=== PATIENT | female | born 1955 | race Hispanic/Latino ===

== ENCOUNTER → 2018-04-07 | Outpatient (CLI) | payer OTHER ==
[~2018-04-07] MED LIST: ACAR25TA2 PO; DULO30CA51 PO; FENO160T16 PO; FURO40TA5 PO; GLIM4TAB3 PO; INSU100V3 SQ; LOSA25TA16 PO; METO-408 PO; METO10TA3 PO; MIRT30TA7 PO; NITR0.4T SL; NPH,100V SQ; ONDA4TAB10 PO; PANT40TA25 PO; PRAV80TA21 PO; TOPI50TA24 PO
== END | disposition home or self-care (01) ==
LOC: OIH 08:21
PROVIDERS: ATTEND Internal Medicine Gastroenterology
DX: K59.04 Chronic idiopathic constipation (principal)
CPT/HCPCS: 74018

== ENCOUNTER → 2018-08-18 | Outpatient (CLI) | payer OTHER ==
[~2018-08-18] MED LIST changes: -LOSA25TA16 PO; +LOSA25TA41 PO; +MIRT-73 PO; -MIRT30TA7 PO
== END | disposition home or self-care (01) ==
LOC: RAH 10:40
PROVIDERS: ATTEND Internal Medicine Gastroenterology
DX: K31.89 Other diseases of stomach and duodenum (principal)
CPT/HCPCS: 78264; A9541

== ENCOUNTER → 2020-01-26 | Outpatient (CLI) | payer OTHER ==
[~2020-01-26] MED LIST changes: -DULO30CA51 PO; +DULO30CA52 PO; -GLIM4TAB3 PO; +GLIM4TAB36 PO; -PANT40TA25 PO; +PANT40TA54 PO
== END | disposition home or self-care (01) ==
LOC: SHCH 09:19
PROVIDERS: ATTEND Internal Medicine Cardiovascular Disease
DX: I08.0 Rheumatic disorders of both mitral and aortic valves (principal); R09.89 Other specified symptoms and signs involving the circulatory and respiratory systems; I10 Essential (primary) hypertension
CPT/HCPCS: 93306; 93880

== ENCOUNTER → 2020-09-01 | Outpatient (CLI) | payer OTHER ==
[~2020-09-01] MED LIST changes: +REGADENOSON 0.4 MG/5 ML PF SYG IVP SCH
== END | disposition home or self-care (01) ==
LOC: SHCH 09:28
PROVIDERS: ATTEND Internal Medicine Cardiovascular Disease
DX: R01.1 Cardiac murmur, unspecified (principal); I10 Essential (primary) hypertension; R53.83 Other fatigue; R42 Dizziness and giddiness; F41.9 Anxiety disorder, unspecified; R68.2 Dry mouth, unspecified; R06.02 Shortness of breath
CPT/HCPCS: 78452; 93017; 96374; A9500 ×2

== ENCOUNTER → 2020-10-14 | Outpatient (CLI) | payer OTHER ==
[~2020-10-14] VITALS: Ht 158.8 cm; Wt 123.8 kg
[~2020-10-14] MED LIST changes: +0.9% NACL 500ML IV.SOLN 500 ML IV SCH; +BUSP15TA3 PO; +CLOP75TA32 PO; +NPH,100I SQ; +POTA20TA12 PO; -REGADENOSON 0.4 MG/5 ML PF SYG IVP SCH; +RIVA15TA PO; +TIZA-194 PO
[2020-10-14 09:41] LABS: BASOPHILS % (AUTO) 0.6 % (0.0-5.0); EOSINOPHILS % (AUTO) 4.3 % (0.0-8.0); HEMATOCRIT 39.7 % (36-48); LYMPHOCYTES % (AUTO) 17.1 % (21.0-51.0); MEAN CORPUSCULAR HEMOGLOBIN 28.2 pg (27.0-33.0); MEAN CORPUSCULAR HGB CONC 30.2 g/dL (32.0-36.0); MEAN CORPUSCULAR VOLUME 93.2 fL (79-99); MONOCYTES % (AUTO) 5.2 % (3.0-13.0); NEUTROPHILS % (AUTO) 72.4 % (40.0-77.0); PLATELET COUNT (AUTO) 265 K/uL (130-400); RED BLOOD CELL COUNT(AUTO) 4.26 MIL/uL (4.00-5.50); RED CELL DISTRIBUTION WIDTH 14.8 % (11.0-15.5); WHITE BLOOD COUNT (AUTO) 5.4 K/uL (4.8-10.8)
[2020-10-14 09:48] LABS: CREATININE 1.4 mg/dL (0.5-1.5); POTASSIUM 4.9 mmol/L (3.5-5.1)
[2020-10-14 09:50] LABS: APPEARANCE,URINE Clear (CLEAR); BILIRUBIN,URINE Negative (NEGATIVE); COLOR,URINE Yellow (YELLOW); GLUCOSE, URINE (UA) Negative (NEGATIVE); KETONES,URINE Negative (NEGATIVE); LEUKOCYTE ESTERASE ,URINE Small (NEGATIVE); NITRATE,URINE Negative (NEGATIVE); OCCULT BLOOD,URINE Negative (NEGATIVE); PROTEIN,URINE Negative (NEGATIVE)
[2020-10-14 09:53] LABS: INR 1.28 (0.85-1.15); PROTHROMBIN TIME 13.6 SEC (9.6-11.6)
[2020-10-14 09:54] LABS: PARTIAL THROMBOPLASTIN TIME 33.6 SEC (26.3-35.5)
[2020-10-14 10:14] VITALS: BP 145/66
[2020-10-14 10:16] LABS: BACTERIA,URINE Rare /HPF (None Seen); RBC,URINE 0-1 /HPF (0-1); SQUAMOUS EPITHELIAL CELL,UR Rare /HPF (0-2); WBC,URINE 0-1 /HPF (0-1)
== END | disposition home or self-care (01) ==
LOC: EDSTATUS 08:00 → DAH 10:00
PROVIDERS: ATTEND Internal Medicine Cardiovascular Disease
DX: Z01.810 Encounter for preprocedural cardiovascular examination (principal); I25.10 Atherosclerotic heart disease of native coronary artery without angina pectoris; Z79.01 Long term (current) use of anticoagulants
CPT/HCPCS: 36415; 71045; 80048; 81001; 85025; 85610; 85730; 93005

== ENCOUNTER 2020-10-21 10:26 | Observation (INO) | payer OTHER ==
[2020-10-19 12:50] VITALS: BP 142/79
[~2020-10-21] VITALS: Ht 157.5 cm; Wt 173.1 kg
[~2020-10-21 10:26] MED LIST changes: -0.9% NACL 500ML IV.SOLN 500 ML IV SCH; +0.9%NACL 1000ML 1,000 ML IV SCH; -POTA20TA12 PO
[2020-10-21 10:46] VITALS: BP 138/51
[2020-10-21 11:14] LABS: HEMATOCRIT 37.9 % (36-48); MEAN CORPUSCULAR HEMOGLOBIN 28.6 pg (27.0-33.0); MEAN CORPUSCULAR HGB CONC 30.1 g/dL (32.0-36.0); MEAN CORPUSCULAR VOLUME 95.2 fL (79-99); PLATELET COUNT (AUTO) 264 K/uL (130-400); RED BLOOD CELL COUNT(AUTO) 3.98 MIL/uL (4.00-5.50); RED CELL DISTRIBUTION WIDTH 14.8 % (11.0-15.5); WHITE BLOOD COUNT (AUTO) 6.1 K/uL (4.8-10.8)
[2020-10-21 11:16] LABS: CREATININE 1.4 mg/dL (0.5-1.5); POTASSIUM 4.2 mmol/L (3.5-5.1)
[2020-10-21 11:18] LABS: BASOPHILS % (AUTO) 0.5 % (0.0-5.0); EOSINOPHILS % (AUTO) 3.7 % (0.0-8.0); LYMPHOCYTES % (AUTO) 14.4 % (21.0-51.0); MONOCYTES % (AUTO) 5.9 % (3.0-13.0)
[2020-10-21 11:47] LABS: INR 1.11 (0.85-1.15)
[2020-10-21 11:48] LABS: PARTIAL THROMBOPLASTIN TIME 27.6 SEC (26.3-35.5)
[2020-10-21 14:51] LABS: APPEARANCE,URINE Clear (CLEAR); BILIRUBIN,URINE Negative (NEGATIVE); COLOR,URINE Yellow (YELLOW); GLUCOSE, URINE (UA) Negative (NEGATIVE); KETONES,URINE Negative (NEGATIVE); LEUKOCYTE ESTERASE ,URINE Small (NEGATIVE); NITRATE,URINE Negative (NEGATIVE); OCCULT BLOOD,URINE Negative (NEGATIVE); PROTEIN,URINE Negative (NEGATIVE); UROBILINOGEN,URINE 0.2 mg/dL (0.2-1.0)
[2020-10-21 15:05] LABS: BACTERIA,URINE Rare /HPF (None Seen); RBC,URINE None Seen /HPF (0-1); SQUAMOUS EPITHELIAL CELL,UR 0-2 /HPF (0-2); WBC,URINE 0-1 /HPF (0-1)
[2020-10-21] MEDS ORDERED: LIDOCAINE HCL 400MG/20ML VIAL ONE (16:22)
[2020-10-21] MEDS ORDERED: NITROGLYCERIN 2 MG VIAL IV ONE (16:22)
[2020-10-21] MEDS ORDERED: IOHEXOL-350 50ML VIAL IV ONE (16:22)
[2020-10-21] MEDS ORDERED: SODIUM BICARB 50MEQ 50ML VIAL 50 ML ONE (16:22)
[2020-10-21] MEDS ORDERED: MIDAZOLAM HCL 1 MG/ML 2ML VIAL ONE (16:22)
[2020-10-21] MEDS ORDERED: MEPERIDINE-PF 25 MG/ML SYG ONE (16:22)
[2020-10-21] MEDS ORDERED: IOHEXOL-350 75 ML VIAL IV ONE (16:22)
[2020-10-21] MEDS: 0.9%NACL 10ML VIAL IVP SCH (18:00)
[2020-10-21] MEDS ORDERED: GLUCAGON 1MG KIT 1 MG ML IM PRN ×2 (18:00→18:30)
[2020-10-21] MEDS ORDERED: DEXTROSE 50%-WATER 50 ML DISP.SYRIN IV PRN ×2 (18:00→18:30)
[2020-10-21] MEDS ORDERED: POTASSIUM CHLORIDE 10% ELIXIR 20 MEQ/15 ML UDCUP PO PRN (18:30)
[2020-10-21] MEDS ORDERED: LIDOCAINE HCL-MPF 1% 2ML VIAL IV PRN (18:30)
[2020-10-21] MEDS ORDERED: POTASSIUM CHLORIDE 20MEQ/100ML 100 ML IV PRN (18:30)
[2020-10-21] MEDS ORDERED: KCL 20 MEQ ERTAB PO PRN (18:30)
[2020-10-21 20:00] VITALS: BP 127/45
[2020-10-21] MEDS: BUSPIRONE HCL 5 MG TABLET PO SCH (20:56)
[2020-10-21] MEDS ORDERED: INSULIN HUMULIN R 100 UNIT/ML 3ML SQ SCH (21:00)
[2020-10-21] MEDS: INSULIN HUMULIN R 100 UNIT/ML 3ML SQ SCH (21:00)
[2020-10-21] MEDS ORDERED: ATORVASTATIN 20 MG TABLET PO SCH (21:00)
[2020-10-21] MEDS ORDERED: TIZANIDINE HCL 2 MG TABLET PO SCH (21:00)
[2020-10-21] MEDS ORDERED: NON-FORMULARY MEDICATION 1 EACH (Buspirone HCl 15 MG) PO SCH (21:00)
[2020-10-21] MEDS ORDERED: LOSARTAN 25 MG TABLET PO SCH (21:00)
[2020-10-21] MEDS ORDERED: NON-FORMULARY MEDICATION 1 EACH (Pravastatin Sodium 80 MG) PO SCH (21:00)
[2020-10-21] MEDS ORDERED: INSULIN NPH 100 UNIT/ML 3ML SQ SCH (21:00)
[2020-10-21] MEDS ORDERED: MIRTAZAPINE 15 MG TABLET PO SCH (21:00)
[2020-10-21] MEDS ORDERED: NON-FORMULARY MEDICATION 1 EACH (Mirtazapine 30 MG) PO SCH (21:00)
[2020-10-21] MEDS: METOCLOPRAMIDE 10 MG TABLET PO SCH (21:01)
[2020-10-22] VITALS: BP 121/73
[2020-10-22] MEDS: 0.9%NACL 10ML VIAL IVP SCH ×2 (02:34→10:05)
[2020-10-22 04:00] VITALS: BP 134/57
[2020-10-22 05:32] LABS: HEMATOCRIT 37.1 % (36-48); MEAN CORPUSCULAR HGB CONC 29.6 g/dL (32.0-36.0); MEAN CORPUSCULAR VOLUME 94.4 fL (79-99); PLATELET COUNT (AUTO) 253 K/uL (130-400); RED BLOOD CELL COUNT(AUTO) 3.93 MIL/uL (4.00-5.50); RED CELL DISTRIBUTION WIDTH 14.9 % (11.0-15.5); WHITE BLOOD COUNT (AUTO) 5.9 K/uL (4.8-10.8)
[2020-10-22 05:43] LABS: CREATININE 1.5 mg/dL (0.5-1.5); POTASSIUM 3.6 mmol/L (3.5-5.1)
[2020-10-22] MEDS: INSULIN HUMULIN R 100 UNIT/ML 3ML SQ SCH ×2 (06:36→11:32)
[2020-10-22 08:00] VITALS: BP 128/65
[2020-10-22] MEDS ORDERED: FURO40TA5 PO ×2 (08:17)
[2020-10-22] MEDS ORDERED: POTA20TA12 PO ×2 (08:18)
[2020-10-22] MEDS ORDERED: KCL 20 MEQ ERTAB PO SCH (08:30)
[2020-10-22] MEDS ORDERED: FUROSEMIDE 40MG VIAL IV SCH (08:30)
[2020-10-22] MEDS ORDERED: CLOPIDOGREL 75MG TAB PO SCH (09:00)
[2020-10-22] MEDS ORDERED: NPH HUMAN INSULIN ISOPHANE SQ SCH (09:00)
[2020-10-22] MEDS ORDERED: [UNRECOGNIZED DRUG - OTHER] SQ SCH (09:00)
[2020-10-22] MEDS ORDERED: NON-FORMULARY MEDICATION 1 EACH (Topiramate 50 MG) PO SCH (09:00)
[2020-10-22] MEDS ORDERED: TOPIRAMATE 25 MG TABLET PO SCH (09:00)
[2020-10-22] MEDS ORDERED: PANTOPRAZOLE 40 MG TAB DR PO SCH (09:00)
[2020-10-22] MEDS ORDERED: FUROSEMIDE 40 MG TABLET PO SCH (09:00)
[2020-10-22] MEDS ORDERED: NON-FORMULARY MEDICATION 1 EACH (Fenofibrate 160 MG) PO SCH (09:00)
[2020-10-22] MEDS ORDERED: INSULIN NPH 100 UNIT/ML 3ML SQ SCH (09:00)
[2020-10-22] MEDS ORDERED: NON-FORMULARY MEDICATION 1 EACH (Metoprolol Succinate 25 MG) PO SCH (09:00)
[2020-10-22] MEDS ORDERED: METOPROLOL SUCCINATE 50 MG TAB.SR.24H PO SCH (09:00)
[2020-10-22] MEDS ORDERED: FENOFIBRATE NANOCRYSTALLIZED 145 MG TAB PO SCH (09:00)
[2020-10-22] MEDS: BUSPIRONE HCL 5 MG TABLET PO SCH (10:03)
[2020-10-22] MEDS: METOCLOPRAMIDE 10 MG TABLET PO SCH (10:04)
[2020-10-22 12:00] VITALS: BP 133/65
[2020-10-24] MEDS ORDERED: NITR0.4T SL ×2 (10:18)
== END 2020-10-22 16:40 | disposition home or self-care (01) ==
LOC: DAH 10:26 → 4BH 10:27
PROVIDERS: ADMIT Internal Medicine; ATTEND Internal Medicine
DX: I13.0 Hypertensive heart and chronic kidney disease with heart failure and stage 1 through stage 4 chronic kidney disease, or unspecified chronic kidney disease (principal); E11.22 Type 2 diabetes mellitus with diabetic chronic kidney disease; N18.32 Chronic kidney disease, stage 3b; I50.33 Acute on chronic diastolic (congestive) heart failure; E66.01 Morbid (severe) obesity due to excess calories; K21.9 Gastro-esophageal reflux disease without esophagitis; K58.1 Irritable bowel syndrome with constipation; I25.10 Atherosclerotic heart disease of native coronary artery without angina pectoris; D63.1 Anemia in chronic kidney disease; I48.91 Unspecified atrial fibrillation; H40.9 Unspecified glaucoma; H26.9 Unspecified cataract; G25.81 Restless legs syndrome; I73.9 Peripheral vascular disease, unspecified; G47.33 Obstructive sleep apnea (adult) (pediatric); F32.4 Major depressive disorder, single episode, in partial remission; H40.50X0 Glaucoma secondary to other eye disorders, unspecified eye, stage unspecified; H43.10 Vitreous hemorrhage, unspecified eye; H54.8 Legal blindness, as defined in USA; E11.65 Type 2 diabetes mellitus with hyperglycemia; K31.84 Gastroparesis; D68.59 Other primary thrombophilia; E11.36 Type 2 diabetes mellitus with diabetic cataract; E11.42 Type 2 diabetes mellitus with diabetic polyneuropathy; F32.9 Major depressive disorder, single episode, unspecified; E11.43 Type 2 diabetes mellitus with diabetic autonomic (poly)neuropathy; E11.51 Type 2 diabetes mellitus with diabetic peripheral angiopathy without gangrene; Z79.4 Long term (current) use of insulin; Z79.01 Long term (current) use of anticoagulants; Z95.1 Presence of aortocoronary bypass graft; Z68.44 Body mass index [BMI] 60.0-69.9, adult
CPT/HCPCS: 36415 ×2; 80048 ×2; 81001; 82948 ×4; 85025; 85027; 85610; 85730; 93459; 96372 ×2; 96374; A4215; A4216; A4221; A4222; A4223 ×3; A4606; A4615; A4663; C1760; C1894; G0378 ×23; J1644; J1815 ×3; J1940; J2175; J2250; J3490 ×3; Q9967 ×2; 99156; 99157

== ENCOUNTER 2021-01-16 07:07 | Day surgery (SDC) | payer OTHER ==
[~2021-01-16] VITALS: Ht 157.5 cm; Wt 128.4 kg
[2021-01-16] VITALS (9 sets, daily range): BP systolic 94–142; BP diastolic 39–63
[~2021-01-16 07:07] MED LIST changes: -0.9%NACL 1000ML 1,000 ML IV SCH; -ACAR25TA2 PO; -DULO30CA52 PO; -GLIM4TAB36 PO; -NPH,100V SQ; -ONDA4TAB10 PO; +POTA-192 PO
[2021-01-16] MEDS ORDERED: 0.9%NACL 1000ML 1,000 ML IV ONE (07:19)
[2021-01-16] MEDS ORDERED: PROPOFOL 10 MG/ML 20ML VIAL IV ONE (09:18)
[2021-04-21] MEDS ORDERED: [UNRECOGNIZED DRUG - OTHER] (12:17)
== END 2021-01-16 10:00 | disposition home or self-care (01) ==
LOC: DAH 07:07 → ENDO 07:07
PROVIDERS: ATTEND Surgery
DX: K21.9 Gastro-esophageal reflux disease without esophagitis (principal); Z20.822 Contact with and (suspected) exposure to COVID-19; K29.50 Unspecified chronic gastritis without bleeding; K31.7 Polyp of stomach and duodenum; I10 Essential (primary) hypertension; I25.10 Atherosclerotic heart disease of native coronary artery without angina pectoris; E66.01 Morbid (severe) obesity due to excess calories; G47.30 Sleep apnea, unspecified; E11.9 Type 2 diabetes mellitus without complications; F41.9 Anxiety disorder, unspecified; Z82.49 Family history of ischemic heart disease and other diseases of the circulatory system; Z83.3 Family history of diabetes mellitus; Z68.42 Body mass index [BMI] 45.0-49.9, adult; Z98.890 Other specified postprocedural states; Z98.84 Bariatric surgery status
CPT/HCPCS: 43239; 71045; 82948; 87635; 88305; 88342; 93005; A4215 ×2; A4221; A4222; A4223; A4606; A4620; A4657; A4663; C9803; J2704; J7030

== ENCOUNTER → 2021-01-20 | Outpatient (CLI) | payer OTHER ==
[~2021-01-20] MED LIST changes: -POTA-192 PO; +POTA20TA12 PO
== END | disposition home or self-care (01) ==
LOC: DTH 12:54
PROVIDERS: ATTEND Surgery
DX: E66.01 Morbid (severe) obesity due to excess calories (principal); G47.33 Obstructive sleep apnea (adult) (pediatric); I10 Essential (primary) hypertension; E11.9 Type 2 diabetes mellitus without complications; M19.91 Primary osteoarthritis, unspecified site; E78.00 Pure hypercholesterolemia, unspecified; K21.9 Gastro-esophageal reflux disease without esophagitis
CPT/HCPCS: 97803

== ENCOUNTER 2021-04-20 09:00 | Inpatient (IN) | payer OTHER ==
[2021-04-18 09:14] LABS: BASOPHILS % (AUTO) 0.6 % (0.0-5.0); EOSINOPHILS % (AUTO) 2.8 % (0.0-8.0); HEMATOCRIT 38.8 % (36-48); LYMPHOCYTES % (AUTO) 14.5 % (21.0-51.0); MEAN CORPUSCULAR HEMOGLOBIN 28.2 pg (27.0-33.0); MEAN CORPUSCULAR HGB CONC 30.9 g/dL (32.0-36.0); MEAN CORPUSCULAR VOLUME 91.3 fL (79-99); MONOCYTES % (AUTO) 5.8 % (3.0-13.0); NEUTROPHILS % (AUTO) 75.9 % (40.0-77.0); PLATELET COUNT (AUTO) 306 K/uL (130-400); RED BLOOD CELL COUNT(AUTO) 4.25 MIL/uL (4.00-5.50); RED CELL DISTRIBUTION WIDTH 13.8 % (11.0-15.5); WHITE BLOOD COUNT (AUTO) 7.1 K/uL (4.8-10.8)
[2021-04-18 09:25] LABS: CREATININE 1.7 mg/dL (0.5-1.5)
[2021-04-18 09:38] LABS: INR 1.27 (0.85-1.15); PROTHROMBIN TIME 13.5 SEC (9.6-11.6)
[~2021-04-20] VITALS: Ht 157.5 cm; Wt 115.8 kg
[~2021-04-20 09:00] MED LIST changes: -FENO160T16 PO; -FURO40TA5 PO; -NITR0.4T SL; -PANT40TA54 PO; -POTA20TA12 PO; -RIVA15TA PO
[2021-04-21 08:57] VITALS: BP 150/64
[2021-04-21] MEDS: CLINDAMYCIN IVPB 900MG/50ML 50 ML IV SCH (11:00)
[2021-04-21] MEDS ORDERED: POTA-79 PO (12:17)
[2021-04-21] MEDS ORDERED: MAGNESIUM CITRATE PO (12:17)
[2021-04-21] MEDS ORDERED: BISA-72 PO (12:17)
[2021-04-21] MEDS ORDERED: FURO40TA5 PO (12:17)
[2021-04-21] MEDS ORDERED: FENO50CA4 PO (12:17)
[2021-04-21] MEDS ORDERED: MULT-1367 PO (12:17)
[2021-04-21] MEDS ORDERED: SPIR25TA6 PO (12:17)
[2021-04-21] MEDS ORDERED: DABI150C PO (12:17)
[2021-04-21] MEDS ORDERED: DULO60CA64 PO (12:17)
[2021-04-23] MEDS: CLINDAMYCIN IVPB 900MG/50ML 50 ML IV SCH (11:00)
[2021-04-24] VITALS (25 sets, daily range): BP systolic 96–158; BP diastolic 44–76
[2021-04-24] MEDS ORDERED: BUPIVACAINE/PF 0.5% 30ML VIAL ONE (07:04)
[2021-04-24] MEDS ORDERED: SCOPOLAMINE HYDROBROMIDE 1 EACH ADH..PATCH TD ONE (07:51)
[2021-04-24] MEDS ORDERED: DEXMEDETOMIDINE HCL 200 MCG/2 ML VIAL IV ONE (07:54)
[2021-04-24] MEDS ORDERED: KETAMINE 50MG/ML SYRINGE 50 MG/ML DISP.SYRIN IV ONE (07:55)
[2021-04-24] MEDS ORDERED: PROPOFOL 10 MG/ML 20ML VIAL IV ONE (08:25)
[2021-04-24] MEDS ORDERED: MIDAZOLAM HCL 1 MG/ML 2ML VIAL ONE (08:25)
[2021-04-24] MEDS ORDERED: EPHEDRINE SULFATE 50 MG/ML AMPULE ONE (08:25)
[2021-04-24] MEDS ORDERED: ROCURONIUM BROMIDE 10MG/1ML 5ML VL ONE (08:26)
[2021-04-24] MEDS ORDERED: ONDANSETRON 4MG INJ ONE ×2 (08:28→10:08)
[2021-04-24] MEDS: CLINDAMYCIN IVPB 900MG/50ML 50 ML IV SCH (09:00)
[2021-04-24 09:22] LABS: INR 1.24 (0.85-1.15); PROTHROMBIN TIME 13.3 SEC (9.6-11.6)
[2021-04-24 09:23] LABS: PARTIAL THROMBOPLASTIN TIME 42.2 SEC (26.3-35.5)
[2021-04-24] MEDS ORDERED: PHENYLEPHRINE HCL 10 MG/ML 1ML VIAL IV ONE (09:49)
[2021-04-24 09:58] LABS: ABG BASE EXCESS -1.4 mmol/L (-2.0-3.0); ABG HCO3 23.9 mmol/L (21.0-28.0); ABG OXYGEN SATURATION 98.2 % (95.0-99.0); ABG PCO2 42 mmHg (32-45)
[2021-04-24] MEDS ORDERED: NITROGLYCERIN 1GM OINT 1 INCH/1GM TD ONE (10:09)
[2021-04-24] MEDS: 0.9%NACL 1000ML 1,000 ML IV SCH ×2 (10:10→11:46)
[2021-04-24] MEDS ORDERED: FENTANYL CITRATE PF 50 MCG/1 ML 2ML VIAL ONE (11:07)
[2021-04-24] MEDS ORDERED: SUGAMMADEX SODIUM 200 MG/2 ML VIAL IV ONE (11:10)
[2021-04-24] MEDS: ENOXAPARIN SODIUM 30 MG/0.3 ML SQ SCH ×2 (11:26→21:56)
[2021-04-24] MEDS ORDERED: ONDANSETRON 4MG INJ IVP PRN (11:30)
[2021-04-24] MEDS ORDERED: INSULIN HUMULIN R 100 UNIT/ML 3ML SQ SCH (11:30)
[2021-04-24] MEDS ORDERED: CLINDAMYCIN IVPB 600MG/50ML 50 ML IV SCH (11:30)
[2021-04-24] MEDS ORDERED: LACTATED RINGERS 1000ML 1,000 ML IV SCH (11:30)
[2021-04-24] MEDS ORDERED: DEXTROSE 50%-WATER 50 ML DISP.SYRIN IV PRN (16:30)
[2021-04-24] MEDS ORDERED: GLUCAGON 1MG KIT 1 MG ML IM PRN (16:30)
[2021-04-24] MEDS: CLINDAMYCIN IVPB 600MG/50ML 50 ML IV SCH (18:00)
[2021-04-24] MEDS: INSULIN HUMULIN R 100 UNIT/ML 3ML SQ SCH ×2 (18:04→22:06)
[2021-04-24] MEDS ORDERED: MORPHINE 4 MG SYG ONE (18:50)
[2021-04-24] MEDS: MORPHINE 5 MG/ML VIAL (5MG OR GREATER DOSE) IVP PRN (18:53)
[2021-04-24] MEDS ORDERED: LOSARTAN 25 MG TABLET PO SCH (21:00)
[2021-04-24] MEDS: FUROSEMIDE 40 MG TABLET PO SCH (21:54)
[2021-04-24] MEDS: FAMOTIDINE 20MG VIAL IV SCH (21:54)
[2021-04-25] MEDS: CLINDAMYCIN IVPB 600MG/50ML 50 ML IV SCH (01:50)
[2021-04-25 04:38] VITALS: BP 131/59
[2021-04-25 05:52] LABS: BASOPHILS % (AUTO) 0.1 % (0.0-5.0); HEMATOCRIT 28.4 % (36-48); LYMPHOCYTES % (AUTO) 4.7 % (21.0-51.0); MEAN CORPUSCULAR HEMOGLOBIN 28.2 pg (27.0-33.0); MEAN CORPUSCULAR HGB CONC 30.3 g/dL (32.0-36.0); MEAN CORPUSCULAR VOLUME 93.1 fL (79-99); NEUTROPHILS % (AUTO) 86.6 % (40.0-77.0); PLATELET COUNT (AUTO) 262 K/uL (130-400); RED BLOOD CELL COUNT(AUTO) 3.05 MIL/uL (4.00-5.50); WHITE BLOOD COUNT (AUTO) 8.3 K/uL (4.8-10.8)
[2021-04-25 06:09] LABS: ALBUMIN 3.3 g/dL (3.5-5.0); BILIRUBIN,TOTAL 0.9 mg/dL (0.2-1.0); MAGNESIUM 2.8 mg/dL (1.80-2.40); POTASSIUM 4.4 mmol/L (3.5-5.1); TOTAL PROTEIN, SERUM 6.7 g/dL (6.0-8.3)
[2021-04-25] MEDS: INSULIN HUMULIN R 100 UNIT/ML 3ML SQ SCH ×4 (06:44→21:42)
[2021-04-25 07:51] VITALS: BP 152/67
[2021-04-25] MEDS: FAMOTIDINE 20MG VIAL IV SCH ×2 (08:44→21:33)
[2021-04-25] MEDS: FUROSEMIDE 40 MG TABLET PO SCH ×2 (08:45→21:34)
[2021-04-25] MEDS: ENOXAPARIN SODIUM 30 MG/0.3 ML SQ SCH ×2 (08:46→21:36)
[2021-04-25] MEDS: SPIRONOLACTONE 25 MG TAB PO SCH (08:46)
[2021-04-25] MEDS: LOSARTAN 25 MG TABLET PO SCH ×2 (08:46→21:33)
[2021-04-25] MEDS: METOPROLOL SUCCINATE 50 MG TAB.SR.24H PO SCH (08:46)
[2021-04-25] MEDS: THIAMINE HCL 100 MG/ML 2ML VIAL IVP SCH (08:46)
[2021-04-25] MEDS: 0.9%NACL 1000ML 1,000 ML IV SCH (11:04)
[2021-04-25 11:10] VITALS: BP 123/54
[2021-04-25 15:57] VITALS: BP 134/57
[2021-04-25] MEDS: MORPHINE 5 MG/ML VIAL (5MG OR GREATER DOSE) IVP PRN (16:55)
[2021-04-25 20:33] VITALS: BP 121/47
[2021-04-25 23:22] VITALS: BP 118/50
[2021-04-26] MEDS: 0.9%NACL 1000ML 1,000 ML IV SCH (00:16)
[2021-04-26 04:57] LABS: BASOPHILS % (AUTO) 0.2 % (0.0-5.0); EOSINOPHILS % (AUTO) 0.8 % (0.0-8.0); HEMATOCRIT 24.8 % (36-48); MEAN CORPUSCULAR HEMOGLOBIN 28.2 pg (27.0-33.0); MEAN CORPUSCULAR HGB CONC 29.8 g/dL (32.0-36.0); MEAN CORPUSCULAR VOLUME 94.7 fL (79-99); MONOCYTES % (AUTO) 6.1 % (3.0-13.0); NEUTROPHILS % (AUTO) 85.3 % (40.0-77.0); PLATELET COUNT (AUTO) 218 K/uL (130-400); RED BLOOD CELL COUNT(AUTO) 2.62 MIL/uL (4.00-5.50); RED CELL DISTRIBUTION WIDTH 14.3 % (11.0-15.5)
[2021-04-26 05:00] VITALS: BP 120/54
[2021-04-26 05:24] LABS: BILIRUBIN,TOTAL 0.6 mg/dL (0.2-1.0); CREATININE 2.1 mg/dL (0.5-1.5); POTASSIUM 4.5 mmol/L (3.5-5.1); TOTAL PROTEIN, SERUM 6.5 g/dL (6.0-8.3)
[2021-04-26] MEDS: INSULIN HUMULIN R 100 UNIT/ML 3ML SQ SCH ×4 (06:19→21:11)
[2021-04-26 07:41] VITALS: BP 122/60
[2021-04-26] MEDS: THIAMINE HCL 100 MG/ML 2ML VIAL IVP SCH (09:55)
[2021-04-26] MEDS: FUROSEMIDE 40 MG TABLET PO SCH ×2 (09:55→21:02)
[2021-04-26] MEDS: METOPROLOL SUCCINATE 50 MG TAB.SR.24H PO SCH (09:55)
[2021-04-26] MEDS: LOSARTAN 25 MG TABLET PO SCH ×2 (09:55→21:02)
[2021-04-26] MEDS: FAMOTIDINE 20MG VIAL IV SCH ×2 (09:55→21:02)
[2021-04-26] MEDS: SPIRONOLACTONE 25 MG TAB PO SCH (09:56)
[2021-04-26] MEDS: ENOXAPARIN SODIUM 30 MG/0.3 ML SQ SCH ×2 (09:56→21:03)
[2021-04-26] MEDS: INSULIN GLARGINE 100 UNITS/ML 10 ML VIAL SQ SCH (09:57)
[2021-04-26 11:08] VITALS: BP 143/65
[2021-04-26 16:17] VITALS: BP 136/66
[2021-04-26 20:00] VITALS: BP 141/61
[2021-04-27] VITALS: BP 130/55
[2021-04-27] MEDS: 0.9%NACL 1000ML 1,000 ML IV SCH (02:04)
[2021-04-27 04:00] VITALS: BP 154/60
[2021-04-27 05:46] LABS: BASOPHILS % (AUTO) 0.4 % (0.0-5.0); EOSINOPHILS % (AUTO) 1.3 % (0.0-8.0); HEMATOCRIT 25.9 % (36-48); LYMPHOCYTES % (AUTO) 9.7 % (21.0-51.0); MEAN CORPUSCULAR HEMOGLOBIN 28.9 pg (27.0-33.0); MEAN CORPUSCULAR HGB CONC 30.1 g/dL (32.0-36.0); MEAN CORPUSCULAR VOLUME 95.9 fL (79-99); MONOCYTES % (AUTO) 5.9 % (3.0-13.0); NEUTROPHILS % (AUTO) 82.2 % (40.0-77.0); PLATELET COUNT (AUTO) 242 K/uL (130-400); RED CELL DISTRIBUTION WIDTH 14.2 % (11.0-15.5); WHITE BLOOD COUNT (AUTO) 8.4 K/uL (4.8-10.8)
[2021-04-27 06:06] LABS: BILIRUBIN,TOTAL 0.6 mg/dL (0.2-1.0); CREATININE 1.5 mg/dL (0.5-1.5); POTASSIUM 4.5 mmol/L (3.5-5.1); TOTAL PROTEIN, SERUM 6.8 g/dL (6.0-8.3)
[2021-04-27] MEDS: INSULIN HUMULIN R 100 UNIT/ML 3ML SQ SCH ×2 (06:20→12:38)
[2021-04-27 08:05] VITALS: BP 176/84
[2021-04-27] MEDS: THIAMINE HCL 100 MG/ML 2ML VIAL IVP SCH (08:33)
[2021-04-27] MEDS: FAMOTIDINE 20MG VIAL IV SCH (08:34)
[2021-04-27] MEDS: FUROSEMIDE 40 MG TABLET PO SCH (08:40)
[2021-04-27] MEDS: LOSARTAN 25 MG TABLET PO SCH (08:40)
[2021-04-27] MEDS: SPIRONOLACTONE 25 MG TAB PO SCH (08:40)
[2021-04-27] MEDS: ENOXAPARIN SODIUM 30 MG/0.3 ML SQ SCH (08:41)
[2021-04-27] MEDS: METOPROLOL SUCCINATE 50 MG TAB.SR.24H PO SCH (08:41)
[2021-04-27] MEDS: INSULIN GLARGINE 100 UNITS/ML 10 ML VIAL SQ SCH (08:48)
[2021-04-27 11:22] VITALS: BP 152/73
== END 2021-04-27 16:49 | disposition home or self-care (01) | DRG 621 ==
LOC: DAHIP 04-24 07:00 → EDSTATUS 04-24 09:00 → 3AH 04-24 12:50
PROVIDERS: ADMIT Surgery; ATTEND Surgery
PROC: 0D164ZA Bypass Stomach to Jejunum, Percutaneous Endoscopic Approach (ICD-10-PCS; principal; 2021-04-24 08:35)
PROC: 5A09357 Assistance with Respiratory Ventilation, Less than 24 Consecutive Hours, Continuous Positive Airway Pressure (ICD-10-PCS; 2021-04-24 08:35)
DX: E66.01 Morbid (severe) obesity due to excess calories (principal); K21.9 Gastro-esophageal reflux disease without esophagitis; I48.0 Paroxysmal atrial fibrillation; E78.5 Hyperlipidemia, unspecified; E11.319 Type 2 diabetes mellitus with unspecified diabetic retinopathy without macular edema; G47.33 Obstructive sleep apnea (adult) (pediatric); Z20.822 Contact with and (suspected) exposure to COVID-19; F32.A Depression, unspecified; I25.10 Atherosclerotic heart disease of native coronary artery without angina pectoris; H54.8 Legal blindness, as defined in USA; N18.9 Chronic kidney disease, unspecified; E11.22 Type 2 diabetes mellitus with diabetic chronic kidney disease; I13.10 Hypertensive heart and chronic kidney disease without heart failure, with stage 1 through stage 4 chronic kidney disease, or unspecified chronic kidney disease; Z68.42 Body mass index [BMI] 45.0-49.9, adult; Z88.0 Allergy status to penicillin; Z88.8 Allergy status to other drugs, medicaments and biological substances; Z95.1 Presence of aortocoronary bypass graft; Z95.5 Presence of coronary angioplasty implant and graft; Z79.02 Long term (current) use of antithrombotics/antiplatelets; Z79.01 Long term (current) use of anticoagulants; Z79.899 Other long term (current) drug therapy; Z83.3 Family history of diabetes mellitus; Z82.49 Family history of ischemic heart disease and other diseases of the circulatory system
CPT/HCPCS: 36415; 43235; 71045; 80048; 80053; 82435; 82803; 82947; 82948; 83605; 83735; 84100; 84132; 84295; 85018; 85025; 85610; 85730; 86850; 86900; 86901; 87635; 93005; 94660; 97039; G0378; J1650; J1815; J2250; J2270; J2370; J2405; J2704; J3010; J3411; J3490; J7030; J7120

== ENCOUNTER → 2021-10-04 | Outpatient (CLI) | payer OTHER ==
[~2021-10-04] MED LIST changes: +BISA-72 PO; +DABI150C PO; +DULO60CA64 PO; +FENO50CA4 PO; +FURO40TA5 PO; +MAGNESIUM CITRATE PO; +MULT-1367 PO; +POTA-79 PO; +SPIR25TA6 PO
== END | disposition home or self-care (01) ==
LOC: SHCH 13:18
PROVIDERS: ATTEND Internal Medicine Cardiovascular Disease
DX: I08.0 Rheumatic disorders of both mitral and aortic valves (principal); I48.0 Paroxysmal atrial fibrillation; I11.9 Hypertensive heart disease without heart failure; I25.10 Atherosclerotic heart disease of native coronary artery without angina pectoris; I65.23 Occlusion and stenosis of bilateral carotid arteries; E11.9 Type 2 diabetes mellitus without complications; E78.5 Hyperlipidemia, unspecified; Z95.5 Presence of coronary angioplasty implant and graft; Z95.1 Presence of aortocoronary bypass graft
CPT/HCPCS: 93306; 93880

== ENCOUNTER → 2021-10-18 | Outpatient (CLI) | payer OTHER | END | disposition home or self-care (01) | LOC: RAH 13:48 | PROVIDERS: ATTEND Internal Medicine | DX: S09.90XA Unspecified injury of head, initial encounter (principal); R41.82 Altered mental status, unspecified; X58.XXXA Exposure to other specified factors, initial encounter; Y93.89 Activity, other specified; Y92.89 Other specified places as the place of occurrence of the external cause; Y99.8 Other external cause status | CPT/HCPCS: 70450 ==

== ENCOUNTER → 2022-01-08 | Outpatient (CLI) | payer OTHER | END | disposition home or self-care (01) | LOC: RAH 09:22 | PROVIDERS: ATTEND Internal Medicine | DX: S09.90XA Unspecified injury of head, initial encounter (principal); W19.XXXA Unspecified fall, initial encounter; Y93.89 Activity, other specified; Y92.89 Other specified places as the place of occurrence of the external cause; Y99.8 Other external cause status | CPT/HCPCS: 70250 ==

== ENCOUNTER → 2022-07-02 | Outpatient (CLI) | payer OTHER ==
[~2022-07-02] MED LIST changes: +TOPI-255 PO; -TOPI50TA24 PO
== END | disposition home or self-care (01) ==
LOC: RAH 13:55
PROVIDERS: ATTEND Internal Medicine
DX: R22.1 Localized swelling, mass and lump, neck (principal)
CPT/HCPCS: 76536

== ENCOUNTER → 2023-06-26 | Outpatient (CLI) | payer OTHER ==
[~2023-06-26] MED LIST changes: +ARIP2TAB20 PO; -BISA-72 PO; -CLOP75TA32 PO; +CYAN10007 IJ; -DABI150C PO; -DULO60CA64 PO; +ESCI-8 PO; -FENO50CA4 PO; +FERR-72 PO; -FURO40TA5 PO; +GABA-529 PO; -INSU100V3 SQ; -LOSA25TA41 PO; -MAGNESIUM CITRATE PO; -METO-408 PO; -METO10TA3 PO; -MIRT-73 PO; +MIRT45TA83 PO; -MULT-1367 PO; +NITR0.4T50 SL; -NPH,100I SQ; +PANT40TA55 PO; -POTA-79 PO; -PRAV80TA21 PO; +PRAV80TA43 PO; +SCOP1PAT11 TD; -SPIR25TA6 PO; -TIZA-194 PO; -TOPI-255 PO
== END | disposition home or self-care (01) ==
LOC: RAH 13:39
PROVIDERS: ATTEND Nurse Practitioner
DX: H90.8 Mixed conductive and sensorineural hearing loss, unspecified (principal)
CPT/HCPCS: 70480

== ENCOUNTER → 2023-07-18 | Outpatient (CLI) | payer OTHER ==
[~2023-07-18] MED LIST changes: +PRAV80TA21 PO; -PRAV80TA43 PO
== END | disposition home or self-care (01) ==
LOC: RAH 10:06
PROVIDERS: ATTEND Orthopaedic Surgery
DX: H93.A2 Pulsatile tinnitus, left ear (principal); H81.4 Vertigo of central origin
CPT/HCPCS: 70544; 70547

== ENCOUNTER → 2023-07-26 | Outpatient (CLI) | payer OTHER | END | disposition home or self-care (01) | LOC: RAH 14:32 | PROVIDERS: ATTEND Orthopaedic Surgery | DX: G31.9 Degenerative disease of nervous system, unspecified (principal); H81.4 Vertigo of central origin; G93.89 Other specified disorders of brain | CPT/HCPCS: 70551 ==

== ENCOUNTER → 2024-03-26 | Outpatient (CLI) | payer OTHER ==
[~2024-03-26] MED LIST changes: -ARIP2TAB20 PO; +ARIP2TAB66 PO
[2024-03-26] MEDS: REGADENOSON 0.4 MG/5 ML PF SYG IVP ONE (11:37)
== END | disposition home or self-care (01) ==
LOC: SHCH 09:15
PROVIDERS: ATTEND Internal Medicine Cardiovascular Disease
DX: I48.0 Paroxysmal atrial fibrillation (principal); I10 Essential (primary) hypertension
CPT/HCPCS: 78452; 93017; J2785; A9500 ×2

== ENCOUNTER → 2024-04-23 | Outpatient (CLI) | payer OTHER ==
--- NOTE | 2024-04-29 06:40 | HMCSR ---
APPROVED REPORT EXAM: Two-dimensional and M-mode echocardiogram with Doppler and color Doppler. INDICATION Atrial Fibrillation Hypertension 2D Dimensions RVDd4.5 cmLVEF(%)67.2 (>50%)LVED Vol(simp.)120.0 mL IVSd0.9 (0.7-1.1cm)FS(%)37 %LVES Vol(simp.)44.0 mL LVDd4.9 (3.8-5.6cm)Ao Root(2D)2.9 (2.0-3.7cm)LVEF(%, simp.)64 % PWd1.0 (0.7-1.1cm)LVOT diam2.0 (1.8-2.4cm)LA ESV INDEX (BP)46.02 mL/m2 LVDs3.1 (2.5-4.0cm)IVC diam1.6 cm Aortic Valve AoV Vmax2.4 m/Yaquelin Peak GR22.3 mmHgLVOT Vmax0.9 m/s AoV VTI0.6 mAo Mean GR10.9 mmHgLVOT VTI0.25 m APRIL (VMAX)1.3 cm2Al P1/2T660 msAVA (VTI) 1.3 cm2 Mitral Valve MV E Hunf705.2 cm/sDECEL Qciq553 msMV Peak GR13 mmHg MV A Vmax63.1 cm/sP 1/2 T56 msMV Mean GR3 mmHg E/A ratio2.6MVA (PHT)3.9 cm2MVA (VTI)1.4 cm2 MR Max PG115 mmHg TDI E/E' Qweezx76.0E/E' Xxpbdgl41.8 Pulmonary Valve PV Vmax1.2 m/sPV VTI0.35 mPV Mean GR4 mmHg PV Peak GR5.5 mmHgPI End Amy. Tariq 1.3 cm/s Tricuspid Valve TR Vmax3.5 m/sRAP (EST) 3 flJzGCEX57.5 mmHg TR Peak GR48.5 mmHg Left Ventricle Left ventricular cavity size is normal. There is normal LV segmental wall motion. There is normal lef t ventricular wall thickness. LVEF is 60%. No left ventricle thrombus noted on this study. Grade 3 di astolic dysfunction. Right Ventricle The right ventricle is moderately dilated. Right ventricular systolic function is mildly to moderatel y reduced. Atria The left atrium is severely dilated. The right atrium is moderately dilated. Aortic Valve Aortic valve is trileaflet, with a calcified left coronary leaflet that exhibits decreased excursion. Mild aortic regurgitation. Mild to moderate aortic stenosis with a calculated aortic valve area is 1 .3 cm2 with maximum pressure gradient of 22.3 mmHg and mean pressure gradient of 10.9 mmHg. Mitral Valve Mitral valve leaflets are mildly calcified. Severe posterior mitral annular calcification. Mitral reg urgitation is mild. Mild to moderate calcific, non-rheumatic miotral stenosis with a calculated bessy l valve area is 1.4 cm2 with maximum pressure gradient of 13.2 mmHg and mean pressure gradient of 3 m mHg. Tricuspid Valve The tricuspid valve leaflets appear normal. There is moderate tricuspid regurgitation. Right ventricu lar systolic pressure is estimated at 50-60 mmHg. Pulmonic Valve The pulmonic valve leaflets are thin and pliable; valve motion is normal. There is trace to mild valv ular regurgitation. Great Vessels The aortic root is normal in size. The IVC is normal in size and collapses >50% with inspiration. Pericardium No pericardial effusion. Conclusion Left ventricular cavity size is normal. LVEF is 60%. Grade 3 diastolic dysfunction. The right ventricle is moderately dilated. Right ventricular systolic function is mildly to moderately reduced. The left atrium is severely dilated. The right atrium is moderately dilated. Aortic valve is trileaflet, with a calcified left coronary leaflet that exhibits decreased excursion. Mild aortic regurgitation. Mild to moderate aortic stenosis with a calculated aortic valve area is 1.3 cm2 with maximum pressure gradient of 22.3 mmHg and mean pressure gradient of 10.9 mmHg. Mitral valve leaflets are mildly calcified. Severe posterior mitral annular calcification. Mitral regurgitation is mild. Mild to moderate calcific, non-rheumatic miotral stenosis with a calculated mitral valve area is 1.4 cm2 with maximum pressure gradient of 13.2 mmHg and mean pressure gradient of 3 mmHg. There is moderate tricuspid regurgitation. Right ventricular systolic pressure is estimated at 50-60 mmHg. There is trace to mild valvular regurgitation. The aortic root is normal in size. The IVC is normal in size and collapses >50% with inspiration. No pericardial effusion.
== END | disposition home or self-care (01) ==
LOC: SHCH 14:18
PROVIDERS: ATTEND Internal Medicine Cardiovascular Disease
DX: I08.8 Other rheumatic multiple valve diseases (principal); I48.0 Paroxysmal atrial fibrillation; I11.9 Hypertensive heart disease without heart failure; I48.91 Unspecified atrial fibrillation
CPT/HCPCS: 93306

== ENCOUNTER 2024-07-23 06:40 | Day surgery (SDC) | payer OTHER ==
[2024-07-21 08:58] VITALS: BP 154/67; PULSE 53; RESP 14; TEMP 98.2
[2024-07-21 09:02] LABS: BASOPHILS # (AUTO) 0.03 K/uL (0.00-0.20); BASOPHILS % (AUTO) 0.9 % (0.0-5.0); EOSINOPHILS # (AUTO) 0.11 K/uL (0.00-0.70); EOSINOPHILS % (AUTO) 3.3 % (0.0-8.0); HEMATOCRIT 32.1 % (36-48); IMMATURE GRANULOCYTE ABSOLUTE 0.01 K/uL (0-1); LYMPHOCYTES # (AUTO) 0.9 K/uL (1.0-4.8); LYMPHOCYTES % (AUTO) 25.8 % (21.0-51.0); MEAN CORPUSCULAR HEMOGLOBIN 30.1 pg (27.0-33.0); MEAN CORPUSCULAR HGB CONC 31.8 g/dL (32.0-36.0); MEAN CORPUSCULAR VOLUME 94.7 fL (79-99); MONOCYTES # (AUTO) 0.3 K/uL (0.1-1.0); MONOCYTES % (AUTO) 7.7 % (3.0-13.0); NEUTROPHILS # (AUTO) 2.1 K/uL (1.8-7.7); PLATELET COUNT (AUTO) 157 K/uL (130-400); RED BLOOD CELL COUNT(AUTO) 3.39 MIL/uL (4.00-5.50); RED CELL DISTRIBUTION WIDTH 14.9 % (11.0-15.5); WHITE BLOOD COUNT (AUTO) 3.4 K/uL (4.8-10.8)
[2024-07-21 09:07] LABS: APPEARANCE,URINE CLOUDY (CLEAR); BILIRUBIN,URINE NEGATIVE (NEGATIVE); COLOR,URINE YELLOW (YELLOW); GLUCOSE, URINE (UA) NEGATIVE (NEGATIVE); KETONES,URINE 5 mg/dL (NEGATIVE); LEUKOCYTE ESTERASE ,URINE 25 Leu/uL (NEGATIVE); NITRATE,URINE NEGATIVE (NEGATIVE); OCCULT BLOOD,URINE NEGATIVE (NEGATIVE); PH,URINE 5.5 (5.0-8.0); PROTEIN,URINE 100 mg/dL (NEGATIVE); UROBILINOGEN,URINE 3 mg/dL (0.2-1.0)
[2024-07-21 09:08] LABS: CREATININE 0.9 mg/dL (0.5-1.0); POTASSIUM 4.6 mmol/L (3.5-5.1)
[2024-07-21 09:08] LABS: ADD UA MICROSCOPIC YES
[2024-07-21 09:11] LABS: INR 1.03 (0.85-1.15); PROTHROMBIN TIME 10.9 SEC (9.6-11.6)
[2024-07-21 09:12] LABS: PARTIAL THROMBOPLASTIN TIME 31.5 SEC (26.3-35.5)
[2024-07-21 09:16] LABS: MUCUS,URINE RARE LPF (None Seen); SQUAMOUS EPITHELIAL CELL,UR MOD /HPF (0-2)
[2024-07-21 09:25] LABS: B-TYPE NATRIURETIC PEPTIDE 348 pg/mL (0-100)
--- NOTE | 2024-07-21 09:32 | EKG ---
[facility] Test Date: 2024-07-21 Test Time: 08:45:36 Pat Name: PROMISE AUSTIN Department[facility] Room: Gender: F Asp [employer] C Developer: [id number] : 1955 Requested By: Dar GAONA Order Number: [id number] Reading MD: Zuhair Lockhart Measurements Intervals [place] Rate: 54 P: -15 MS: 193 QRS: 39 QRSD: 108 T: 25 QT: 453 QTc: 430 Interpretive Statements Sinus rhythm Inferior infarct, old Anterior infarct, old Compared to ECG 06/05/2024 15:23:46 Sinus bradycardia no longer present T-wave abnormality no longer present Possible ischemia no longer present Myocardial infarct finding still present Electronically Signed On 07-21-2024 11:20:49 CDT by Zuhair Lockhart Please click the below link to view image of tracing.
--- NOTE | 2024-07-21 09:46 | HMCIMG ---
PORTABLE CHEST RADIOGRAPH INDICATION: PRE OP COMPARISON: 02/14/2024 FINDINGS: Median sternotomy wires are in appropriate alignment. Heart size is normal. Mild calcific plaque is present along the aortic arch zapata. The pulmonary vascularity and dhaval appear normal. No abnormal pulmonary parenchymal opacity or consolidation identified. No significant pleural effusion noted. No pneumothorax detected. IMPRESSION: No radiographic evidence for any acute cardiopulmonary process.
--- NOTE | 2024-07-21 11:09 | NUR ---
NOTIFIED HARJIT HERNANDEZ NP INFORMED PT DID NOT START XARELTO WHEN ORDERED DUE TO PROBLEMS WITH PHARMACY. OK TO PROCEED AND PT WILL BE GIVEN INSTRUCTIONS WHEN TO TAKE POST PROCEDURE.
[~2024-07-23] VITALS: Ht 161.3 cm; Wt 65.2 kg
[2024-07-23] VITALS (13 sets, daily range): BP systolic 102–198; BP diastolic 40–75; PULSE 48–62; RESP 11–20; TEMP 97.3–208.2
[~2024-07-23 06:40] MED LIST changes: +AMLO-257 PO; -ARIP2TAB66 PO; -CYAN10007 IJ; -FERR-72 PO; +HYDR25 PO; -NITR0.4T50 SL; -PANT40TA55 PO; +RIVA20TA PO; -SCOP1PAT11 TD
[2024-07-23] MEDS ORDERED: LIDOCAINE HCL 400MG/20ML VIAL ONE (08:40)
[2024-07-23] MEDS ORDERED: IOHEXOL 350 MG/ML 100ML INFUS..BTL IV ONE (08:40)
[2024-07-23] MEDS ORDERED: HEParin-NS 1,000 UNIT/500 ML 1,000 ML IV ONE (08:40)
[2024-07-23] MEDS ORDERED: SODIUM BICARB 50MEQ 50ML VIAL 50 ML ONE (08:40)
[2024-07-23] MEDS ORDERED: HEParin 10,000 UNIT/10ML (1,000 UNIT/ML) VIAL ONE (08:40)
[2024-07-23] MEDS ORDERED: NITROGLYCERIN 50MG VIAL ONE (09:17)
[2024-07-23] MEDS ORDERED: MIDAZOLAM HCL 1 MG/ML 2ML VIAL ONE ×2 (09:20→09:27)
[2024-07-23] MEDS ORDERED: FENTanyl CITRate PF 50 MCG/1 ML 2ML VIAL ONE (09:20)
[2024-07-23] MEDS ORDERED: ATROPINE 1MG SYG IVP ONE ×2 (09:28→09:35)
[2024-07-23] MEDS ORDERED: hydrALAZine 20MG/ML VIAL ONE (09:52)
[2024-07-23] MEDS ORDERED: 0.9%NACL 1000ML 1,000 ML IV SCH (10:00)
[2024-07-23] MEDS ORDERED: DEXTROSE 50%-WATER 50 ML DISP.SYRIN IV PRN (10:00)
[2024-07-23] MEDS ORDERED: INSULIN humuLIN R 100 UNIT/ML 3ML SQ SCH (11:30)
--- NOTE | 2024-07-23 11:50 | PR ---
PROCEDURES: * Left heart catheterization. * Selective diagnostic right and left coronary arteriogram. * Multiple vein graft angiogram. * Right radial artery bypass graft angiogram. * LI angiogram. * Conscious sedation for 60 minutes. * Selective right and left renal artery angiogram. INDICATIONS: * Severe coronary artery disease. * Status post remote coronary artery bypass graft surgery. * Status post remote stent placement in the right radial artery bypass graft to the PLVB. * Recurrent angina. * Abnormal Cardiolite. * Resistant multidrug hypertension. COMPLICATIONS: None. TOTAL CONTRAST: Total count is approximately 80 mL. APPROACH: Right common femoral artery approach utilizing ultrasound guidance for access. DESCRIPTION OF PROCEDURE: The patient was taken to the cardiac catheterization lab after the appropriate operative consents were signed. She was prepped and draped in the usual fashion. After conscious sedation was administered, the right femoral artery region was infiltrated with 2% Xylocaine without epinephrine. Ultrasound guidance was utilized and the right common femoral artery was accessed utilizing a micropuncture needle. Wire was advanced and exchanged for a 0.035 wire and a 6-Slovak sheath was advanced in a retrograde fashion by a modified Seldinger technique. An FL4 catheter was advanced over an indwelling wire and selected to be engaged in the ostium of the left main. Imaging was obtained identifying critical stenosis of the left main at 99%. The left main bifurcated in the LAD and circumflex. Circumflex coronary artery was 100% occluded in its proximal portion. The distal circumflex and marginal branches were not visualized by [place] injection. The LAD had critical disease throughout its ostial to proximal segment involving the takeoff of the diagonal. This was rated at 99-100% with minimal antegrade flow. The [place] distal LAD was not visualized adequately by [place] injections. The catheter was withdrawn and an FR4 6-Slovak catheter was advanced and placed in the left ventricular cavity. Left ventricular end-diastolic pressure measurement was obtained. The patient had moderate aortic stenosis by echocardiography; however, pullback revealed less than 10 mm gradient across the aortic valve. The catheter was then engaged in the ostium of the right coronary artery, which was imaged in multiplane. This was 100% occluded in its proximal portion and had ____ collaterals to the distal portion with severe diffuse disease. The PLVB was 100% occluded. The PDA had minimal flow. The catheter was then withdrawn and engaged in the radial artery bypass graft, which was utilized as a free vessel supplying the posterior left ventricular branch. This vessel was patent and had adequate flow to the PLVB branch. There was a stent in the proximal portion of that radial artery that was widely patent. This was deployed in 04/2016. The catheter was then engaged in the sequential saphenous vein graft to diagonal and LAD. This was viewed in multiplane identifying patent graft and patent distal vessels after the anastomosis with good flow. The catheter was then engaged in the left internal mammary artery. This was imaged in multiplane supplying only a branch with adequate flow. Given the patient's significant hypertension despite multiple medications, I elected to image the renal arteries. The catheter was withdrawn, selected and engaged in the right renal and left renal arteries, which were imaged. The right renal artery had tandem 40% stenotic lesions with brisk flow to the renal tissue. The left had a 40% calcified stenotic tubular lesion; however, adequate flow was identified. At this point, the procedure was completed, Perclose was utilized with good hemostasis. The patient tolerated the procedure well and left the cardiac catheterization lab in stable condition. FINAL IMPRESSION: * Severe [place] 3-vessel coronary artery disease. * Patent 4 grafts, LI to the OM, sequential saphenous vein graft to the diagonal and LAD, radial artery bypass graft to the PLVB. * Patent stent in the proximal radial artery bypass graft to the PLVB, which was deployed in 04/2016. * Mild aortic stenosis with less than 10 mm gradient across the valve. * Preserved LV systolic function with noninvasive studies. 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 PLAN: Continue medical management. TID: [id number] RECEIPT: [id number]
== END 2024-07-23 16:24 ==
LOC: DAH 06:40
PROVIDERS: ATTEND Internal Medicine Cardiovascular Disease
DX: R94.39 Abnormal result of other cardiovascular function study (principal); I50.32 Chronic diastolic (congestive) heart failure; I25.118 Atherosclerotic heart disease of native coronary artery with other forms of angina pectoris; I12.9 Hypertensive chronic kidney disease with stage 1 through stage 4 chronic kidney disease, or unspecified chronic kidney disease; E11.22 Type 2 diabetes mellitus with diabetic chronic kidney disease; D63.1 Anemia in chronic kidney disease; N18.2 Chronic kidney disease, stage 2 (mild); I48.91 Unspecified atrial fibrillation; I70.1 Atherosclerosis of renal artery; I25.2 Old myocardial infarction; E78.5 Hyperlipidemia, unspecified; G47.33 Obstructive sleep apnea (adult) (pediatric); Z99.89 Dependence on other enabling machines and devices; Z95.1 Presence of aortocoronary bypass graft; E66.9 Obesity, unspecified; Z88.0 Allergy status to penicillin; Z88.6 Allergy status to analgesic agent; Z79.01 Long term (current) use of anticoagulants; Z79.899 Other long term (current) drug therapy
CPT/HCPCS: 80048; 83880; 85025; 85610; 85730; 81001; 36415; 71045; 93005; 93459; 36252; 82948; C1894 ×2; C1760; J3010; J3490 ×3; J0360; J0461; J2250 ×2; J1644; Q9967; A4215; A4335; A4222; A4221; A4663; A4216; A4606; Q9965; A4520; A4223 ×3; A4554; 99156; 99157

== ENCOUNTER 2024-08-09 00:29 | Inpatient (IN) | payer OTHER ==
[~2024-08-09] VITALS: Ht 177.8 cm; Wt 78.2 kg
--- NOTE | 2024-08-09 01:22 | ERN ---
General Chief Complaint: Abdominal Pain Stated Complaint: EPIGASTRIC, RUQ ABD PAIN, N/V Time Seen by MD: 00:40 Source: patient History of Present Illness Initial Comments Patient is a 68-year-old female who was in the process of getting evaluated for a cholecystectomy when she started experiencing severe midepigastric pain nausea and vomiting 8 hours ago. She states that this is the pain that she gets when her gallbladder is inflamed. No fevers or chills no difficulty urinating or having bowel movements. The patient is in so much pain and so twitchy that every place I examine her abdomen causes her to spasm and flex her stomach muscles. Allergies: Coded Allergies: Captopril (Unverified Allergy, ANAPHYLAXIS, 03/07/12) Penicillin V (Unverified Allergy, SWELLING, 03/07/12) tramadol (Unverified Adverse Reaction, Severe, VIOLENT HALLUCINATIONS, 03/07/12) Home Meds Active Scripts Mirtazapine (Mirtazapine) 45 Mg Tablet, 45 MG PO HS, #90 TAB Prov:CHI ALFONSO MD 04/09/23 Gabapentin (Gabapentin) 100 Mg Capsule, 100 MG PO HS, #90 CAP Prov:CHI ALFONSO MD 04/09/23 Buspirone HCl (Buspirone HCl) 15 Mg Tablet, 15 MG PO BID for 90 Days, #180 TAB Prov:CHI ALFONSO MD 04/09/23 Reported Medications Escitalopram Oxalate (Escitalopram Oxalate) 10 Mg Tablet, 10 MG PO AM, TAB 07/21/24 Hydralazine HCl (Apresoline) 25 Mg Tab, 1 TAB PO BID 06/05/24 Rivaroxaban (Xarelto) 20 Mg Tablet, 1 TAB PO DAILY 06/05/24 Amlodipine Besylate (Amlodipine Besylate) 5 Mg Tablet, 1 TAB PO HS 06/05/24 Pravastatin Sodium (Pravastatin Sodium) 80 Mg Tablet, 80 MG PO NOON, TAB 05/04/16 Past Medical History Past Medical History: Anxiety, Depression, Diabetes-Type II, High Cholesterol, Heart Disease, Hypertension Medical History Other: BLIND, VERTIGO Past Surgical History: Hysterectomy, CABG, Bariatric Surgery Social History Social History: Negative, Lives with family Constitutional: (-) chills, (-) diaphoresis, (-) fever, (-) malaise, (-) weakness, (-) other documentation EENTM: (-) eye pain, (-) blurred vision, (-) tearing, (-) double vision, (-) ear pain, (-) ear discharge, (-) nose pain, (-) nose congestion, (-) throat pain, (-) Throat swelling, (-) mouth pain, (-) tooth pain, (-) mouth swelling, (-) other documentation Respiratory: (-) cough, (-) orthopnea, (-) short of breath, (-) stridor, (-) wheezing, (-) other documentation Cardiovascular: (-) chest pain, (-) edema, (-) palpitations, (-) syncope, (-) dyspnea on exertion, (-) other documentation Gastrointestinal/Abdominal: (+) nausea, (+) vomiting, (+) abdominal pain Musculoskeletal: (-) Neck pain, (-) back pain, (-) Flank Pain, (-) joint pain, (-) joint swelling, (-) muscle pain, (-) muscle stiffness, (-) gout, (-) other documentation Skin: (-) laceration, (-) contusion, (-) abrasion, (-) abscess, (-) rash, (-) change in color, (-) change in hair, (-) change in nails, (-) diaphoresis, (-) dryness, (-) other documentation Neuro: (-) altered mental status, (-) headache, (-) syncope, (-) paralysis, (-) numbness, (-) seizure, (-) pre-existing deficit, (-) tremors, (-) weakness, (-) dizziness, (-) slurred speech, (-) vertigo, (-) other documentation Psych: (-) depression, (-) suicidal ideation, (-) anxiety, (-) emotional problems, (-) auditory hallucinations, (-) visual hallucinations Physical Exam General Appearance: (+) moderate distress Orientation: (+) alert, (+) oriented x 3 Head/Face Trauma: No Eye: bilateral eye normal inspection, bilateral eye PERRL, bilateral eye EOMI Ear, Nose, Throat: (+) hearing grossly normal, (+) normal ENT inspection, (+) moist mucous membraine Neck: (+) normal inspection, (+) supple, (+) full range of motion, (+) no JVD Respiratory: (+) chest non-tender, (+) lungs clear, (+) well ventilated Heart: (+) regular, (+) no gallop Vascular: (+) no edema, (+) normal peripheral pulse Gastrointestinal: (+) soft, (+) bowel sound present, (+) tender, (+) riggins's sign Results Laboratory and Microbiology Lab and Micro Result Laboratory Tests Test 08/09/24 01:23 08/09/24 02:02 White Blood Count 6.8 K/uL (4.8-10.8) Red Blood Count 3.96 MIL/uL (4.00-5.50) L Hemoglobin 11.8 g/dL (12.0-16.0) L Hematocrit 35.4 % (36-48) L Mean Corpuscular Volume 89.4 fL (79-99) Mean Corpuscular Hemoglobin 29.8 pg (27.0-33.0) Mean Corpuscular Hemoglobin Concent 33.3 g/dL (32.0-36.0) Red Cell Distribution Width 15.0 % (11.0-15.5) Platelet Count 164 K/uL (130-400) Mean Platelet Volume 13.3 fL (7.5-10.5) H Immature Granulocyte % (Auto) 0.3 % (0-1) Neutrophils (%) (Auto) 90.8 % (40.0-77.0) H Lymphocytes (%) (Auto) 6.2 % (21.0-51.0) L Monocytes (%) (Auto) 2.3 % (3.0-13.0) L Eosinophils (%) (Auto) 0.1 % (0.0-8.0) Basophils (%) (Auto) 0.3 % (0.0-5.0) Neutrophils # (Auto) 6.2 K/uL (1.8-7.7) Lymphocytes # (Auto) 0.4 K/uL (1.0-4.8) L Monocytes # (Auto) 0.2 K/uL (0.1-1.0) Eosinophils # (Auto) 0.01 K/uL (0.00-0.70) Basophils # (Auto) 0.02 K/uL (0.00-0.20) Absolute Immature Granulocyte (auto 0.02 K/uL (0-1) Nucleated Red Blood Cells 0.0 % (0.0-0.19) White Cell Morphology Comment See comments Sodium Level 139 mmol/L (136-145) Potassium Level 3.9 mmol/L (3.5-5.1) Chloride Level 103 mmol/L (101-111) Carbon Dioxide Level 28 mmol/L (21-32) Blood Urea Nitrogen 24 mg/dL (7-18) H Creatinine 0.9 mg/dL (0.5-1.0) Glomerular Filtration Rate Calc 71 mL/min (>90) Random Glucose 258 mg/dL (70-105) H Total Calcium 9.6 mg/dL (8.5-10.1) Total Bilirubin 0.5 mg/dL (0.2-1.0) Direct Bilirubin 0.2 mg/dL (0.0-0.3) Aspartate Amino Transf (AST/SGOT) 71 U/L (10-37) H Alanine Aminotransferase (ALT/SGPT) 62 U/L (12-78) Alkaline Phosphatase 127 U/L (50-136) Total Protein 8.1 g/dL (6.0-8.3) Albumin 4.1 g/dL (3.5-5.0) Lipase 37 U/L (16-77) Urine Color COLORLESS (YELLOW) Urine Appearance CLEAR (CLEAR) Urine pH 6.0 (5.0-8.0) Urine Specific Emerson 1.010 (1.001-1.031) Urine Protein 100 mg/dL (NEGATIVE) H Urine Glucose (UA) 500 mg/dL (NEGATIVE) H Urine Ketones 5 mg/dL (NEGATIVE) H Urine Occult Blood SMALL (NEGATIVE) H Urine Nitrate NEGATIVE (NEGATIVE) Urine Bilirubin NEGATIVE mg/dL (NEGATIVE) Urine Urobilinogen 0.2 mg/dL (0.2-1.0) Urine Leukocyte Esterase NEGATIVE Glory/uL Urine RBC 6-10 /HPF (0-1) H Urine WBC 0-1 /HPF (0-1) Urine Squamous Epithelial Cells RARE /HPF (0-2) Urine Bacteria None /HPF (None Seen) Urine Hyaline Casts 2-5 /LPF (0-1 /LPF) H Labs Reviewed?: Yes EKG/XRAY/US/CT/MRI Ultrasound Comment [facility] [address] [place] [address] IMAGING REPORT Signed PATIENT: PROMISE AUSTIN MR#: [id number] : 1955 SEX: F AGE: 68 LOCATION: [facility] ORDER 7 STATUS: REG ER REPORT#: [id number] SERVICE 6 REASON: biliary colic ORDERING PHYSICIAN: JERSON HARRIS MD PROCEDURE: [id number] - US ABDOMINAL RUQ\LTD US ABDOMINAL RUQ\E\LTD HISTORY: Biliary colic COMPARISON: None TECHNIQUE: Right upper quadrant abdominal ultrasound study was performed. FINDINGS: Liver measures 14 cm. Pancreas is not well seen due to overlying bowel gas. Trace pericholecystic fluid is seen. Sludge and shadowing gallstones are seen in the gallbladder. Common duct measures 9 mm. Gallbladder wall is borderline in size measuring 3 mm. Right kidney measures 11 x 6 x 4 cm. No hydronephrosis is seen of the right kidney. IMPRESSION: 1. Sludge material gallstones in the gallbladder. No common duct is dilated measuring 9 mm. Tiny pericholecystic fluid is. 2. No hydronephrosis is seen. DICTATED BY: CAROLYN ROSENBERG MD DATE: 08/09/24800 ELECTRONICALLY SIGNED BY: CAROLYN ROSENBERG MD DATE: 08/09/24806 [facility] Patient in obvious abdominal pain and extremely agitated. I will treat her with Zofran Dilaudid Flexeril. I will get a complete metabolic panel and a CBC and a UA. I expect patient may need to be admitted for biliary colic. MDM: DIFFERENTIAL DIAGNOSIS: CHOLECYSTITIS, RIGHT UPPER QUADRANT PAIN, RATIONALE: TESTS CONSIDERED AND ORDERED SECONDARY TO SHARED DECISION MAKING INCLUDE: LABS, ECG AND RADIOLOGY PREVIOUS OUTSIDE RECORDS REVIEWED: OLD ER VISITS. RISK OF COMPLICATION AND/OR MORBIDITY OR MORTALITY OF PATIENT MANAGEMENT: NONE MEDICATIONS-PER MEDICATION RECONCILIATION NEED FOR HOSPITALIZATION: PATIENT DOES MEET CRITERIA FOR HOSPITALIZATION. NEED FOR EMERGENCY MAJOR/MINOR SURGERY: NO THERE ARE NO SOCIAL CONCERNS WITH THIS PATIENT. PRESCRIPTION DRUG MANAGEMENT PRESCRIPTIONS WILL INCLUDE SYMPTOMATIC CARE PATIENT'S PRIOR EXTERNAL MEDICAL RECORDS FROM OTHER ER VISITS WERE REVIEWED BY ME INDICATED. PRIOR TESTING AND RESULTS FROM PREVIOUS VISITS WERE REVIEWED. PRIOR TESTS WERE TAKEN INTO ACCOUNT WITH MEDICAL DECISION MAKING AND RESOURCE UTILIZATION, INDEPENDENT HISTORIAN/HISTORIANS WERE USED TO OBTAIN COMPLETE MEDICAL HISTORY. I INDEPENDENTLY INTERPRETED THE TEST THAT WERE PERFORMED, RESULTS WERE REVIEWED BY ME AND CONSIDERED FINDINGS ON RADIOLOGY IF ORDERED. MEDICAL MANAGEMENT AND EXAMINATION INTERPRETATION DISCUSSIONS WERE HAD BY ME WITH OTHER QUALIFIED HEALTHCARE PROFESSIONALS INDICATED FOR THE PATIENT'S CARE. REPORT GIVEN TO DR. POE PT'S SURGEON ,PATIENT WILL BE ADMITTED UNDER THE CARE OF [facility] ED Course Orders Procedure Category Date Status Time Vital Signs Per CPOE 08/09/24 Transmitted Routine 00:57 Saline Lock Iv CPOE 08/09/24 Transmitted 00:57 Cbc With Differential LAB 08/09/24 Complete 00:57 Lipase LAB 08/09/24 Complete 00:57 Urinalysis Profile LAB 08/09/24 Complete 00:57 Basic Metabolic Panel LAB 08/09/24 Complete 00:57 Lactated Ringers PHA 08/09/24 In Process 1000ml (Lactated 01:30 Cyclobenzaprine Hcl PHA 08/09/24 Complete (Cyclobenzaprine Hcl 01:30 Hydromorphone 2mg PHA 08/09/24 Complete Vial (Dilaudid 2mg Inj 02:00 Ondansetron 4mg Inj PHA 08/09/24 Complete (Zofran 4mg Inj) 02:00 Hepatic Function Panel LAB 08/09/24 Complete 00:57 Us Abdominal Ruq\Ltd US 08/09/24 Resulted 02:37 Insulin Regular, PHA 08/09/24 Complete Human 3ml (Humulin R 03:00 Hydromorphone 1 Mg PHA 08/09/24 Complete Inj (Dilaudid 1mg Inj 06:00 Drug Screen Urine LAB 08/09/24 Logged 07:41 General Surgery CONPHYSVC 08/09/24 Transmitted Consult 07:49 Current Medications Medications (Trade) Dose Ordered Sig/Stephen Route PRN Reason Start Time Stop Time Status Last Admin Dose Admin Cyclobenzaprine HCl (Cyclobenzaprine HCl) 10 mg ONCE ONCE PO 08/09/24 01:30 08/09/24 01:31 DC 08/09/24 02:22 Hydromorphone HCl (DiLAUDid 1MG INJ) 1 mg ONCE ONCE IVP 08/09/24 06:00 08/09/24 06:01 DC 08/09/24 05:43 Hydromorphone HCl (DiLAUDid 2MG INJ) 2 mg ONCE ONCE IVP 08/09/24 02:00 08/09/24 02:01 DC 08/09/24 01:47 Insulin Human Regular (humuLIN R 100 UNIT/ML 3ML) 15 unit ONCE ONCE SQ 08/09/24 03:00 08/09/24 03:01 DC 08/09/24 03:05 Lactated Ringer's (Lactated Ringers 1000ml) 1,000 ml ONCE IV 08/09/24 01:30 09/08/24 01:29 08/09/24 01:47 Ondansetron HCl (zoFRAN 4MG INJ) 4 mg ONCE ONCE IVP 08/09/24 02:00 08/09/24 02:01 DC 08/09/24 01:47 Vital Signs Date Time Temp Pulse Resp B/P (MAP) Pulse Ox O2 Delivery O2 Flow Rate FiO2 08/09/24 07:30 98.1 67 15 147/53 99 Room Air* 0 08/09/24 06:48 73 18 154/64 100 Room Air* 0 08/09/24 05:43 75 18 180/59 95 Room Air* 0 08/09/24 04:34 70 16 167/67 100 Room Air* 0 08/09/24 03:40 67 18 170/61 100 Room Air* 0 08/09/24 02:57 61 18 170/61 100 Room Air* 0 08/09/24 02:22 63 18 165/57 100 Room Air* 0 08/09/24 02:03 69 18 200/79 98 Room Air* 0 08/09/24 00:31 98.1 68 17 206/70 99 Room Air 0 DX & DISP Disposition: Inpatient Decision to Admit Time: 08:28 Departure Impression: Primary Impression: Cholecystitis Condition: Stable Referrals: JIMENA BEARD MD (PCP) JERSON HARRIS MD August 09, 2024 01:22 AMERICA RO MD August 09, 2024 07:55
[2024-08-09] MEDS: LACTATED RINGERS 1000ML IV SCH (01:47)
[2024-08-09] MEDS: ondanSETRON 4MG INJ IVP ONE (01:47)
[2024-08-09] MEDS: hydroMORPHone 2 MG VIAL (2MG/ML) IVP ONE (01:47)
[2024-08-09 01:51] LABS: BASOPHILS # (AUTO) 0.02 K/uL (0.00-0.20); BASOPHILS % (AUTO) 0.3 % (0.0-5.0); EOSINOPHILS # (AUTO) 0.01 K/uL (0.00-0.70); EOSINOPHILS % (AUTO) 0.1 % (0.0-8.0); HEMATOCRIT 35.4 % (36-48); IMMATURE GRANULOCYTE ABSOLUTE 0.02 K/uL (0-1); LYMPHOCYTES # (AUTO) 0.4 K/uL (1.0-4.8); LYMPHOCYTES % (AUTO) 6.2 % (21.0-51.0); MEAN CORPUSCULAR HEMOGLOBIN 29.8 pg (27.0-33.0); MEAN CORPUSCULAR HGB CONC 33.3 g/dL (32.0-36.0); MEAN CORPUSCULAR VOLUME 89.4 fL (79-99); MONOCYTES # (AUTO) 0.2 K/uL (0.1-1.0); MONOCYTES % (AUTO) 2.3 % (3.0-13.0); NEUTROPHILS # (AUTO) 6.2 K/uL (1.8-7.7); NEUTROPHILS % (AUTO) 90.8 % (40.0-77.0); PLATELET COUNT (AUTO) 164 K/uL (130-400); RED BLOOD CELL COUNT(AUTO) 3.96 MIL/uL (4.00-5.50); WHITE BLOOD COUNT (AUTO) 6.8 K/uL (4.8-10.8)
[2024-08-09 02:01] LABS: CREATININE 0.9 mg/dL (0.5-1.0); POTASSIUM 3.9 mmol/L (3.5-5.1)
[2024-08-09 02:05] LABS: ALBUMIN 4.1 g/dL (3.5-5.0); BILIRUBIN,DIRECT 0.2 mg/dL (0.0-0.3); BILIRUBIN,TOTAL 0.5 mg/dL (0.2-1.0); TOTAL PROTEIN, SERUM 8.1 g/dL (6.0-8.3)
[2024-08-09 02:10] LABS: APPEARANCE,URINE CLEAR (CLEAR); BILIRUBIN,URINE NEGATIVE (NEGATIVE); COLOR,URINE COLORLESS (YELLOW); GLUCOSE, URINE (UA) 500 mg/dL (NEGATIVE); KETONES,URINE 5 mg/dL (NEGATIVE); LEUKOCYTE ESTERASE ,URINE NEGATIVE Leu/uL (NEGATIVE); NITRATE,URINE NEGATIVE (NEGATIVE); OCCULT BLOOD,URINE SMALL (NEGATIVE); PROTEIN,URINE 100 mg/dL (NEGATIVE); UROBILINOGEN,URINE 0.2 mg/dL (0.2-1.0)
[2024-08-09 02:11] LABS: ADD UA MICROSCOPIC YES
[2024-08-09 02:12] LABS: SQUAMOUS EPITHELIAL CELL,UR RARE /HPF (0-2); WBC,URINE 0-1 /HPF (0-1)
[2024-08-09] MEDS: CYCLOBENZAPRINE HCL 10 MG TABLET PO ONE (02:22)
[2024-08-09] MEDS: INSULIN humuLIN R 100 UNIT/ML 3ML SQ ONE (03:05)
[2024-08-09] MEDS: hydroMORPHone 1 MG INJ IVP ONE (05:43)
--- NOTE | 2024-08-09 08:07 | HMCIMG ---
US ABDOMINAL RUQ\E\LTD HISTORY: Biliary colic COMPARISON: None TECHNIQUE: Right upper quadrant abdominal ultrasound study was performed. FINDINGS: Liver measures 14 cm. Pancreas is not well seen due to overlying bowel gas. Trace pericholecystic fluid is seen. Sludge and shadowing gallstones are seen in the gallbladder. Common duct measures 9 mm. Gallbladder wall is borderline in size measuring 3 mm. Right kidney measures 11 x 6 x 4 cm. No hydronephrosis is seen of the right kidney. IMPRESSION: 1. Sludge material gallstones in the gallbladder. No common duct is dilated measuring 9 mm. Tiny pericholecystic fluid is. 2. No hydronephrosis is seen.
--- NOTE | 2024-08-09 09:57 | HP ---
[facility] HISTORY & PHYSICAL Date Patient Seen: August 09, 2024 Time of Visit: 09:54 Supervising Physician: Dr. Palencia Primary Care Physician: Dr. Ryley Worley Outpatient Specialists: [ ] Inpatient Consults: [ ] PROBLEM LIST: Hypertensive emergency POA. Acute cholecystitis with presence of sludge material and tiny pericholecystic fluid POA. CAD with remote CABG Hyperlipidemia. Hypertension. Anxiety. Depression. Legally blind. HPI: This is a 68-year-old female with a history of HTN, HDL, anxiety, depression, legally blind and vertigo. She also has a history of gallbladder disease and was being worked up in the outpatient setting undergo cholecystectomy at a later date by Dr. Villagran. Unfortunately, the patient began experiencing severe mid epigastric pain with associated nausea and vomiting approximately 8 hours prior to her admission reason why she decided to come into the emergency department for further evaluation and management of her condition. Upon initial workup in the emergency department, initial vital signs did not show any febrile events. Blood pressure reading was significantly elevated on entry 206/70 and is on room air. Laboratory data showed no significant changes of concern. Urinalysis was not concerning for urinary tract infection. Imaging showed a abdominal ultrasound that was significant for sled material in the gallbladder, common duct measuring 9 mm and tiny pericholecystic fluid. There was no hydronephrosis seen. The patient was medicated overnight receiving Dilaudid for a total of 3 mg and was now very obtunded during my visit and minimally interactive. Per the staff nurse, no acute events since admission. The general surgeon was contacted by the ER physician. No other complaint. PAST MEDICAL HX: see above PAST SURGICAL HX: noncontributory SOCIAL HISTORY: No tobacco, ETOH, or illicit drug use Coded Allergies: Captopril (Unverified Allergy, ANAPHYLAXIS, 03/07/12) Penicillin V (Unverified Allergy, SWELLING, 03/07/12) tramadol (Unverified Adverse Reaction, Severe, VIOLENT HALLUCINATIONS, 03/07/12) REVIEW OF SYSTEMS: 12 point ROS reviewed with patient. Pertinent positives mentioned above. Otherwise negative. PHYSICAL EXAM: GENERAL: Alert, weak, awake oriented x 3 HEENT: EOMI, Sclera non icteric, moist mucosa NECK: Supple, no JVD, trachea midline LUNGS: Clear breath sounds bilaterally. No wheezes HEART: Regular rate and rhythm. Normal S1 and S2, without murmurs ABD: Abdomen soft, RUQ tender. Bowel sounds present EXT: No clubbing cyanosis or edema NEURO: Alert and oriented to person, follows commands Vital Signs (last 8hr) Date Time Temp Pulse Resp B/P (MAP) Pulse Ox O2 Delivery O2 Flow Rate FiO2 08/09/24 07:30 98.1 67 15 147/53 99 Room Air* 0 08/09/24 06:48 73 18 154/64 100 Room Air* 0 08/09/24 05:43 75 18 180/59 95 Room Air* 0 08/09/24 04:34 70 16 167/67 100 Room Air* 0 08/09/24 03:40 67 18 170/61 100 Room Air* 0 08/09/24 02:57 61 18 170/61 100 Room Air* 0 08/09/24 02:22 63 18 165/57 100 Room Air* 0 08/09/24 02:03 69 18 200/79 98 Room Air* 0 21 LABS: Hematology Labs: Test 08/09/24 01:23 Range/Units White Blood Count 6.8 4.8-10.8 K/uL Red Blood Count 3.96 L 4.00-5.50 MIL/uL Hemoglobin 11.8 L 12.0-16.0 g/dL Hematocrit 35.4 L 36-48 % Mean Corpuscular Volume 89.4 79-99 fL Mean Corpuscular Hemoglobin 29.8 27.0-33.0 pg Mean Corpuscular Hemoglobin Concent 33.3 32.0-36.0 g/dL Red Cell Distribution Width 15.0 11.0-15.5 % Platelet Count 164 130-400 K/uL Mean Platelet Volume 13.3 H 7.5-10.5 fL Immature Granulocyte % (Auto) 0.3 0-1 % Neutrophils (%) (Auto) 90.8 H 40.0-77.0 % Lymphocytes (%) (Auto) 6.2 L 21.0-51.0 % Monocytes (%) (Auto) 2.3 L 3.0-13.0 % Eosinophils (%) (Auto) 0.1 0.0-8.0 % Basophils (%) (Auto) 0.3 0.0-5.0 % Neutrophils # (Auto) 6.2 1.8-7.7 K/uL Lymphocytes # (Auto) 0.4 L 1.0-4.8 K/uL Monocytes # (Auto) 0.2 0.1-1.0 K/uL Eosinophils # (Auto) 0.01 0.00-0.70 K/uL Basophils # (Auto) 0.02 0.00-0.20 K/uL Absolute Immature Granulocyte (auto 0.02 0-1 K/uL Nucleated Red Blood Cells 0.0 0.0-0.19 % White Cell Morphology Comment See comments Chemistry Labs: Test 08/09/24 01:23 Range/Units Sodium Level 139 136-145 mmol/L Potassium Level 3.9 3.5-5.1 mmol/L Chloride Level 103 101-111 mmol/L Carbon Dioxide Level 28 21-32 mmol/L Blood Urea Nitrogen 24 H 7-18 mg/dL Creatinine 0.9 0.5-1.0 mg/dL Glomerular Filtration Rate Calc 71 >90 mL/min Random Glucose 258 H 70-105 mg/dL Total Calcium 9.6 8.5-10.1 mg/dL Total Bilirubin 0.5 0.2-1.0 mg/dL Direct Bilirubin 0.2 0.0-0.3 mg/dL Aspartate Amino Transf (AST/SGOT) 71 H 10-37 U/L Alanine Aminotransferase (ALT/SGPT) 62 12-78 U/L Alkaline Phosphatase 127 50-136 U/L Total Protein 8.1 6.0-8.3 g/dL Albumin 4.1 3.5-5.0 g/dL Lipase 37 16-77 U/L DIAGNOSTICS / RADIOLOGY RESULTS: [ ] PLAN The patient was admitted to Med/surg unit. General surgery has been consulted. The patient will remain NPO in the meantime. I am going to review and reconcile medication list once this becomes available and the patient is able to tolerate oral feedings. Going to put the patient on IV NS at 100 cc/hour. We will manage her pain with morphine. We will continue provide general supportive care, GI and DVT prophylaxis. Further orders per attending MD and hospital course. NEURO: Minimize central acting medications as possible. Maintain fall precautions, adequate lighting during the day PULMONARY: Supplemental 02 as needed. Maintain aspiration precautions at all times CARDIOVASCULAR: Follow hemodynamics. Vital signs per facility protocol GI & NUTRITION: Continue with nutritional support. Continue stool softeners and laxatives as needed. KIDNEYS & ELECTROLYTES: Strict monitoring of intake, output and overall fluid balance. Avoid nephrotoxic medications to the extent possible. Medications to be dosed according to renal function. Monitor electrolytes and replace as needed ENDOCRINE: Maintain blood glucose between 100-180 at all times. Hypoglycemia protocol in place INFECTIOUS DISEASE: Trend temperature, WBC and procalcitonin level Follow cultures, deescalate antibiotics as soon as possible. Panculture if new onset fever ONCOLOGY/HEMATOLOGY/COAGULATION: Monitor for s/s of bleeding Monitor hemoglobin, coagulation studies as needed SKIN: Pressure ulcer prevention per facility protocol Specialty mattress ORTHO/REHAB: Continue PT/OT Prophylaxis: Continue GI and DVT prophylaxis Code Status: Full Resuscitation Disposition: Med/Surg Other: Total patient care time exceeds 35 minutes excluding all procedures. BIMAL ARTHUR NP August 09, 2024 09:57
[2024-08-09] MEDS ORDERED: hydrALAZine 20MG/ML VIAL IV PRN (10:00)
[2024-08-09] MEDS ORDERED: acetaMINOPHEN 650 MG SUPPOSITORY RC PRN (10:00)
[2024-08-09] MEDS ORDERED: GLUCAGON 1MG KIT 1 MG ML IM PRN (10:00)
[2024-08-09] MEDS: DEXTROSE 50%-WATER 50 ML DISP.SYRIN IV PRN (10:09)
--- NOTE | 2024-08-09 10:16 | NUR ---
PT WAS FOUND VERY SLEEPY.SHE RESPONDED TO QUESTIONS SLOWLY AND OBEYED COMMANDS. BG CHECK 24. D50 ADMINISTERED,PT IS MORE RESPONSIVE NOW.
--- NOTE | 2024-08-09 10:38 | NUR ---
REPEAT BG 118
[2024-08-09 11:06] LABS: AMPHET/METH SCREEN,URINE NEGATIVE (NEGATIVE); BARBITURATE SCREEN, URINE NEGATIVE (NEGATIVE); BENZODIAZEPINES SCREEN,URINE NEGATIVE (NEGATIVE); CANNABINOID SCREEN,URINE NEGATIVE (NEGATIVE); COCAINE SCREEN,URINE NEGATIVE (NEGATIVE); OPIATE SCREEN,URINE NEGATIVE (NEGATIVE); PHENCYCLIDINE SCREEN,URINE NEGATIVE (NEGATIVE)
[2024-08-09] MEDS: INSULIN humuLIN R 100 UNIT/ML 3ML SQ SCH (11:30)
[2024-08-09] MEDS: cefTRIAXone 1G VIAL IVP SCH (12:05)
[2024-08-09] MEDS: 0.9%NACL 1000ML 1,000 ML IV SCH (12:05)
--- NOTE | 2024-08-09 12:51 | NUR ---
REPORT GIVEN TO [facility]
[2024-08-09] MEDS: hydroMORPHone 1 MG INJ IVP PRN (12:57)
[2024-08-09 13:44] VITALS: O2SAT 100
--- NOTE | 2024-08-09 13:44 | NUR ---
PATIENT IS BLIND. BOTH EYES ARE OPAQUE. Addendum: 08/09/24 at 1823 by SOFIA PRUETT RN RN Amended: Links added.
--- NOTE | 2024-08-09 13:45 | NUR ---
PT TRANSPORTED TO [facility]
[2024-08-09 14:00] VITALS: BP 165/67; PULSE 74; RESP 18; TEMP 97.6
[2024-08-09] MEDS: ondanSETRON 4MG INJ IVP PRN (14:46)
[2024-08-09] MEDS: morPHINE 2 MG SYG IVP PRN (14:46)
[2024-08-09 16:18] VITALS: BP 163/63; PULSE 68
[2024-08-09] MEDS: DEXTROSE 5 % AND 0.9 % NACL 1,000 ML IV SCH (16:48)
--- NOTE | 2024-08-09 18:04 | NUR ---
BLIND PATIENT IS BLIND BILATERALLY. PATIENT WAS ASKED IF ANY ADDITIONAL RESOURCES WERE REQUIRED DUE TO HER LIMITATIONS TO WHICH THE PATIENT DECLINED ANY NEED. PATIENTS WAS PRESENT AT TIME OF ASSESSMENT AND EDUCATION.
[2024-08-09 19:00] VITALS: BP 151/65; PULSE 73; RESP 20; TEMP 98.7
--- NOTE | 2024-08-09 19:36 | NUR ---
MEDICATIONS INFORMED PATIENTS TO BRING IN HOME MEDS TO BE RECONCILED. AND PT AWARE. STATED TO BRING MEDS IN 08/10/24.
[2024-08-09 20:00] VITALS: O2SAT 92
[2024-08-10] VITALS (8 sets, daily range): BP systolic 107–156; BP diastolic 40–69; PULSE 72–91; RESP 17–20; TEMP 97.6–99.3; O2SAT 90
[2024-08-10 04:26] LABS: BASOPHILS # (AUTO) 0.01 K/uL (0.00-0.20); BASOPHILS % (AUTO) 0.1 % (0.0-5.0); HEMATOCRIT 34.3 % (36-48); IMMATURE GRANULOCYTE ABSOLUTE 0.28 K/uL (0-1); LYMPHOCYTES # (AUTO) 0.4 K/uL (1.0-4.8); LYMPHOCYTES % (AUTO) 2.9 % (21.0-51.0); MEAN CORPUSCULAR HEMOGLOBIN 29.5 pg (27.0-33.0); MEAN CORPUSCULAR HGB CONC 30.9 g/dL (32.0-36.0); MEAN CORPUSCULAR VOLUME 95.5 fL (79-99); MONOCYTES # (AUTO) 0.9 K/uL (0.1-1.0); MONOCYTES % (AUTO) 6.5 % (3.0-13.0); NEUTROPHILS # (AUTO) 12.3 K/uL (1.8-7.7); NEUTROPHILS % (AUTO) 88.5 % (40.0-77.0); PLATELET COUNT (AUTO) 138 K/uL (130-400); RED BLOOD CELL COUNT(AUTO) 3.59 MIL/uL (4.00-5.50); RED CELL DISTRIBUTION WIDTH 15.4 % (11.0-15.5); WHITE BLOOD COUNT (AUTO) 13.9 K/uL (4.8-10.8)
[2024-08-10 04:57] LABS: CREATININE 0.9 mg/dL (0.5-1.0); MAGNESIUM 1.6 mg/dL (1.80-2.40); POTASSIUM 3.8 mmol/L (3.5-5.1)
[2024-08-10] MEDS: MAGNESIUM 2GM PREMIX 50ML 50 ML IV PRN (09:20)
--- NOTE | 2024-08-10 10:19 | PN ---
[facility] PROGRESS NOTE Date Patient Seen: August 10, 2024 Time of Visit: 10:19 Supervising Physician: [Dr. Palencia] Primary Care Physician: Dr. Ryley Worley Outpatient Specialists: [ ] Inpatient Consults: [ ] PROBLEM LIST: Hypertensive emergency POA, resolved Acute cholecystitis,POA. CAD with remote CABG Hyperlipidemia. Hypertension. Anxiety. Depression. Legally blind. INTERVAL HISTORY: [Patient was evaluated at bedside. She complains of moderate abdominal pain is currently on adequate analgesic medication. WBCs double overnight despite IV antibiotics. Will adjust to Levaquin and Flagyl. Her blood pressure and much improved from admission. Surgery is mellitus with the patient and she is pending laparoscopic cholecystectomy tomorrow. Currently NPO per general surgery recommendation.] REVIEW OF SYSTEMS: 12 point ROS reviewed with patient. Pertinent positives mentioned above. Otherwise negative. PHYSICAL EXAM: GENERAL: Alert, weak, awake oriented x 3 HEENT: EOMI, Sclera non icteric, moist mucosa NECK: Supple, no JVD, trachea midline LUNGS: Clear breath sounds bilaterally. No wheezes HEART: Regular rate and rhythm. Normal S1 and S2, without murmurs ABD: Abdomen soft, RUQ tender. Bowel sounds present EXT: No clubbing cyanosis or edema NEURO: Alert and oriented to person, follows commands Vital Signs (last 8hr) Date Time Temp Pulse Resp B/P (MAP) Pulse Ox O2 Delivery O2 Flow Rate FiO2 08/10/24 08:35 90 Room Air* 0 21 08/10/24 07:58 99.0 83 17 138/57 90 Room Air 08/10/24 04:00 99.3 78 20 151/69 93 Room Air LABS: Hematology Labs: Test 08/10/24 03:40 08/09/24 01:23 Range/Units White Blood Count 13.9 H 4.8-10.8 K/uL Red Blood Count 3.59 L 4.00-5.50 MIL/uL Hemoglobin 10.6 L 12.0-16.0 g/dL Hematocrit 34.3 L 36-48 % Mean Corpuscular Volume 95.5 79-99 fL Mean Corpuscular Hemoglobin 29.5 27.0-33.0 pg Mean Corpuscular Hemoglobin Concent 30.9 L 32.0-36.0 g/dL Red Cell Distribution Width 15.4 11.0-15.5 % Platelet Count 138 130-400 K/uL Mean Platelet Volume 13.3 H 7.5-10.5 fL Immature Granulocyte % (Auto) 2.0 H 0-1 % Neutrophils (%) (Auto) 88.5 H 40.0-77.0 % Lymphocytes (%) (Auto) 2.9 L 21.0-51.0 % Monocytes (%) (Auto) 6.5 3.0-13.0 % Eosinophils (%) (Auto) 0.0 0.0-8.0 % Basophils (%) (Auto) 0.1 0.0-5.0 % Neutrophils # (Auto) 12.3 H 1.8-7.7 K/uL Lymphocytes # (Auto) 0.4 L 1.0-4.8 K/uL Monocytes # (Auto) 0.9 0.1-1.0 K/uL Eosinophils # (Auto) 0.00 0.00-0.70 K/uL Basophils # (Auto) 0.01 0.00-0.20 K/uL Absolute Immature Granulocyte (auto 0.28 0-1 K/uL Nucleated Red Blood Cells 0.0 0.0-0.19 % Red Blood Cell Morphology See comments White Cell Morphology Comment See comments Chemistry Labs: Test 08/10/24 05:56 08/10/24 03:40 08/09/24 01:23 Range/Units Whole Blood Glucose 155 H 70-110 MG/DL Sodium Level 141 136-145 mmol/L Potassium Level 3.8 3.5-5.1 mmol/L Chloride Level 106 101-111 mmol/L Carbon Dioxide Level 29 21-32 mmol/L Blood Urea Nitrogen 19 H 7-18 mg/dL Creatinine 0.9 0.5-1.0 mg/dL Glomerular Filtration Rate Calc 71 >90 mL/min Random Glucose 170 H 70-105 mg/dL Total Calcium 8.6 8.5-10.1 mg/dL Magnesium Level 1.60 L 1.80-2.40 mg/dL Total Bilirubin 0.5 0.2-1.0 mg/dL Direct Bilirubin 0.2 0.0-0.3 mg/dL Aspartate Amino Transf (AST/SGOT) 71 H 10-37 U/L Alanine Aminotransferase (ALT/SGPT) 62 12-78 U/L Alkaline Phosphatase 127 50-136 U/L Total Protein 8.1 6.0-8.3 g/dL Albumin 4.1 3.5-5.0 g/dL Lipase 37 16-77 U/L DIAGNOSTICS / RADIOLOGY RESULTS: [ ] PLAN Continue IV antibiotics Continue IV fluids NPO per General surgery Pending laparoscopic cholecystectomy Present management per hospital course Disposition TBD NEURO: Minimize central acting medications as possible. Maintain fall precautions, adequate lighting during the day PULMONARY: Supplemental 02 as needed. Maintain aspiration precautions at all times CARDIOVASCULAR: Follow hemodynamics. Vital signs per facility protocol GI & NUTRITION: Continue with nutritional support. Continue stool softeners and laxatives as needed. KIDNEYS & ELECTROLYTES: Strict monitoring of intake, output and overall fluid balance. Avoid nephrotoxic medications to the extent possible. Medications to be dosed according to renal function. Monitor electrolytes and replace as needed ENDOCRINE: Maintain blood glucose between 100-180 at all times. Hypoglycemia protocol in place INFECTIOUS DISEASE: Trend temperature, WBC and procalcitonin level Follow cultures, deescalate antibiotics as soon as possible. Panculture if new onset fever ONCOLOGY/HEMATOLOGY/COAGULATION: Monitor for s/s of bleeding Monitor hemoglobin, coagulation studies as needed SKIN: Pressure ulcer prevention per facility protocol Specialty mattress ORTHO/REHAB: Continue PT/OT Prophylaxis: Continue GI and DVT prophylaxis Code Status: Full Resuscitation Disposition: Med/Surg Other: Total patient care time exceeds 35 minutes excluding all procedures. JOSÉ MIGUEL HENRY August 10, 2024 10:19
--- NOTE | 2024-08-10 10:38 | CONS ---
GENERAL SURGERY CONSULTATION NOTE Date/Time Patient Seen: [August 10, 2024 ] Requesting Physician: [ [facility] service] Reason for Consultation: [ Cholecystitis] History of Present Illness: [ Patient had seen me for the problems that she has been having with a gallstones. Patient was actually scheduled for a laparoscopic cholecystectomy unfortunately over the last 24-48 hours patient has started developing some abdominal pain. Pain got worse. Pain was localized in right upper quadrant. Associated with the pain with some nausea. Patient denies any emesis. Patient denies any melena, hematochezia, hematuria. Associated with the pain was also some subjective fevers. Patient came in the emergency room and an ultrasound was done. I personally reviewed the ultrasound. Patient appears to have a distended gallbladder with gallstones and some pericholecystic fluid. Patient was given some IV antibiotics and admitted to the hospital for me to evaluate for possible cholecystectomy during this hospitalization.] Past Medical History: [ HTN, HDL, anxiety, depression, legally blind and vertigo. ] Past Surgical History: [ Coronary artery bypass graft] Family History: [Noncontributory ] Social History: [ Patient denies any illicit drug use] Habits: [Never] smoker. [Denies] alcohol consumption. [Denies] illicit drug use Current Medications Medications (Trade) Dose Ordered Sig/Stephen Route Start Time Stop Time Status Last Admin Dose Admin Ceftriaxone Sodium (ROCEphine 1G INJ) 1 gm Q24H IVP 08/09/24 10:00 08/10/24 10:18 DC 08/10/24 08:57 1 GM Dextrose/Sodium Chloride 1,000 ml @ 100 mls/hr Q10H IV 08/09/24 16:30 09/08/24 16:29 08/10/24 02:35 100 MLS/HR Insulin Human Regular (humuLIN R 100 UNIT/ML 3ML) INSULIN SLIDING SCAL... ACHS SQ 08/09/24 11:30 09/08/24 11:29 Lactated Ringer's (Lactated Ringers 1000ml) 1,000 ml ONCE IV 08/09/24 01:30 09/08/24 01:29 08/09/24 01:47 1,000 ML Levofloxacin/ Dextrose (LEvaquIN 750 MG/ D5W 150 ML) 750 mg Q24H IV 08/10/24 10:30 08/20/24 10:29 UNV Metronidazole/ Sodium Chloride (flaGYL) 500 mg Q8H IV 08/10/24 10:30 08/20/24 10:29 Sodium Chloride 1,000 ml @ 100 mls/hr Q10H IV 08/09/24 10:00 08/09/24 16:24 DC 08/09/24 12:05 100 MLS/HR Review of Systems: Fourteen point review of systems negative except what is mentioned in history of present illness Physical Examination: PHYSICAL EXAM EYES: Patient is blind HENT: Oral nasal mucosa pink and moist NECK: Supple, . LUNGS: Unlabored CARDIOVASCULAR: Regular rate and rhythm ABDOMEN: Tender to palpation right upper quadrant. Positive Bhagat's sign. CENTRAL NERVOUS SYSTEM: Awake, alert, oriented x3 SKIN: No rashes, no swelling. LYMPHATICS: No peripheral lymphadenopathy MUSCULOSKELETAL: Motor and sensory function grossly intact EXTREMITIES: No cyanosis or clubbing Vital Signs (last 8hr) Date Time Temp Pulse Resp B/P (MAP) Pulse Ox O2 Delivery O2 Flow Rate FiO2 08/10/24 08:35 90 Room Air* 0 21 08/10/24 07:58 99.0 83 17 138/57 90 Room Air 08/10/24 04:00 99.3 78 20 151/69 93 Room Air Laboratory: [ ] Hematology Labs: Test 08/10/24 03:40 08/09/24 01:23 Range/Units White Blood Count 13.9 H 4.8-10.8 K/uL Red Blood Count 3.59 L 4.00-5.50 MIL/uL Hemoglobin 10.6 L 12.0-16.0 g/dL Hematocrit 34.3 L 36-48 % Mean Corpuscular Volume 95.5 79-99 fL Mean Corpuscular Hemoglobin 29.5 27.0-33.0 pg Mean Corpuscular Hemoglobin Concent 30.9 L 32.0-36.0 g/dL Red Cell Distribution Width 15.4 11.0-15.5 % Platelet Count 138 130-400 K/uL Mean Platelet Volume 13.3 H 7.5-10.5 fL Immature Granulocyte % (Auto) 2.0 H 0-1 % Neutrophils (%) (Auto) 88.5 H 40.0-77.0 % Lymphocytes (%) (Auto) 2.9 L 21.0-51.0 % Monocytes (%) (Auto) 6.5 3.0-13.0 % Eosinophils (%) (Auto) 0.0 0.0-8.0 % Basophils (%) (Auto) 0.1 0.0-5.0 % Neutrophils # (Auto) 12.3 H 1.8-7.7 K/uL Lymphocytes # (Auto) 0.4 L 1.0-4.8 K/uL Monocytes # (Auto) 0.9 0.1-1.0 K/uL Eosinophils # (Auto) 0.00 0.00-0.70 K/uL Basophils # (Auto) 0.01 0.00-0.20 K/uL Absolute Immature Granulocyte (auto 0.28 0-1 K/uL Nucleated Red Blood Cells 0.0 0.0-0.19 % Red Blood Cell Morphology See comments White Cell Morphology Comment See comments Chemistry Labs: Test 08/10/24 05:56 08/10/24 03:40 08/09/24 01:23 Range/Units Whole Blood Glucose 155 H 70-110 MG/DL Sodium Level 141 136-145 mmol/L Potassium Level 3.8 3.5-5.1 mmol/L Chloride Level 106 101-111 mmol/L Carbon Dioxide Level 29 21-32 mmol/L Blood Urea Nitrogen 19 H 7-18 mg/dL Creatinine 0.9 0.5-1.0 mg/dL Glomerular Filtration Rate Calc 71 >90 mL/min Random Glucose 170 H 70-105 mg/dL Total Calcium 8.6 8.5-10.1 mg/dL Magnesium Level 1.60 L 1.80-2.40 mg/dL Total Bilirubin 0.5 0.2-1.0 mg/dL Direct Bilirubin 0.2 0.0-0.3 mg/dL Aspartate Amino Transf (AST/SGOT) 71 H 10-37 U/L Alanine Aminotransferase (ALT/SGPT) 62 12-78 U/L Alkaline Phosphatase 127 50-136 U/L Total Protein 8.1 6.0-8.3 g/dL Albumin 4.1 3.5-5.0 g/dL Lipase 37 16-77 U/L Diagnostics / Radiology: [Copy/Paste Echos/Imaging Report here] Assessment: [Cholecystitis ] Plan: [Plan laparoscopic cholecystectomy with intraoperative cholangiogram. Risks associated with the procedure not limited to infection, bleeding, injury to surrounding structures has been explained to patient and and they indicate they understand and would like to proceed. ] JOVON BERGER MD August 10, 2024 10:38
[2024-08-10] MEDS: levoFLOXacin 750 MG/D5W 150ML BAG IV SCH (11:43)
[2024-08-10] MEDS: metRONIDazole 500MG/100ML BAG IV SCH (11:43)
--- NOTE | 2024-08-10 16:49 | NUR ---
Discharge Planning: Pt. states she lives with her spouse Richard Hardy. Contact number is . PCP is Dr. Ryley Worley, and preferred pharmacy is [facility]. Pt. states she is independent with all ADL's. No home health, provider services, or DME. Pt. states she sometimes ambulates with a cane for stability. DCP is for home. No d/c needs at present time. Addendum: 08/10/24 at 1655 by RAHEEM SANTA RN CM Amended: Links added.
[2024-08-10] MEDS ORDERED: AMOX1TAB15 PO (19:42)
[2024-08-10] MEDS ORDERED: PRAV40TA3 PO (19:44)
[2024-08-10] MEDS ORDERED: ESCI20TA38 PO (19:44)
[2024-08-10] MEDS ORDERED: HYDR25TA67 PO (19:46)
[2024-08-10] MEDS ORDERED: RIVA20TA PO (19:46)
[2024-08-10] MEDS ORDERED: MIRT45TA79 PO (19:46)
[2024-08-10] MEDS ORDERED: BUSP15 PO (19:47)
[2024-08-10] MEDS ORDERED: AMLO-257 PO (19:48)
[2024-08-10] MEDS ORDERED: GABA-529 PO (19:48)
[2024-08-10] MEDS: PoTASSium chloRIDE 20MEQ/100ML 100 ML IV PRN (20:45)
[2024-08-11] VITALS (24 sets, daily range): BP systolic 119–153; BP diastolic 43–89; PULSE 63–74; RESP 15–20; TEMP 97.9–99.5; O2SAT 96
[2024-08-11 05:23] LABS: BASOPHILS # (AUTO) 0.02 K/uL (0.00-0.20); BASOPHILS % (AUTO) 0.2 % (0.0-5.0); EOSINOPHILS # (AUTO) 0.01 K/uL (0.00-0.70); EOSINOPHILS % (AUTO) 0.1 % (0.0-8.0); HEMATOCRIT 28.5 % (36-48); LYMPHOCYTES # (AUTO) 0.4 K/uL (1.0-4.8); LYMPHOCYTES % (AUTO) 4.1 % (21.0-51.0); MEAN CORPUSCULAR HEMOGLOBIN 29.8 pg (27.0-33.0); MEAN CORPUSCULAR HGB CONC 30.9 g/dL (32.0-36.0); MEAN CORPUSCULAR VOLUME 96.6 fL (79-99); MONOCYTES # (AUTO) 0.7 K/uL (0.1-1.0); MONOCYTES % (AUTO) 6.3 % (3.0-13.0); NEUTROPHILS # (AUTO) 9.2 K/uL (1.8-7.7); NEUTROPHILS % (AUTO) 87.4 % (40.0-77.0); PLATELET COUNT (AUTO) 110 K/uL (130-400); RED BLOOD CELL COUNT(AUTO) 2.95 MIL/uL (4.00-5.50); RED CELL DISTRIBUTION WIDTH 15.5 % (11.0-15.5); WHITE BLOOD COUNT (AUTO) 10.5 K/uL (4.8-10.8)
[2024-08-11 05:48] LABS: CREATININE 1.3 mg/dL (0.5-1.0); POTASSIUM 4.5 mmol/L (3.5-5.1)
--- NOTE | 2024-08-11 09:37 | PN ---
[facility] PROGRESS NOTE Date Patient Seen: August 11, 2024 Time of Visit: 10:37 Supervising Physician: [Dr. Palencia] Primary Care Physician: Dr. Ryley Worley Outpatient Specialists: [ ] Inpatient Consults: [ ] PROBLEM LIST: Hypertensive emergency POA, resolved Acute cholecystitis POA. CAD with remote CABG Hyperlipidemia. Hypertension. Anxiety. Depression. Legally blind. INTERVAL HISTORY: [Patient is evaluated at bedside. She continues with moderate abdominal pain, has been NPO pending laparoscopic cholecystectomy. It is Scheduled for today in the afternoon, we will follow General surgery recommendations postop. She has mild GENNA per today's labs, will DC IVF.] REVIEW OF SYSTEMS: 12 point ROS reviewed with patient. Pertinent positives mentioned above. Otherwise negative. PHYSICAL EXAM: GENERAL: Alert, weak, awake oriented x 3 HEENT: EOMI, Sclera non icteric, moist mucosa NECK: Supple, no JVD, trachea midline LUNGS: Clear breath sounds bilaterally. No wheezes HEART: Regular rate and rhythm. Normal S1 and S2, without murmurs ABD: Abdomen soft, RUQ tender. Bowel sounds present EXT: No clubbing cyanosis or edema NEURO: Alert and oriented to person, follows commands Vital Signs (last 8hr) Date Time Temp Pulse Resp B/P (MAP) Pulse Ox O2 Delivery O2 Flow Rate FiO2 08/11/24 08:05 99.5 74 17 120/55 99 Room Air 08/11/24 07:27 96 Room Air* 0 N/A Nasal Cannula* 08/11/24 03:25 97.9 72 18 119/45 96 Nasal Cannula 2.0 LABS: Hematology Labs: Test 08/11/24 04:15 08/10/24 03:40 Range/Units White Blood Count 10.5 4.8-10.8 K/uL Red Blood Count 2.95 L 4.00-5.50 MIL/uL Hemoglobin 8.8 L 12.0-16.0 g/dL Hematocrit 28.5 L 36-48 % Mean Corpuscular Volume 96.6 79-99 fL Mean Corpuscular Hemoglobin 29.8 27.0-33.0 pg Mean Corpuscular Hemoglobin Concent 30.9 L 32.0-36.0 g/dL Red Cell Distribution Width 15.5 11.0-15.5 % Platelet Count 110 L 130-400 K/uL Mean Platelet Volume 12.9 H 7.5-10.5 fL Immature Granulocyte % (Auto) 1.9 H 0-1 % Neutrophils (%) (Auto) 87.4 H 40.0-77.0 % Lymphocytes (%) (Auto) 4.1 L 21.0-51.0 % Monocytes (%) (Auto) 6.3 3.0-13.0 % Eosinophils (%) (Auto) 0.1 0.0-8.0 % Basophils (%) (Auto) 0.2 0.0-5.0 % Neutrophils # (Auto) 9.2 H 1.8-7.7 K/uL Lymphocytes # (Auto) 0.4 L 1.0-4.8 K/uL Monocytes # (Auto) 0.7 0.1-1.0 K/uL Eosinophils # (Auto) 0.01 0.00-0.70 K/uL Basophils # (Auto) 0.02 0.00-0.20 K/uL Absolute Immature Granulocyte (auto 0.20 0-1 K/uL Nucleated Red Blood Cells 0.0 0.0-0.19 % Red Blood Cell Morphology See comments Chemistry Labs: Test 08/11/24 05:05 08/11/24 04:15 08/10/24 03:40 Range/Units Whole Blood Glucose 173 H 70-110 MG/DL Sodium Level 140 136-145 mmol/L Potassium Level 4.5 3.5-5.1 mmol/L Chloride Level 107 101-111 mmol/L Carbon Dioxide Level 27 21-32 mmol/L Blood Urea Nitrogen 29 H 7-18 mg/dL Creatinine 1.3 H 0.5-1.0 mg/dL Glomerular Filtration Rate Calc 45 >90 mL/min Random Glucose 155 H 70-105 mg/dL Total Calcium 8.0 L 8.5-10.1 mg/dL Magnesium Level 1.60 L 1.80-2.40 mg/dL DIAGNOSTICS / RADIOLOGY RESULTS: [ ] PLAN Discontinue IV fluids Continue IV antibiotics NPO pending laparoscopic cholecystectomy Follow postop recommendation Disposition TBD NEURO: Minimize central acting medications as possible. Maintain fall precautions, adequate lighting during the day PULMONARY: Supplemental 02 as needed. Maintain aspiration precautions at all times CARDIOVASCULAR: Follow hemodynamics. Vital signs per facility protocol GI & NUTRITION: Continue with nutritional support. Continue stool softeners and laxatives as needed. KIDNEYS & ELECTROLYTES: Strict monitoring of intake, output and overall fluid balance. Avoid nephrotoxic medications to the extent possible. Medications to be dosed according to renal function. Monitor electrolytes and replace as needed ENDOCRINE: Maintain blood glucose between 100-180 at all times. Hypoglycemia protocol in place INFECTIOUS DISEASE: Trend temperature, WBC and procalcitonin level Follow cultures, deescalate antibiotics as soon as possible. Panculture if new onset fever ONCOLOGY/HEMATOLOGY/COAGULATION: Monitor for s/s of bleeding Monitor hemoglobin, coagulation studies as needed SKIN: Pressure ulcer prevention per facility protocol Specialty mattress ORTHO/REHAB: Continue PT/OT Prophylaxis: Continue GI and DVT prophylaxis Code Status: Full Resuscitation Disposition: Med/Surg Other: Total patient care time exceeds 35 minutes excluding all procedures. JOSÉ MIGUEL HENRY August 11, 2024 09:37
--- NOTE | 2024-08-11 15:46 | NUR ---
TAKEN OFF UNIT TO THE OR
[2024-08-11] MEDS ORDERED: IOHEXOL-350 50ML VIAL IV ONE (16:20)
[2024-08-11] MEDS ORDERED: LIDOCAINE PF 100MG/5ML (2%) SYRINGE 5ML ONE (16:23)
[2024-08-11] MEDS ORDERED: rocuRONium bROMide 10MG/1ML 5ML VL ONE (16:24)
[2024-08-11] MEDS ORDERED: SUCCINYLCHOLINE CHLORIDE 20 MG/ML 10 ML VIAL ONE (16:24)
[2024-08-11] MEDS ORDERED: MIDAZOLAM HCL 1 MG/ML 2ML VIAL ONE (16:24)
[2024-08-11] MEDS ORDERED: proPOFol 10 MG/ML 20ML VIAL IV ONE (16:24)
[2024-08-11] MEDS ORDERED: FENTanyl CITRate PF 50 MCG/1 ML 2ML VIAL ONE (16:27)
[2024-08-11] MEDS: CLINDAMYCIN IVPB 600MG/50ML 50 ML IV ONE (16:36)
[2024-08-11] MEDS: IOHEXOL-350 50ML VIAL IV ONE (17:17)
[2024-08-11] MEDS ORDERED: GLUCAGON 1MG KIT 1 MG ML ONE (17:20)
--- NOTE | 2024-08-11 17:58 | OP ---
Operative Note: DATE OF PROCEDURE: 08/11/24 SURGEON: JOVON BERGER MD SCREENING SPECIALIST: [Bibi Mendiola CFA] ANESTHESIA: [General endotracheal anesthesia] ANESTHESIOLOGIST/SENIOR SYSTEM OPERATOR: [[facility] anesthesia team] PREOPERATIVE DIAGNOSIS: [Cholecystitis] POSTOPERATIVE DIAGNOSIS: [Cholecystitis with choledocholithiasis] SYNOPSIS: [Cholecystitis with choledocholithiasis Laparoscopic cholecystectomy with intraoperative cholangiogram #1 critical view obtained, #2 intraoperative cholangiogram with good flow of contrast from cystic duct into common bile duct, right and left hepatic duct, choledocholithiasis at the ampulla of Vater noted All sponges and instruments were accounted for at the end the case Patient tolerated the procedure well, there no complications] PROCEDURE: [Laparoscopic cholecystectomy with intraoperative cholangiogram] ESTIMATED BLOOD LOSS: [Less than 10 cc] INDICATIONS: [Cholecystitis] DESCRIPTION OF PROCEDURE: [On day of surgery patient was brought to the operating room. Positioned in the supine position. Preoperative antibiotics were given. Bilateral SCDs were placed. The patient was intubated. Patient then was prepped and draped in the usual fashion. Then a skin incision was made in the right upper quadrant. 5 mm trochars inserted under direct vision. Abdomen was insufflated to 15 mmHg. No injury to omentum or bowel is noted. A 5 mm port was placed in the umbilicus. A 12 mm port was placed in the subxiphoid position. A 5 mm port was placed in the right lateral abdomen. The gallbladder was grasped, elevated, the cystic duct and cystic artery was sequentially dissected. Critical view was obtained. An intraoperative cholangiogram was conducted by placing a clip at the distal end of the cystic duct. Ductotomy was made. A cholangiocatheter was introduced. Good flow of contrast from the cystic duct into common bile duct, right and left hepatic duct, choledocholithiasis at the ampulla of Vater was noted. The decision to do a postoperative ERCP was made. The Cholangiocath was removed. The cystic duct was sequentially clipped and transected. The cystic artery was then sequentially clipped and transected. The gallbladder then was dissected off the gallbladder fossa and removed an Endo Catch bag. Abdomen was irrigated. Appropriate hemostasis was noted. Then all insufflation gas was removed. Ports were removed. Local anesthetic was instilled into the incisions, and the incisions were closed with a subcuticular fashion. All sponges and instruments were accounted for at the end of the case. Patient tolerated the procedure well, there were no complications.] JOVON BERGER MD August 11, 2024 17:58
[2024-08-11] MEDS ORDERED: GLYCOPYRROLATE 0.2 MG/ML 5 ML VIAL ONE (18:03)
[2024-08-11] MEDS ORDERED: NEOSTIGMINE METHYLSULFATE 1MG/ML IV ONE (18:03)
[2024-08-11] MEDS: ondanSETRON 4MG INJ ONE (19:10)
--- NOTE | 2024-08-11 19:20 | NUR ---
RETURNED TO UNIT AT THIS TIME PT ON 2L, AAOX4, LYING COMFORTABLY IN BED. REPORTS NO NAUSEA OR PAIN. X4 INCISIONS ON ABDOMEN. NEW ORDERS REVIEWED AND ENTERED.
[2024-08-11] MEDS: morPHINE 2 MG SYG IVP PRN (20:13)
[2024-08-12] VITALS (12 sets, daily range): BP systolic 92–140; BP diastolic 45–76; PULSE 69–118; RESP 17–28; TEMP 97.1–98.9; O2SAT 96
[2024-08-12 05:12] LABS: BASOPHILS # (AUTO) 0.02 K/uL (0.00-0.20); BASOPHILS % (AUTO) 0.2 % (0.0-5.0); HEMATOCRIT 31.9 % (36-48); IMMATURE GRANULOCYTE ABSOLUTE 0.02 K/uL (0-1); LYMPHOCYTES # (AUTO) 0.4 K/uL (1.0-4.8); LYMPHOCYTES % (AUTO) 4.6 % (21.0-51.0); MEAN CORPUSCULAR HEMOGLOBIN 30.2 pg (27.0-33.0); MEAN CORPUSCULAR HGB CONC 31.7 g/dL (32.0-36.0); MEAN CORPUSCULAR VOLUME 95.5 fL (79-99); MONOCYTES # (AUTO) 0.5 K/uL (0.1-1.0); MONOCYTES % (AUTO) 5.6 % (3.0-13.0); NEUTROPHILS # (AUTO) 7.2 K/uL (1.8-7.7); NEUTROPHILS % (AUTO) 89.4 % (40.0-77.0); PLATELET COUNT (AUTO) 165 K/uL (130-400); RED BLOOD CELL COUNT(AUTO) 3.34 MIL/uL (4.00-5.50); RED CELL DISTRIBUTION WIDTH 15.5 % (11.0-15.5); WHITE BLOOD COUNT (AUTO) 8.1 K/uL (4.8-10.8)
[2024-08-12 06:22] LABS: CREATININE 1.2 mg/dL (0.5-1.0); POTASSIUM 4.5 mmol/L (3.5-5.1)
--- NOTE | 2024-08-12 07:14 | NUR ---
ATTEMPTED TO CALL FOR ERCP CONSENT AT THIS TIME NO ANSWER. WILL NOTIFY DAYSHIFT
--- NOTE | 2024-08-12 09:30 | CONS ---
GASTROINTESTINAL CONSULTATION REFERRING PHYSICIAN: Jose Lockhart MD REASON FOR CONSULTATION: Right upper quadrant abdominal pain, nausea, elevated liver chemistries and abnormal abdominal imaging with intraoperative cholangiogram showing choledocholithiasis/biliary obstruction and ultrasound of the abdomen showing dilated CBD. HISTORY OF PRESENT ILLNESS: The patient is a 68-year-old female with history of CAD, HTN, DM who is legally blind secondary to diabetic retinopathy who was admitted with right upper quadrant abdominal pain, nausea and who also has elevated liver chemistries and abnormal abdominal imaging with ultrasound showing dilated CBD and gallstones and intraoperative angiogram showing choledocholithiasis for which GI evaluation and management are sought. According to the patient, she has been having right upper quadrant sharp abdominal pain over the last 2 weeks. The pain episode lasts about 4 hours and the pain has radiated to the right lower quadrant and across to left upper quadrant also. The pain has been unchanged with p.o. food intake and bowel movements. The patient has experienced some episodes of nausea but denies any vomiting, fever, chills, constipation, diarrhea or hematochezia, but admits to melena 1 week ago. The patient denies any abdominal trauma or NSAID use, but admits to anticoagulant therapy, last used 1 week ago. The patient has no family history of gallbladder disease, liver disease, colon cancer, stomach cancer or IBD. ALLERGIES: CAPTOPRIL, TRAMADOL, PENICILLIN. SOCIAL HISTORY: The patient denies alcohol use, tobacco use, illicit drug use. FAMILY HISTORY: Significant for diabetes mellitus, hypertension, coronary artery disease, myocardial infarction, possible cerebrovascular accident, but no colon cancer, stomach cancer, gallbladder, pancreatic or liver disease. REVIEW OF SYSTEMS: CONSTITUTIONAL: The patient reports she is legally blind. Her abdominal pain and nausea have improved since hospitalization. She has had no fever or chills. OPHTHALMOLOGY: She is legally blind. She denies periorbital swelling, redness or drainage. DERMATOLOGY: Denies any rash, bruises, excessive dry skin. ENT: No ear pain, tinnitus, hearing loss, nasal congestion, rhinorrhea, sore throat, or voice changes. RESPIRATORY: Denies wheezes, rhinorrhea, epistaxis, chest congestion. No cough. CARDIOVASCULAR: No chest pain, palpitations, leg swelling. GENITOURINARY: No dysuria, hematuria, urgency, or frequency. GASTROINTESTINAL: She has been having right upper quadrant abdominal pain and nausea. This has improved since hospitalization. She had melena 1 week ago, but denies any hematochezia. She has had no diarrhea or constipation. MUSCULOSKELETAL: No joint pain, joint swelling or backache. NEUROLOGY: She is legally blind from diabetic retinopathy. She denies any tingling or numbness. PSYCHIATRY: History of depression and anxiety as per medical records. HEMATOLOGY/LYMPHATICS: The patient reports melena 1 week ago but no hematochezia. ENDOCRINOLOGY: She has a history of diabetes mellitus, hyperlipidemia, but no documented thyroid disease. PHYSICAL EXAMINATION: GENERAL: The patient is a 68-year-old female with high body mass index, seen resting in bed in no acute respiratory distress. VITAL SIGNS: Blood pressure 134/62, heart rate 71, respirations 20, temperature 98.1 degrees Fahrenheit. SKIN: Warm and dry. No active dermatosis. HEENT: The patient's head was normocephalic, atraumatic. Pupils reactive. Sclerae nonicteric. Oral mucosa was moist. No obvious lesion. No blood noted. Nasal mucosa showed no epistaxis, septal deviation or perforation. NECK: No mass or jugular venous distention. No lymphadenopathy or thyromegaly. LUNGS: Clear to auscultation bilaterally. HEART: S1, S2. No obvious murmurs, rubs, gallops auscultated. ABDOMEN: Mildly protuberant, soft with active bowel sounds. No hepatomegaly or masses. Tenderness noted in the epigastrium, right upper abdominal quadrant, at umbilicus, site of laparoscopic examination. EXTREMITIES: No cyanosis, clubbing or edema. RECTAL: Deferred. LABORATORY DATA: WBC 10.5, hemoglobin 8.8, hematocrit 28.5, MCV 96.6, platelet count of 110. Serum chemistry revealed sodium of 139, potassium 3.9 one day ago, chloride of 103, CO2 of 28, BUN of 24, creatinine 0.9, GFR 71, random glucose 258, calcium 9.6. Total bilirubin of 0.5, direct 0.2, AST 71, ALT 62, alkaline phosphatase 127, total protein 8.1, albumin 4.1, lipase of 37. DIAGNOSTIC DATA: Ultrasound of the abdomen done on 08/09/2024 showed sludge material gallstones in the gallbladder. Common bile duct is dilated measuring 9 mm. Tiny pericholecystic fluid is seen. No hydronephrosis noted. Intraoperative cholangiogram revealed choledocholithiasis. IMPRESSION: * Right upper quadrant abdominal pain with nausea, elevated liver chemistries and abnormal abdominal imaging with intraoperative cholangiogram showing choledocholithiasis. This is consistent with findings of dilated CBD on ultrasound, which is likely from the choledocholithiasis. The patient is at risk for ascending cholangitis. * Obesity. * Coronary artery disease. * Hypertension. * Diabetes mellitus. * Anemia, possible from PUD with the patient reporting GI bleed, recent melena, peptic ulcer, upper GI angiodysplastic lesion or Dieulafoy's lesion of concern. Right colon AVM, colon ulcers, colon CA cannot be excluded too. PLAN: * Recommend ERCP for further evaluation and management. * The patient will benefit from EGD also. * She may need a colonoscopy if EGD unrevealing. * Continue to monitor CBC, transfuse PRBC as needed to hemoglobin of 7. * Follow up with a.m. labs including CMP and CBC. Dr. Palencia and Dr. Villagran, thank you for allowing me to participate in the care of this patient. TID: [id number] RECEIPT: [id number] cc: Jose Lockhart MD(User)
[2024-08-12] MEDS ORDERED: LIDOCAINE PF 100MG/5ML (2%) SYRINGE 5ML ONE (09:39)
[2024-08-12] MEDS ORDERED: GLYCOPYRROLATE 0.2 MG/ML 5 ML VIAL ONE (09:39)
[2024-08-12] MEDS ORDERED: dexaMETHasone SOD PHOSPHATE 10MG/ML 1ML VIAL ONE (09:39)
[2024-08-12] MEDS ORDERED: ondanSETRON 4MG INJ ONE (09:39)
[2024-08-12] MEDS ORDERED: rocuRONium bROMide 10MG/1ML 5ML VL ONE (09:40)
[2024-08-12] MEDS ORDERED: FENTanyl CITRate PF 50 MCG/1 ML 2ML VIAL ONE (09:40)
[2024-08-12] MEDS ORDERED: NEOSTIGMINE METHYLSULFATE 1MG/ML IV ONE (09:40)
[2024-08-12] MEDS ORDERED: SUCCINYLCHOLINE CHLORIDE 20 MG/ML 10 ML VIAL ONE (09:40)
[2024-08-12] MEDS ORDERED: proPOFol 10 MG/ML 20ML VIAL IV ONE (09:40)
[2024-08-12] MEDS ORDERED: MIDAZOLAM HCL 1 MG/ML 2ML VIAL ONE (09:41)
[2024-08-12] MEDS ORDERED: IOHEXOL-350 50ML VIAL IV ONE (11:14)
[2024-08-12] MEDS: levoFLOXacin 750 MG/D5W 150ML BAG IV SCH (14:13)
--- NOTE | 2024-08-12 16:02 | EKG ---
[facility] Test Date: 2024-08-12 Test Time: 14:58:54 Pat Name: PROMISE AUSTIN Department: [facility] Room: 222 Gender: F Risk Control Director: [id number] : 1955 Requested By: JOSÉ MIGUEL HENRY Order Number: [id number] Reading MD: Paul Wiley Measurements Intervals [place] Rate: 115 P: 0 UT: 0 QRS: 44 QRSD: 100 T: -32 QT: 316 QTc: 437 Interpretive Statements Atrial fibrillation with rapid ventricular response Septal infarct , age undetermined Inferior infarct , age undetermined Compared to ECG 07/21/2024 08:45:36 Sinus rhythm no longer present Myocardial infarct finding still present Electronically Signed On 08-12-2024 21:37:04 CDT by Paul Wiley Please click the below link to view image of tracing.
[2024-08-12] MEDS: metoPROLOL tartRATE 1 MG/ML 5ML VIAL IV ONE ×2 (17:44→19:00)
[2024-08-12] MEDS: CEFTRIAXONE 2GM VIAL IVPB SCH (18:20)
--- NOTE | 2024-08-12 19:06 | PN ---
[facility] PROGRESS NOTE Date Patient Seen: August 12, 2024 Time of Visit: 19:01 Supervising Physician: [Dr. Hoover] Primary Care Physician: Dr. Ryley Worley Outpatient Specialists: [ ] Inpatient Consults: [ ] PROBLEM LIST: New onset Atrial fibrillation Hypertensive emergency POA, resolved Acute cholecystitis POA. CAD with remote CABG Hyperlipidemia. Hypertension. Anxiety. Depression. Legally blind. INTERVAL HISTORY: [Patient is evaluated at bedside. She continues with moderate abdominal pain, has been NPO pending laparoscopic cholecystectomy. It is Scheduled for today in the afternoon, we will follow General surgery recommendations postop. She has mild GENNA per today's labs, will DC IVF.] 08/12 patient is evaluated at bedside. She was scheduled for ERCP today, however once in the operating room she was found to be in atrial fibrillation with RVR which was apparently new in onset. Review of her home medications show that she was taking Xarelto 20 mg daily, however did not know the indication. She stated had never known about AFib and therefore is thought to be in new in onset. She is not on any antiarrhythmics at home. She has a history of CAD followed by a [facility] heart clinic. ERCP was postpone pending cardiac evaluation. REVIEW OF SYSTEMS: 12 point ROS reviewed with patient. Pertinent positives mentioned above. Otherwise negative. PHYSICAL EXAM: GENERAL: Alert, weak, awake oriented x 3 HEENT: EOMI, Sclera non icteric, moist mucosa NECK: Supple, no JVD, trachea midline LUNGS: Clear breath sounds bilaterally. No wheezes HEART: Regular rate and rhythm. Normal S1 and S2, without murmurs ABD: Abdomen soft, RUQ tender. Bowel sounds present EXT: No clubbing cyanosis or edema NEURO: Alert and oriented to person, follows commands Vital Signs (last 8hr) Date Time Temp Pulse Resp B/P (MAP) Pulse Ox O2 Delivery O2 Flow Rate FiO2 08/12/24 17:44 116 123/62 08/12/24 15:32 106 18 102/58 94 Room Air 08/12/24 11:20 99.0 85 17 116/62 94 Room Air LABS: Hematology Labs: Test 08/12/24 04:10 Range/Units White Blood Count 8.1 4.8-10.8 K/uL Red Blood Count 3.34 L 4.00-5.50 MIL/uL Hemoglobin 10.1 L 12.0-16.0 g/dL Hematocrit 31.9 L 36-48 % Mean Corpuscular Volume 95.5 79-99 fL Mean Corpuscular Hemoglobin 30.2 27.0-33.0 pg Mean Corpuscular Hemoglobin Concent 31.7 L 32.0-36.0 g/dL Red Cell Distribution Width 15.5 11.0-15.5 % Platelet Count 165 # 130-400 K/uL Mean Platelet Volume 13.4 H 7.5-10.5 fL Immature Granulocyte % (Auto) 0.2 0-1 % Neutrophils (%) (Auto) 89.4 H 40.0-77.0 % Lymphocytes (%) (Auto) 4.6 L 21.0-51.0 % Monocytes (%) (Auto) 5.6 3.0-13.0 % Eosinophils (%) (Auto) 0.0 0.0-8.0 % Basophils (%) (Auto) 0.2 0.0-5.0 % Neutrophils # (Auto) 7.2 1.8-7.7 K/uL Lymphocytes # (Auto) 0.4 L 1.0-4.8 K/uL Monocytes # (Auto) 0.5 0.1-1.0 K/uL Eosinophils # (Auto) 0.00 0.00-0.70 K/uL Basophils # (Auto) 0.02 0.00-0.20 K/uL Absolute Immature Granulocyte (auto 0.02 0-1 K/uL Nucleated Red Blood Cells 0.0 0.0-0.19 % Chemistry Labs: Test 08/12/24 17:24 08/12/24 16:11 08/12/24 04:10 Range/Units Troponin I High Sensitivity 309 *H 4-50 ng/L Whole Blood Glucose 159 H 70-110 MG/DL Sodium Level 141 136-145 mmol/L Potassium Level 4.5 3.5-5.1 mmol/L Chloride Level 109 101-111 mmol/L Carbon Dioxide Level 23 21-32 mmol/L Blood Urea Nitrogen 30 H 7-18 mg/dL Creatinine 1.2 H 0.5-1.0 mg/dL Glomerular Filtration Rate Calc 50 >90 mL/min Random Glucose 100 70-105 mg/dL Total Calcium 8.3 L 8.5-10.1 mg/dL DIAGNOSTICS / RADIOLOGY RESULTS: [ ] PLAN Discontinue Levofloxacin Start Rocephin, continue Flagyl Lopressor 5 mg IV x1 dose, repeat in 5-15 minutes for a total of three doses as needed for AFib with heart rate sustained above 120 Stat EKG Consult cardiology for evaluation and clearance for surgery Initiate clear liquid diet pending cardiac workup Disposition TBD NEURO: Minimize central acting medications as possible. Maintain fall precautions, adequate lighting during the day PULMONARY: Supplemental 02 as needed. Maintain aspiration precautions at all times CARDIOVASCULAR: Follow hemodynamics. Vital signs per facility protocol GI & NUTRITION: Continue with nutritional support. Continue stool softeners and laxatives as needed. KIDNEYS & ELECTROLYTES: Strict monitoring of intake, output and overall fluid balance. Avoid nephrotoxic medications to the extent possible. Medications to be dosed according to renal function. Monitor electrolytes and replace as needed ENDOCRINE: Maintain blood glucose between 100-180 at all times. Hypoglycemia protocol in place INFECTIOUS DISEASE: Trend temperature, WBC and procalcitonin level Follow cultures, deescalate antibiotics as soon as possible. Panculture if new onset fever ONCOLOGY/HEMATOLOGY/COAGULATION: Monitor for s/s of bleeding Monitor hemoglobin, coagulation studies as needed SKIN: Pressure ulcer prevention per facility protocol Specialty mattress ORTHO/REHAB: Continue PT/OT Prophylaxis: Continue GI and DVT prophylaxis Code Status: Full Resuscitation Disposition: Med/Surg Other: Total patient care time exceeds 52 minutes excluding all procedures. JOSÉ MIGUEL HENRY August 12, 2024 19:06
[2024-08-12] MEDS ORDERED: AMIOdarone 900MG VIAL 360 MG in DEXTROSE 5%-WATER 200 ML IV SCH ×2 (20:00→20:30)
[2024-08-12] MEDS ORDERED: AMIOdarone 150MG VIAL 150 MG in DEXTROSE 5%-WATER 100 ML IV SCH ×2 (20:00→20:30)
--- NOTE | 2024-08-12 20:07 | CONS ---
[facility] CONSULTATION REPORT Date Patient Seen: August 12, 2024 Time of Visit: 19:48 Requesting Physician: Dr. Villagran Reason for Consultation: Paroxysmal atrial fibrillation with rapid ventricular response History of Present Illness: This 68-year-old [place] female, patient of Dr. Nataliia Gaona, has a history of essential hypertension, type 2 diabetes mellitus, stage II chronic renal insufficiency, paroxysmal atrial fibrillation on chronic Xarelto anticoagulation, mild mitral stenosis and trivial aortic stenosis by 2D echo 04/23/2024, pulmonary hypertension, blindness, obesity status post remote gastric bypass, and coronary artery disease status post remote coronary artery bypass grafting x4 vessels 11/10/2009 with sequential saphenous vein graft to the diagonal-2 and LAD, curtis graft to the OM1, and radial graft to the PDA who is status post recent follow-up cardiac catheterization 07/23/2024 demonstrating 4/4 grafts patent, minimal aortic stenosis, and an ejection fraction of 60% by a recent 2D echocardiogram 04/23/2024. She was admitted for cholecystectomy which she underwent laparoscopically 08/11/2024. This morning she was noted to be in atrial fibrillation with rapid ventricular response and Cardiology was consulted. The patient does not sense her palpitations and feels comfortable currently. She was not on any beta-mulu medications presumably due to underlying mild sinus bradycardia which has been documented in our office notes. Past Medical History: As outlined above and is summarized below Past Surgical History: Prior remote coronary artery bypass grafting x4 vessels 11/10/2009 Hysterectomy and unilateral oophorectomy Prior biopsy of a lymph node? Family History: Noncontributory Social History: Noncontributory Habits: Never smoker. Denies alcohol consumption. Denies illicit drug use Home Meds: Xarelto 20 mg p.o. daily Trazodone 50 mg q.h.s. p.r.n. Amlodipine5 mg p.o. daily Gabapentin 100 mg q.h.s. [id number] mg p.o. t.i.d. Citalopram 10 mg p.o. daily [id number] mg p.o. daily Umhdhsdtf19 mg p.o. b.i.d. Pravastatin 80 mg p.o. daily Ferrous [id number] mg3 times a week Review of Systems: CONST: No fever, fatigue, or weight changes. EYES: No recent vision problems. ENT: No congestion, ear pain, or sore throat. C/V: No chest pain, palpitations, or edema. RESP: No cough, congestion, wheezing or shortness of breath. GI: No abdominal pain, nausea, vomiting, constipation, or diarrhea. : No incontinence or dysuria. SKIN: No rash. NEURO: No headache, focal numbness or weakness, dizziness, or seizures. PSYCH: No depression or anxiety. HEME: No abnormal bruising or bleeding. LYMPH: No swollen glands. Physical Examination: GENERAL: No acute distress. HEAD: Normal with no signs of head trauma. EYES: PERRLA, EOMI, conjunctiva and sclera normal. ENT: Hearing grossly intact, normal oropharynx. NECK: Supple without JVD. There is no tenderness, lymphadenopathy, or masses. No thyromegaly. Normal carotid upstrokes without bruits. LUNGS: Clear breath sounds bilaterally. No wheezes, or rhonchi. HEART: Irregularly irregular rhythm with mild tachycardia. Normal S1 and S2 without murmurs, gallop or rub. VASC: Peripheral pulses +2 bilaterally. ABD: Bowel sounds normal. Laparoscopic cholecystectomy wounds appear without significant bleeding or hematoma. Abdomen soft, nontender, no masses, no organomegaly. No audible bruits. : Not examined LYMPH: No lymphadenopathy noted. EXT: No clubbing, cyanosis or edema. SKIN: No rashes or lesions noted. NEURO: Awake, alert, and oriented x3. No focal sensory or strength deficits noted. Vital Signs (last 8hr) Date Time Temp Pulse Resp B/P (MAP) Pulse Ox O2 Delivery O2 Flow Rate FiO2 08/12/24 17:44 116 123/62 08/12/24 15:32 106 18 102/58 94 Room Air Laboratory: Hematology Labs: Test 08/12/24 04:10 Range/Units White Blood Count 8.1 4.8-10.8 K/uL Red Blood Count 3.34 L 4.00-5.50 MIL/uL Hemoglobin 10.1 L 12.0-16.0 g/dL Hematocrit 31.9 L 36-48 % Mean Corpuscular Volume 95.5 79-99 fL Mean Corpuscular Hemoglobin 30.2 27.0-33.0 pg Mean Corpuscular Hemoglobin Concent 31.7 L 32.0-36.0 g/dL Red Cell Distribution Width 15.5 11.0-15.5 % Platelet Count 165 # 130-400 K/uL Mean Platelet Volume 13.4 H 7.5-10.5 fL Immature Granulocyte % (Auto) 0.2 0-1 % Neutrophils (%) (Auto) 89.4 H 40.0-77.0 % Lymphocytes (%) (Auto) 4.6 L 21.0-51.0 % Monocytes (%) (Auto) 5.6 3.0-13.0 % Eosinophils (%) (Auto) 0.0 0.0-8.0 % Basophils (%) (Auto) 0.2 0.0-5.0 % Neutrophils # (Auto) 7.2 1.8-7.7 K/uL Lymphocytes # (Auto) 0.4 L 1.0-4.8 K/uL Monocytes # (Auto) 0.5 0.1-1.0 K/uL Eosinophils # (Auto) 0.00 0.00-0.70 K/uL Basophils # (Auto) 0.02 0.00-0.20 K/uL Absolute Immature Granulocyte (auto 0.02 0-1 K/uL Nucleated Red Blood Cells 0.0 0.0-0.19 % Chemistry Labs: Test 08/12/24 19:38 08/12/24 17:24 08/12/24 04:10 Range/Units Whole Blood Glucose 141 H 70-110 MG/DL Troponin I High Sensitivity 309 *H 4-50 ng/L Sodium Level 141 136-145 mmol/L Potassium Level 4.5 3.5-5.1 mmol/L Chloride Level 109 101-111 mmol/L Carbon Dioxide Level 23 21-32 mmol/L Blood Urea Nitrogen 30 H 7-18 mg/dL Creatinine 1.2 H 0.5-1.0 mg/dL Glomerular Filtration Rate Calc 50 >90 mL/min Random Glucose 100 70-105 mg/dL Total Calcium 8.3 L 8.5-10.1 mg/dL Diagnostics / Radiology: 2D echocardiogram 04/23/2024: Conclusion Left ventricular cavity size is normal. LVEF is 60%. Grade 3 diastolic dysfunction. The right ventricle is moderately dilated. Right ventricular systolic function is mildly to moderately reduced. The left atrium is severely dilated. The right atrium is moderately dilated. Aortic valve is trileaflet, with a calcified left coronary leaflet that exhibits decreased excursion. Mild aortic regurgitation. Mild to moderate aortic stenosis with a calculated aortic valve area is 1.3 cm2 with maximum pressure gradient of 22.3 mmHg and mean pressure gradient of 10.9 mmHg. Mitral valve leaflets are mildly calcified. Severe posterior mitral annular calcification. Mitral regurgitation is mild. Mild to moderate calcific, non-rheumatic mitral stenosis with a calculated mitral valve area is 1.4 cm2 with maximum pressure gradient of 13.2 mmHg and mean pressure gradient of 3 mmHg. There is moderate tricuspid regurgitation. Right ventricular systolic pressure is estimated at 50-60 mmHg. There is trace to mild valvular regurgitation. The aortic root is normal in size. The IVC is normal in size and collapses >50% with inspiration. No pericardial effusion. DICTATED BY: Dar GAONA II, MD Impression and Plan: Paroxysmal atrial fibrillation, with rapid ventricular response in the 120-130 beat per minute range intermittently postoperative day one status post laparoscopic cholecystectomy: Resting sinus bradycardia on no beta-mulu medication consistent with mild tachycardia bradycardia syndrome: -attempt chemical cardioversion with amiodarone bolus plus infusion overnight -low-dose metoprolol tartrate 12.5 Q 8 hours and reduce if bradycardia ensues -resume Xarelto following planned ERCP with sphincterotomy and stent planned for tomorrow 08/13/2024 Preoperative cardiovascular risk assessment: -the patient underwent cardiac catheterization 07/23/2024 demonstrating patent grafts and she has normal LV systolic function with LVEF of 60% by 2D echo 04/23/2024, in his cleared with low cardiac risk both for her laparoscopic cholecystectomy and for planned ERCP 08/13/2024 -proceed with planned ERCP, sphincterotomy, and stent insertion when rate is controlled, likely tomorrow a.m. 08/13/2024 Long-term Xarelto anticoagulation: -resume Xarelto when cleared by surgery and Dr. Gideon Brady from the gastroenterology service Mild mitral stenosis and trivial aortic stenosis by 2D echo 04/23/2024: Stage III diastolic dysfunction by 2D echo 04/23/2024: Moderate pulmonary hypertension with RV systolic pressure of 50-60 millimeter of mercury by 2D echo 04/23/2024: -SBE prophylaxis prior to any dirty procedures CAD s/p CABG x4 vessels 11/10/2009 with sequential saphenous vein graft to the diagonal-2 and LAD, curtis graft to the OM1, and radial graft to the PDA who is status post recent follow-up cardiac catheterization 07/23/2024 demonstrating 4/4 grafts patent, and minimal aortic stenosis: -cardiac status is stable Comorbidities: Essential hypertension Type 2 diabetes mellitus Stage II chronic renal insufficiency Blindness Obesity status post remote gastric bypass WES GARDNER MD August 12, 2024 20:07
--- NOTE | 2024-08-12 20:40 | NUR ---
Patient transferred from room 332. Patient alert to name. patient is legally blind. Oriented patient to new room, call light within reach. Patient alert to name and place. Forgetful as to where she is at and why, and drowsy but easily aroused. As per satellite project site monitor, patient a-fib 100-110. Orders entered by Santiago Wiley to start amio drip at this time. 20g IV to RFA leaking. 2 new 20 g PIVs inserted. See assessment.
[2024-08-12] MEDS: GABApentin 100 MG CAPSULE PO SCH (21:00)
[2024-08-12] MEDS ORDERED: ENOXAPARIN SODIUM 60 MG/0.6 ML SQ ONE (21:00)
[2024-08-12] MEDS ORDERED: hydrALAZine 25MG TABLET PO SCH (21:00)
[2024-08-12] MEDS: metoPROLOL tartRATE 25 MG TAB PO SCH (22:20)
[2024-08-12] MEDS: busPIRone HCL 5 MG TABLET PO SCH (22:20)
[2024-08-13] VITALS (9 sets, daily range): BP systolic 123–160; BP diastolic 60–77; PULSE 57–85; RESP 18–20; TEMP 97.3–98.6; O2SAT 96
--- NOTE | 2024-08-13 00:23 | NUR ---
As per java tech, patient converted to Sinus Chandrakant 57.
[2024-08-13] MEDS: AMIOdarone 900MG VIAL 540 MG in DEXTROSE 5%-WATER 300 ML IV SCH (03:55)
[2024-08-13] MEDS: INDOMETHACIN 100 MG SUPP.RECT RC ONE (07:00)
--- NOTE | 2024-08-13 08:50 | EKG ---
[facility] Test Date: 2024-08-13 Test Time: 06:40:01 Pat Name: PROMISE AUSTIN Department: [facility] Room: 222 1 Gender: F Ems Coordinator: [id number] : 1955 Requested By: WES GARDNER Order Number: [id number] Reading MD: Romario Ariza Measurements Intervals [place] Rate: 57 P: -49 [place]: 187 QRS: 51 QRSD: 98 T: -20 QT: 457 QTc: 444 Interpretive Statements Sinus or ectopic atrial rhythm Inferior infarct, age indeterminate Compared to ECG 08/12/2024 14:58:54 Ectopic atrial rhythm now present Atrial fibrillation no longer present Myocardial infarct finding still present Electronically Signed On 08-15-2024 12:28:49 CDT by Romario Ariza Please click the below link to view image of tracing.
[2024-08-13] MEDS ORDERED: amLODIPine 5 MG TAB PO SCH (09:00)
--- NOTE | 2024-08-13 09:56 | PN ---
[facility] PROGRESS NOTE Date Patient Seen: August 13, 2024 Time of Visit: 10:46 Supervising Physician: [Dr. Jordan] Primary Care Physician: Dr. Ryley Worley Outpatient Specialists: [ ] Inpatient Consults: [ ] PROBLEM LIST: New onset Atrial fibrillation Hypertensive emergency POA, resolved Acute cholecystitis POA. s/p lap puja 08/11 CAD with remote CABG Hyperlipidemia. Hypertension. Anxiety. Depression. Legally blind. INTERVAL HISTORY: [Patient is evaluated at bedside. She continues with moderate abdominal pain, has been NPO pending laparoscopic cholecystectomy. It is Scheduled for today in the afternoon, we will follow General surgery recommendations postop. She has mild GENNA per today's labs, will DC IVF.] 08/12 patient is evaluated at bedside. She was scheduled for ERCP today, however once in the operating room she was found to be in atrial fibrillation with RVR which was apparently new in onset. Review of her home medications show that she was taking Xarelto 20 mg daily, however did not know the indication. She stated had never known about AFib and therefore is thought to be in new in onset. She is not on any antiarrhythmics at home. She has a history of CAD followed by a [facility] heart clinic. ERCP was postponed pending cardiac evaluation. 08/13 Patient was evaluated at bedside. She was initiated on amiodarone bolus and infusion overnight as well as maintenance metoprolol with resolution of AFib. Continues on amiodarone drip at low dose. Patient continues in sinus Bradycardia with heart rate in the high 50s. She is pending ERCP once cleared by Cardiology. REVIEW OF SYSTEMS: 12 point ROS reviewed with patient. Pertinent positives mentioned above. Otherwise negative. PHYSICAL EXAM: GENERAL: Alert, weak, awake oriented x 3 HEENT: EOMI, Sclera non icteric, moist mucosa NECK: Supple, no JVD, trachea midline LUNGS: Clear breath sounds bilaterally. No wheezes HEART: Regular rate and rhythm. Normal S1 and S2, without murmurs ABD: Abdomen soft, RUQ tender. Bowel sounds present EXT: No clubbing cyanosis or edema NEURO: Alert and oriented to person, follows commands Vital Signs (last 8hr) Date Time Temp Pulse Resp B/P (MAP) Pulse Ox O2 Delivery O2 Flow Rate FiO2 08/13/24 08:00 98.4 57 20 134/67 96 Room Air 08/13/24 07:00 96 Room Air* 0 21 08/13/24 03:20 98.2 59 18 150/77 93 Room Air LABS: Hematology Labs: Test 08/12/24 04:10 Range/Units White Blood Count 8.1 4.8-10.8 K/uL Red Blood Count 3.34 L 4.00-5.50 MIL/uL Hemoglobin 10.1 L 12.0-16.0 g/dL Hematocrit 31.9 L 36-48 % Mean Corpuscular Volume 95.5 79-99 fL Mean Corpuscular Hemoglobin 30.2 27.0-33.0 pg Mean Corpuscular Hemoglobin Concent 31.7 L 32.0-36.0 g/dL Red Cell Distribution Width 15.5 11.0-15.5 % Platelet Count 165 # 130-400 K/uL Mean Platelet Volume 13.4 H 7.5-10.5 fL Immature Granulocyte % (Auto) 0.2 0-1 % Neutrophils (%) (Auto) 89.4 H 40.0-77.0 % Lymphocytes (%) (Auto) 4.6 L 21.0-51.0 % Monocytes (%) (Auto) 5.6 3.0-13.0 % Eosinophils (%) (Auto) 0.0 0.0-8.0 % Basophils (%) (Auto) 0.2 0.0-5.0 % Neutrophils # (Auto) 7.2 1.8-7.7 K/uL Lymphocytes # (Auto) 0.4 L 1.0-4.8 K/uL Monocytes # (Auto) 0.5 0.1-1.0 K/uL Eosinophils # (Auto) 0.00 0.00-0.70 K/uL Basophils # (Auto) 0.02 0.00-0.20 K/uL Absolute Immature Granulocyte (auto 0.02 0-1 K/uL Nucleated Red Blood Cells 0.0 0.0-0.19 % Chemistry Labs: Test 08/12/24 19:58 08/12/24 19:38 08/12/24 04:10 Range/Units Troponin I High Sensitivity 334 *H 4-50 ng/L Whole Blood Glucose 141 H 70-110 MG/DL Sodium Level 141 136-145 mmol/L Potassium Level 4.5 3.5-5.1 mmol/L Chloride Level 109 101-111 mmol/L Carbon Dioxide Level 23 21-32 mmol/L Blood Urea Nitrogen 30 H 7-18 mg/dL Creatinine 1.2 H 0.5-1.0 mg/dL Glomerular Filtration Rate Calc 50 >90 mL/min Random Glucose 100 70-105 mg/dL Total Calcium 8.3 L 8.5-10.1 mg/dL DIAGNOSTICS / RADIOLOGY RESULTS: [ ] PLAN Continue Rocephin, continue Flagyl Continue amiodarone infusion, transition to oral amiodarone per cardio guidance Pending cardiology clearance for surgery Pending ERCP once cleared Disposition TBD NEURO: Minimize central acting medications as possible. Maintain fall precautions, adequate lighting during the day PULMONARY: Supplemental 02 as needed. Maintain aspiration precautions at all times CARDIOVASCULAR: Follow hemodynamics. Vital signs per facility protocol GI & NUTRITION: Continue with nutritional support. Continue stool softeners and laxatives as needed. KIDNEYS & ELECTROLYTES: Strict monitoring of intake, output and overall fluid balance. Avoid nephrotoxic medications to the extent possible. Medications to be dosed according to renal function. Monitor electrolytes and replace as needed ENDOCRINE: Maintain blood glucose between 100-180 at all times. Hypoglycemia protocol in place INFECTIOUS DISEASE: Trend temperature, WBC and procalcitonin level Follow cultures, deescalate antibiotics as soon as possible. Panculture if new onset fever ONCOLOGY/HEMATOLOGY/COAGULATION: Monitor for s/s of bleeding Monitor hemoglobin, coagulation studies as needed SKIN: Pressure ulcer prevention per facility protocol Specialty mattress ORTHO/REHAB: Continue PT/OT Prophylaxis: Continue GI and DVT prophylaxis Code Status: Full Resuscitation Disposition: Med/Surg Other: Total patient care time exceeds 52 minutes excluding all procedures. JOSÉ MIGUEL HENRY August 13, 2024 09:56
[2024-08-13] MEDS: atorVAStatin 20 MG TABLET PO SCH (10:09)
[2024-08-13] MEDS: citaLOPram 20 MG TABLET PO SCH (10:09)
--- NOTE | 2024-08-13 12:31 | PN ---
[facility] CARDIAC ELECTROPHYSIOLGY PROGRESS NOTE Date Patient Seen: August 13, 2024 Time of Visit: 12:23 Interval History: The patient presented on 08/09/2024 with 8 hours of severe midepigastric pain, nausea, and vomiting. She actually had an upcoming cholecystectomy scheduled. She was treated medically and then underwent laparoscopic cholecystectomy with intraoperative cholangiogram. The gallbladder was removed however choledocholithiasis was noted at the ampulla of Vater and it was decided that the patient should undergo a postoperative ERCP. She was seen by Dr. Brady of Gastroenterology who concurred. She presented to the procedure room but was found to be in atrial fibrillation with rapid ventricular response and therefore the procedure was canceled. She was seen by Cardiology (Dr. Paul Wiley), and it amiodarone infusion was initiated. Early this morning at 12:23 a.m., the patient converted to sinus rhythm however there was a conversion pause of 4.1 seconds. She has remained in sinus bradycardia in the 50s ever since. The patient feels well and apparently has not felt her atrial fibrillation in the past. The burden of AF is unclear to me at this time. I do not see any EKGs or outpatient monitors which show atrial fibrillation and she is not on an antiarrhythmic drug however she is on Xarelto. Physical Examination: LUNGS: Clear HEART: Regular with no murmur EXT: No edema Laboratory: [ ] Hematology Labs: Test 08/12/24 04:10 Range/Units White Blood Count 8.1 4.8-10.8 K/uL Red Blood Count 3.34 L 4.00-5.50 MIL/uL Hemoglobin 10.1 L 12.0-16.0 g/dL Hematocrit 31.9 L 36-48 % Mean Corpuscular Volume 95.5 79-99 fL Mean Corpuscular Hemoglobin 30.2 27.0-33.0 pg Mean Corpuscular Hemoglobin Concent 31.7 L 32.0-36.0 g/dL Red Cell Distribution Width 15.5 11.0-15.5 % Platelet Count 165 # 130-400 K/uL Mean Platelet Volume 13.4 H 7.5-10.5 fL Immature Granulocyte % (Auto) 0.2 0-1 % Neutrophils (%) (Auto) 89.4 H 40.0-77.0 % Lymphocytes (%) (Auto) 4.6 L 21.0-51.0 % Monocytes (%) (Auto) 5.6 3.0-13.0 % Eosinophils (%) (Auto) 0.0 0.0-8.0 % Basophils (%) (Auto) 0.2 0.0-5.0 % Neutrophils # (Auto) 7.2 1.8-7.7 K/uL Lymphocytes # (Auto) 0.4 L 1.0-4.8 K/uL Monocytes # (Auto) 0.5 0.1-1.0 K/uL Eosinophils # (Auto) 0.00 0.00-0.70 K/uL Basophils # (Auto) 0.02 0.00-0.20 K/uL Absolute Immature Granulocyte (auto 0.02 0-1 K/uL Nucleated Red Blood Cells 0.0 0.0-0.19 % Chemistry Labs: Test 08/13/24 09:57 08/12/24 19:58 08/12/24 04:10 Range/Units Whole Blood Glucose 234 #H 70-110 MG/DL Troponin I High Sensitivity 334 *H 4-50 ng/L Sodium Level 141 136-145 mmol/L Potassium Level 4.5 3.5-5.1 mmol/L Chloride Level 109 101-111 mmol/L Carbon Dioxide Level 23 21-32 mmol/L Blood Urea Nitrogen 30 H 7-18 mg/dL Creatinine 1.2 H 0.5-1.0 mg/dL Glomerular Filtration Rate Calc 50 >90 mL/min Random Glucose 100 70-105 mg/dL Total Calcium 8.3 L 8.5-10.1 mg/dL Diagnostics / Radiology: [Copy/Paste Echos/Imaging Report here] Impression: 1. Atrial fibrillation with rapid ventricular response in the setting of acute illness 2. History of paroxysmal atrial fibrillation, I suspect with a low burden 3. 4.1 seconds offset pause upon termination of AF 4. Normal LV systolic function and minimal valvular disease 5. Coronary artery disease, stable Plan: 1. Continue amiodarone infusion until completion of protocol 2. Discontinue metoprolol 3. It is hoped that amiodarone will keep the patient sinus rhythm, and discontinuation of metoprolol prevent a longer offset pause if AFib were to recur and then again convert. 4. Suggest proceed with ERCP tomorrow if patient remains in sinus rhythm GENEVA DON MD August 13, 2024 12:31
[2024-08-13] MEDS: metRONIDazole 500MG/100ML BAG IV SCH (20:24)
[2024-08-14] VITALS (8 sets, daily range): BP systolic 139–168; BP diastolic 63–68; PULSE 56–66; RESP 18–20; TEMP 97–98.7; O2SAT 95–96
--- NOTE | 2024-08-14 07:07 | PN ---
[facility]ARDIOLOG[facility] PROGRESS NOTE Date Patient Seen: August 14, 2024 Time of Visit: 06:54 Problem List: Afib paroxysmally Chronic anticoagulation with Xarelto CAD s/p remote CABG x 4, patent grafts per recent left heart cath. HTN HLD MAITE not on CPAP DM II Blindness Cholelithiasis with recent cholecystectomy, concern for retained stone in CBD Interval History: Pt has converted to NSR, was in atrial fib on admission with chemical cardioversion with amiodarone that included a pause. Pt was off rhythm/rate control as she was in NSR/SB as outpt. Recently underwent left heart cath in anticipation of the cholecystectomy. She had patent CABG grafts and severe shinnecock disease. Pt remains on antihypertensive regimen with amlodipine and has subtotal renal artery disease at 40% to bilateral renal arteries. She denies any chest pain. Remains with some soreness post operatively. Physical Examination: LUNGS: Clear HEART: Regular with no murmur EXT: No edema Laboratory: [ ] Chemistry Labs: Test 08/14/24 05:34 08/12/24 19:58 Range/Units Whole Blood Glucose 170 H 70-110 MG/DL Troponin I High Sensitivity 334 *H 4-50 ng/L Diagnostics / Radiology: [Copy/Paste Echos/Imaging Report here] Impression: 1. Atrial fibrillation with rapid ventricular response in the setting of acute illness 2. History of paroxysmal atrial fibrillation, I suspect with a low burden 3. 4.1 seconds offset pause upon termination of AF 4. Normal LV systolic function and minimal valvular disease 5. Coronary artery disease, stable Plan: 1. Continue amiodarone infusion until completion of protocol, may continue at 0.5mg/min until able to take PO. 2. Discontinue metoprolol 3. It is hoped that amiodarone will keep the patient sinus rhythm, and discontinuation of metoprolol prevent a longer offset pause if AFib were to recur and then again convert. 4. Suggest proceed with ERCP while in NSR 5. Event monitor as outpt to eval for afib burden appropriate. HARJIT OVIEDO NP August 14, 2024 07:07
--- NOTE | 2024-08-14 11:50 | HMCIMG ---
Exam Type: CHEST 1VW Clinical Information: eval for sob Comparison: None Findings: Status post median sternotomy. Ill-defined infiltrates of the right lower lobe are seen consistent with pneumonia. The heart is normal in size. The bony and soft tissue structures show no worrisome pathology. IMPRESSION: Findings consistent with pneumonia. Follow-up is advised.
--- NOTE | 2024-08-14 13:27 | PN ---
[facility] PROGRESS NOTE Date Patient Seen: August 14, 2024 Time of Visit: 13:27 Supervising Physician: Dr. Edelmira Jordan Primary Care Physician: Dr. Ryley Worley Outpatient Specialists: [ ] Inpatient Consults: [ ] PROBLEM LIST: New onset Atrial fibrillation Hypertensive emergency POA, resolved Acute cholecystitis POA. s/p lap puja 5/6 CAD with remote CABG Hyperlipidemia. Hypertension. Anxiety. Depression. Legally blind. INTERVAL HISTORY: Patient evaluated at bedside today, denies any acute distress at this time. She is currently in normal sinus rhythm, continues on amiodarone, metoprolol has been discontinued. Per Cardiology they recommend continuing with ERCP workup while patient remains in normal sinus rhythm, pending further recommendations from GI at this time. She remains on Rocephin and Flagyl. Currently on room air. Family at bedside updated with the current treatment plan and they are in agreement at this time. REVIEW OF SYSTEMS: 12 point ROS reviewed with patient. Pertinent positives mentioned above. Ot herwise negative. PHYSICAL EXAM: GENERAL: Alert, weak, awake oriented x 3 HEENT: EOMI, Sclera non icteric, moist mucosa NECK: Supple, no JVD, trachea midline LUNGS: Clear breath sounds bilaterally. No wheezes HEART: Regular rate and rhythm. Normal S1 and S2, without murmurs ABD: Abdomen soft, RUQ tender. Bowel sounds present EXT: No clubbing cyanosis or edema NEURO: Alert and oriented to person, follows commands Vital Signs (last 8hr) Date Time Temp Pulse Resp B/P (MAP) Pulse Ox O2 Delivery O2 Flow Rate FiO2 08/14/24 11:23 98.8 59 20 140/67 96 Room Air 08/14/24 08:00 97.5 61 20 139/63 96 Room Air LABS: Chemistry Labs: Test 08/14/24 05:34 08/12/24 19:58 Range/Units Whole Blood Glucose 170 H 70-110 MG/DL Troponin I High Sensitivity 334 *H 4-50 ng/L DIAGNOSTICS / RADIOLOGY RESULTS: [ ] PLAN Continue Rocephin, continue Flagyl Continue amiodarone infusion, transition to oral amiodarone per cardio guidance Pending cardiology clearance for surgery Pending ERCP once cleared Disposition TBD NEURO: Minimize central acting medications as possible. Maintain fall precautions, adequate lighting during the day PULMONARY: Supplemental 02 as needed. Maintain aspiration precautions at all times CARDIOVASCULAR: Follow hemodynamics. Vital signs per facility protocol GI & NUTRITION: Continue with nutritional support. Continue stool softeners and laxatives as needed. KIDNEYS & ELECTROLYTES: Strict monitoring of intake, output and overall fluid balance. Avoid nephrotoxic medications to the extent possible. Medications to be dosed according to renal function. Monitor electrolytes and replace as needed ENDOCRINE: Maintain blood glucose between 100-180 at all times. Hypoglycemia protocol in place INFECTIOUS DISEASE: Trend temperature, WBC and procalcitonin level Follow cultures, deescalate antibiotics as soon as possible. Panculture if new onset fever ONCOLOGY/HEMATOLOGY/COAGULATION: Monitor for s/s of bleeding Monitor hemoglobin, coagulation studies as needed SKIN: Pressure ulcer prevention per facility protocol Specialty mattress ORTHO/REHAB: Continue PT/OT Prophylaxis: Continue GI and DVT prophylaxis Code Status: Full Resuscitation Disposition: Med/Surg Other: Total patient care time exceeds 52 minutes excluding all procedures. JULIANNE RICO August 14, 2024 13:27
--- NOTE | 2024-08-14 15:20 | NUR ---
Dank ARSHAD notified that DR Brady can do an ERCP on pt due to previous gastric by pass and will be out of town for the next week new orders given
--- NOTE | 2024-08-14 17:11 | HMCIMG ---
Fluoroscopic guidance History: CHOLANGIOGRAM W/IOC'S Fluoroscopic guidance provided. Procedure by ordering physician in operating room suite with fluoroscopic guidance. Several spot images were obtained. Impression: Fluoroscopic guidance.
--- NOTE | 2024-08-14 18:00 | NUR ---
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
--- NOTE | 2024-08-14 20:49 | CONS ---
GASTROENTEROLOGY CONSULTATION NOTE Date of Consultation: August 14, 2024 Time of Consultation: 20:49 History of Present Illness: This is a 68-year-old female with past medical history of hypertension, hyperlipidemia, anxiety, depression, legally blind. She had cholecystectomy on 08/11/2024 which revealed choledocholithiasis on IOC. She has been planned for ERCP however was pending cardiac clearance which is obtained. Review of Systems: CONSTITUTIONAL: No malaise or change in sensation of wellbeing. ENMT: No rhinorrhea, otorrhea, sinus pain, ear ache. CARDIOVASCULAR: No angina, palpitations, orthopnea or paroxysmal dyspnea. RESPIRATORY: No SOB. GASTROINTESTINAL: No abdominal pain, nausea, vomiting, diarrhea, hematemesis, melena or change in the patient's habitual bowel movements consistency/number. GENITOURINARY: No dysuria, hematuria or change in bladder continence. MUSCULOSKELETAL: No new muscle pain or decrease in muscular strength. No new joint swelling, redness or tenderness. SKIN: No new rash. Past Medical History: [ ] Past Surgical History: [ ] Past Social History: [ ] Family History: [ ] Coded Allergies: Captopril (Unverified Allergy, ANAPHYLAXIS, 03/07/12) Penicillin V (Unverified Allergy, SWELLING, 03/07/12) tramadol (Unverified Adverse Reaction, Severe, VIOLENT HALLUCINATIONS, 03/07/12) Physical Exam: GEN: Awake, alert, oriented in person, time and place, and in no acute distress. HEENT: No sinus tenderness. Tympanic membranes were not examined. No rhinorrhea. Oral pharyngeal mucosa is pink, moist and within normal limits. Neck is supple with no cervical lymphadenopathy, thyromegaly or JVD. CHEST: Inspection, palpation and percussion of the chest were unremarkable. Lung auscultation revealed normal breath sounds bilaterally. CARDIAC: PMI is within normal limits. Heart sounds are regular. Normal S1, S2. No gallop or murmur. ABD: Soft, non-tender and not distended. No peritoneal signs on palpation. No organomegaly. Normal bowel sounds. EXT: No cyanosis or clubbing. No edema. SKIN: Intact. No rashes. JOINTS: No evidence of synovitis or acute arthritis. NEURO: Alert and oriented to name, place and person. Cranial nerve examination is unremarkable. No focal motor deficits. Normal speech. Gait is normal. Strength is normal. Vital Sign (Last 24 Hours) 08/13/24 08/14/24 19:40 16:00 Temp 98.6 Pulse 56 Resp 20 B/P (MAP) 145/68 Pulse Ox 96 O2 Delivery Room Air O2 Flow Rate 0 FiO2 21 Intake & Output (last 24hrs) 08/13/24 08/13/24 08/14/24 15:00 23:00 07:00 Intake Total 500 ml 250 ml Balance 500 ml 250 ml Laboratory: [ ] Laboratory: Test 08/14/24 20:34 Range/Units Whole Blood Glucose 181 H 70-110 MG/DL Current Medications Medications (Trade) Dose Ordered Sig/Stephen Route PRN Reason Start Time Stop Time Status Last Admin Dose Admin Acetaminophen (TYLenol 650MG SUPPOSITORY) 650 mg Q6H PRN RC FEVER / MILD PAIN 1-3 IF NPO 08/09/24 10:00 09/08/24 09:59 Amiodarone HCl (pacERONE 200MG) 200 mg DAILY PO 08/15/24 09:00 09/14/24 08:59 Amiodarone HCl 150 mg/Dextrose 100 ml @ 0 mls/hr PROTOCOL IV 08/12/24 20:00 08/12/24 19:52 DC Amiodarone HCl 150 mg/Dextrose 100 ml @ 0 mls/hr PROTOCOL IV 08/12/24 20:30 08/13/24 14:09 DC Amiodarone HCl 360 mg/Dextrose 200 ml @ 0 mls/hr PROTOCOL IV 08/12/24 20:00 08/12/24 19:53 DC Amiodarone HCl 360 mg/Dextrose 200 ml @ 0 mls/hr PROTOCOL IV 08/12/24 20:30 08/13/24 14:09 DC Amiodarone HCl 540 mg/Dextrose 300 ml @ 0 mls/hr PROTOCOL IV 08/12/24 20:00 09/11/24 19:59 08/13/24 03:55 16.7 MLS/HR Amlodipine Besylate (NorvASC 5MG TAB) 5 mg DAILY PO 08/13/24 09:00 08/12/24 19:52 DC Atorvastatin Calcium (LIPItor 20MG) 20 mg DAILY PO 08/13/24 09:00 08/13/24 14:10 DC 08/13/24 10:09 20 MG Atorvastatin Calcium (LIPItor 20MG) 20 mg HS PO 08/14/24 21:00 09/12/24 08:59 Buspirone HCl (BUspar) 15 mg BID PO 08/12/24 21:00 09/11/24 20:59 08/14/24 16:27 15 MG Ceftriaxone Sodium (ROCEphine 1G INJ) 1 gm Q24H IVP 08/09/24 10:00 08/10/24 10:18 DC 08/10/24 08:57 1 GM Ceftriaxone Sodium (Rocephin 2gm Inj) 2 gm Q24H IVPB 08/12/24 17:30 08/22/24 17:29 08/14/24 18:08 2 GM Citalopram Hydrobromide (CeleXA 20MG TAB) 20 mg DAILY PO 08/13/24 09:00 09/12/24 08:59 08/13/24 10:30 20 MG Dextrose (D50w) 50 ml AD PRN IV HYPOGLYCEMIA PROTOCOL 08/09/24 10:00 09/08/24 09:59 08/09/24 10:09 50 ML Dextrose/Sodium Chloride 1,000 ml @ 100 mls/hr Q10H IV 08/09/24 16:30 09/08/24 16:29 08/14/24 18:18 100 MLS/HR Gabapentin (NEURontin 100 mg CAP) 100 mg HS PO 08/12/24 21:00 09/11/24 20:59 08/13/24 20:25 100 MG Glucagon (Glucagon 1mg Kit) 1 mg AD PRN IM HYPOGLYCEMIA PROTOCOL 08/09/24 10:00 09/08/24 09:59 Hydralazine HCl (APRESOLine 20MG INJ) 10 mg Q6H PRN IV SBP GREATER THAN 180 08/09/24 10:00 09/08/24 09:59 Hydralazine HCl ([id number] TAB) 25 mg BID PO 08/12/24 21:00 08/12/24 19:52 DC Hydromorphone HCl (DiLAUDid 1MG INJ) 1 mg Q4H PRN IVP SEVERE PAIN (7-10) 08/09/24 10:00 08/14/24 09:59 DC 08/12/24 03:31 1 MG Insulin Human Regular (humuLIN R 100 UNIT/ML 3ML) INSULIN SLIDING SCAL... ACHS SQ 08/09/24 11:30 09/08/24 11:29 08/14/24 18:16 3 UNIT Lactated Ringer's (Lactated Ringers 1000ml) 1,000 ml ONCE IV 08/09/24 01:30 08/11/24 08:29 DC 08/09/24 01:47 1,000 ML Levofloxacin/ Dextrose (LEvaquIN 750 MG/ D5W 150 ML) 750 mg Q24H IV 08/10/24 10:30 08/11/24 08:31 DC 08/10/24 11:43 750 MG Levofloxacin/ Dextrose (LEvaquIN 750 MG/ D5W 150 ML) 750 mg Q48H IV 08/12/24 12:00 08/12/24 17:16 DC 08/12/24 14:13 750 MG Magnesium Sulfate 50 ml @ 0 mls/hr PROTOCOL PRN IV MAGNESIUM PROTOCOL 08/09/24 10:00 09/08/24 09:59 08/10/24 09:20 25 MLS/HR Metoprolol Tartrate (loprESSOR) 12.5 mg TID PO 08/12/24 21:00 08/13/24 12:22 DC 08/13/24 10:09 12.5 MG Metronidazole/ Sodium Chloride (flaGYL) 500 mg Q8H IV 08/10/24 10:30 08/13/24 17:57 DC 08/13/24 13:20 500 MG Metronidazole/ Sodium Chloride (flaGYL) 500 mg Q8H IV 08/13/24 20:00 08/23/24 19:59 08/14/24 16:27 500 MG Morphine Sulfate (morPHINE 2MG SYG) 1 mg Q3H PRN IVP PAIN LEVEL 4 TO 6 08/11/24 20:00 08/18/24 19:59 08/12/24 12:18 1 MG Morphine Sulfate (morPHINE 2MG SYG) 2 mg Q4H PRN IVP MODERATE PAIN (4-6) 08/09/24 10:00 08/11/24 15:47 DC 08/09/24 14:46 2 MG Ondansetron HCl (zoFRAN 4MG INJ) 4 mg Q6H PRN IVP NAUSEA/VOMITING 08/09/24 10:00 09/08/24 09:59 08/11/24 19:15 4 MG Potassium Chloride 100 ml @ 50 mls/hr AD PRN IV POTASSIUM PROTOCOL 08/09/24 10:00 09/08/24 09:59 08/10/24 20:45 50 MLS/HR Sodium Chloride 1,000 ml @ 100 mls/hr Q10H IV 08/09/24 10:00 08/09/24 16:24 DC 08/09/24 12:05 100 MLS/HR Diagnostics / Radiology: [COPY/PASTE HERE IF NO REPORTS PLEASE DELETE SECTION] Assessment: Choledocholithiasis Plan: ERCP Saturday by Dr. Mckeon Continue GI prophylaxis Advance diet as tolerated Avoid NSAIDs Antireflux measures Monitor H&H and transfuse as needed Call with questions, concerns or change in clinical status Patient to follow-up at clinic post discharge Thank you for this consult MAURO WESTON CAN SLIDER August 14, 2024 20:49
[2024-08-14] MEDS: atorVAStatin 20 MG TABLET PO SCH (21:55)
[2024-08-15] VITALS (8 sets, daily range): BP systolic 124–169; BP diastolic 58–67; PULSE 58–66; RESP 17–18; TEMP 97.7–98.2; O2SAT 97
[2024-08-15 06:12] LABS: HEMATOCRIT 30.1 % (36-48); MEAN CORPUSCULAR HEMOGLOBIN 29.7 pg (27.0-33.0); MEAN CORPUSCULAR HGB CONC 31.9 g/dL (32.0-36.0); MEAN CORPUSCULAR VOLUME 93.2 fL (79-99); RED BLOOD CELL COUNT(AUTO) 3.23 MIL/uL (4.00-5.50); RED CELL DISTRIBUTION WIDTH 15.3 % (11.0-15.5); WHITE BLOOD COUNT (AUTO) 7.1 K/uL (4.8-10.8)
[2024-08-15 06:20] LABS: CREATININE 0.9 mg/dL (0.5-1.0); POTASSIUM 3.4 mmol/L (3.5-5.1)
[2024-08-15 07:43] LABS: ALBUMIN 1.8 g/dL (3.5-5.0); BILIRUBIN,TOTAL 0.3 mg/dL (0.2-1.0); TOTAL PROTEIN, SERUM 5.1 g/dL (6.0-8.3)
[2024-08-15] MEDS: AMIOdarone 200 MG TABLET PO SCH (10:00)
--- NOTE | 2024-08-15 10:08 | HMCIMG ---
Exam Type: CT ABDOMEN/PELVIS W/O CONTRAST Clinical Information: ABD PAIN VERIFY PT HAD GASTRIC BY PASS Comparison: None CT Dose Index (CTDI): 10.20 mGy Dose Length Product (DLP): 530.00 total mGy-cm PROTOCOL: Routine noncontrast helical scanning of the abdomen and pelvis was performed at 5mm collimation. Findings: No evidence of nephro or ureterolithiasis is found. No hydronephrosis or ureteral dilatation is seen. Status post median sternotomy. Bilateral small pleural effusions. Bilateral basal pulmonary infiltrates consistent with pneumonia. Follow-up is advised. Postsurgical changes of the stomach seen. The spleen is unremarkable. It is not enlarged. The pancreas shows normal anatomy. It is not fatty replaced. It shows no lesions. The pancreatic duct is not dilated. The gallbladder is surgically absent. There is a fluid and air pocket within the gallbladder fossa measuring 7.4 cm. The possibility of a developing gallbladder fossa abscess must be entertained. The adrenal glands are unremarkable. There is no enlargement. No lesions are noted. The liver is unremarkable. It shows no focal masses. The appendix is unremarkable. It shows no evidence of inflammation. No appendicolith is seen. The small bowel is unremarkable. There is no evidence of dilatation to suggest obstruction. No evidence of adynamic ileus is seen. There is no small bowel wall thickening to suggest enteritis. The colon is unremarkable. Urinary bladder is distended. The other pelvic structures are unremarkable. The bony and vascular structures are unremarkable for the patient's age. There is moderate anasarca. There is trace ascites. IMPRESSION: Status post median sternotomy. Bilateral small pleural effusions. Bilateral basal pulmonary infiltrates consistent with pneumonia. Follow-up is advised. The gallbladder is surgically absent. There is a fluid and air pocket within the gallbladder fossa measuring 7.4 cm. The possibility of a developing gallbladder fossa abscess must be entertained. This study was performed using dose reduction techniques to include automated exposure control and/or adjustment of the mA and/or kV according to patient size.
[2024-08-15] MEDS: DIPHENOXYLATE HCL/ATROPINE 2.5/0.025 MG TAB PO PRN (10:48)
--- NOTE | 2024-08-15 11:51 | PN ---
[facility] Cardiology Progress Note CARDIOLOGY PROGRESS NOTE AUGUST 15, 2024 Problems: 1. Paroxysmal atrial fibrillation with 4.1 seconds pause when converting to sinus rhythm 2. Cholelithiasis status post recent cholecystectomy with concern for retained stone in the common bile duct 3. CAD status post remote aortocoronary bypass graft surgery x4 with patent grafts and recent left heart catheterization 4. Diabetes mellitus type 2 5. Dyslipidemia 6. Hypertension 7. Obstructive sleep apnea not on CPAP therapy 8. Blindness The patient has been taken off metoprolol and with a loaded with IV amiodarone protocol. This morning blood pressure is running 150 to 170s systolic heart rate is in the 60s and the patient is afebrile. White count 7.1 hemoglobin 9.6 platelet count [id number] potassium 3.4 BUN 35 creatinine 0.9. The patient continues on amiodarone orally 200 mg daily atorvastatin antibiotics insulin scale. She is scheduled tentatively for ERCP Saturday with Dr. Mckeon. Currently the patient is resting comfortably flat. She remains in sinus rhythm. There are any breakthrough arrhythmias her amiodarone can be increased to b.i.d. dosing. She had been on amlodipine 5 mg daily at home for blood pressure control. We will plan on restarting this medication today. She was on rivaroxaban 20 mg daily which is on hold in preparation for ERCP. This can be restarted at discharge. Again there was no contraindication to the ERCP as planned. FABIAN HYMAN MD August 15, 2024 11:51
--- NOTE | 2024-08-15 11:54 | PN ---
[facility] CARDIOLOGY PROGRESS NOTE Date Patient Seen: August 15, 2024 Time of Visit: 11:41 Interval History: This 68-year-old Latin-[place] female, patient of Dr. Nataliia Gannon, has a history of essential hypertension, type 2 diabetes mellitus, stage II chronic renal insufficiency, paroxysmal atrial fibrillation on chronic Xarelto anticoagulation, mild mitral stenosis and trivial aortic stenosis by 2D echo 04/23/2024, pulmonary hypertension, blindness, obesity status post gastric bypass approximately 2021, and coronary artery disease status post remote coronary artery bypass grafting x4 vessels 11/10/2009 with sequential saphenous vein graft to the diagonal-2 and LAD, curtis graft to the OM1, and radial graft to the PDA who is status post recent follow-up cardiac catheterization 07/23/2024 demonstrating 4/4 grafts patent, minimal aortic stenosis, and an ejection fraction of 60% by a recent 2D echocardiogram 04/23/2024. She was admitted for cholecystectomy which she underwent laparoscopically 08/11/2024. On 08/12/2024, she was noted to be in atrial fibrillation with rapid ventricular response. She was not on any beta-mulu medications presumably due to underlying mild sinus bradycardia which has been documented in our office notes. She underwent initiation of IV amiodarone bolus plus infusion. Nearly morning hours of 08/13/2024, she converted to a sinus rhythm with a conversion pause of 4.1 seconds. Beta mulu was avoided and she was continued on IV amiodarone which has now been discontinued and transitioned to amiodarone 200 mg p.o. daily. Plans for ERCP have been canceled as the patient's LFTs have normalized and she has had no recurrent abdominal pain. She will be resumed on diet today. She has been hypertensive and her antihypertensive drug therapy is yet to be resumed. Telemetry has demonstrated a normal sinus rhythm with heart rate in the 60 beat per minute range. Current medications include: Amiodarone 200 mg daily, atorvastatin 20 mg q.h.s., Flagyl 500 mg IV q.8 hours, Celexa 20 mg daily, Rocephin 2 g IV Q 24 hours, Home medications included hydralazine 25 mg p.o. b.i.d., amlodipine 5 mg p.o. daily and pravastatin 80 mg p.o. daily Physical Examination: GENERAL: No acute distress. HEAD: Normal with no signs of head trauma. EYES: PERRLA, EOMI, conjunctiva and sclera normal. NECK: Supple without JVD. There is no tenderness, lymphadenopathy, or masses. No thyromegaly. Normal carotid upstrokes without bruits. LUNGS: Fine rales at the bases/atelectatic breath sounds HEART: Normal rate and rhythm. Normal S1 and S2 2/6 early peaking systolic ejection murmur at the left upper sternal border. ABD: Soft, nontender and bowel sounds present VASC: Peripheral pulses +2 bilaterally. EXT: No clubbing, cyanosis or edema. NEURO: Awake, alert, and oriented x3. No focal neurological deficits noted. Laboratory: Hematology Labs: Test 08/15/24 05:28 Range/Units White Blood Count 7.1 4.8-10.8 K/uL Red Blood Count 3.23 L 4.00-5.50 MIL/uL Hemoglobin 9.6 L 12.0-16.0 g/dL Hematocrit 30.1 L 36-48 % Mean Corpuscular Volume 93.2 79-99 fL Mean Corpuscular Hemoglobin 29.7 27.0-33.0 pg Mean Corpuscular Hemoglobin Concent 31.9 L 32.0-36.0 g/dL Red Cell Distribution Width 15.3 11.0-15.5 % Platelet Count 185 130-400 K/uL Mean Platelet Volume 12.2 H 7.5-10.5 fL Nucleated Red Blood Cells 0.0 0.0-0.19 % Chemistry Labs: Test 08/15/24 10:59 08/15/24 05:28 Range/Units Whole Blood Glucose 191 H 70-110 MG/DL Sodium Level 142 136-145 mmol/L Potassium Level 3.4 L 3.5-5.1 mmol/L Chloride Level 111 101-111 mmol/L Carbon Dioxide Level 22 21-32 mmol/L Blood Urea Nitrogen 35 H 7-18 mg/dL Creatinine 0.9 0.5-1.0 mg/dL Glomerular Filtration Rate Calc 71 >90 mL/min Random Glucose 165 H 70-105 mg/dL Total Calcium 7.9 L 8.5-10.1 mg/dL Total Bilirubin 0.3 0.2-1.0 mg/dL Aspartate Amino Transf (AST/SGOT) 18 10-37 U/L Alanine Aminotransferase (ALT/SGPT) 21 12-78 U/L Alkaline Phosphatase 152 H 50-136 U/L Total Protein 5.1 L 6.0-8.3 g/dL Albumin 1.8 L 3.5-5.0 g/dL Diagnostics / Radiology: 2D echocardiogram 04/23/2024: Conclusion Left ventricular cavity size is normal. LVEF is 60%. Grade 3 diastolic dysfunction. The right ventricle is moderately dilated. Right ventricular systolic function is mildly to moderately reduced. The left atrium is severely dilated. The right atrium is moderately dilated. Aortic valve is trileaflet, with a calcified left coronary leaflet that exhibits decreased excursion. Mild aortic regurgitation. Mild to moderate aortic stenosis with a calculated aortic valve area is 1.3 cm2 with maximum pressure gradient of 22.3 mmHg and mean pressure gradient of 10.9 mmHg. Mitral valve leaflets are mildly calcified. Severe posterior mitral annular calcification. Mitral regurgitation is mild. Mild to moderate calcific, non-rheumatic mitral stenosis with a calculated mitral valve area is 1.4 cm2 with maximum pressure gradient of 13.2 mmHg and mean pressure gradient of 3 mmHg. There is moderate tricuspid regurgitation. Right ventricular systolic pressure is estimated at 50-60 mmHg. There is trace to mild valvular regurgitation. The aortic root is normal in size. The IVC is normal in size and collapses >50% with inspiration. No pericardial effusion.here] Impression and Plan: Paroxysmal atrial fibrillation, with rapid ventricular response in the 120-130 beat per minute range intermittently postoperative day one status post laparoscopic cholecystectomy: Status post amiodarone bolus plus infusion with conversion to a normal sinus rhythm 08/13/2024 with a post-conversion pause of 4.1 seconds -continue amiodarone 200 mg p.o. daily -beta mulu has been withdrawn and we will observe heart rate response with amiodarone alone -consider outpatient cardiac mobile seam stay stitcher to assess atrial fibrillation burden Long-term Xarelto anticoagulation: -resume Xarelto when cleared by surgery Hypertension: -resume home amlodipine 5 mg p.o. daily -chest x-ray this morning demonstrates cardiomegaly and possible infiltrate versus CHF changes primarily right-sided -Check a BNP and give furosemide 20 mg IV x1 dose today Mild mitral stenosis and trivial aortic stenosis by 2D echo 04/23/2024: Stage III diastolic dysfunction by 2D echo 04/23/2024: Moderate pulmonary hypertension with RV systolic pressure of 50-60 millimeter of mercury by 2D echo 04/23/2024: -SBE prophylaxis prior to any dirty procedures CAD s/p CABG x4 vessels 11/10/2009 with sequential saphenous vein graft to the diagonal-2 and LAD, curtis graft to the OM1, and radial graft to the PDA who is status post recent follow-up cardiac catheterization 07/23/2024 demonstrating 4/4 grafts patent, and minimal aortic stenosis: -cardiac status is stable Comorbidities: Type 2 diabetes mellitus Stage II chronic renal insufficiency Blindness Obesity status post remote gastric bypass ELIZABETH KHOURYP August 15, 2024 11:54
--- NOTE | 2024-08-15 12:44 | PN ---
[facility] PROGRESS NOTE Date Patient Seen: August 15, 2024 Time of Visit: 12:44 Supervising Physician: Dr. Alan Salgado Primary Care Physician: Dr. Ryley Worley Outpatient Specialists: [ ] Inpatient Consults: [ ] PROBLEM LIST: New onset Atrial fibrillation Hypertensive emergency POA, resolved Acute cholecystitis POA. s/p lap puja 5/6 CAD with remote CABG Hyperlipidemia. Hypertension. Anxiety. Depression. Legally blind. INTERVAL HISTORY: Patient evaluated at bedside, present at the time. Due to her gastric bypass patient was unable to receive ERCP at this time, surgical team has ordered a CT scan of the abdomen and pelvis, we will continue to follow the patient as she advances through her diet, tolerating well, no nausea or vomiting reported. Patient's LFTs remained normal at this time. She continues on Rocephin and Flagyl as well as amiodarone for new onset atrial fibrillation. Patient expressed some concern over diarrhea, Lomotil has been added to her chart. We will continue to follow the patient's labs we will clinical presentation to further determine if ERCP is necessary. REVIEW OF SYSTEMS: 12 point ROS reviewed with patient. Pertinent positives mentioned above. Otherwise negative. PHYSICAL EXAM: GENERAL: Alert, weak, awake oriented x 3 HEENT: EOMI, Sclera non icteric, moist mucosa NECK: Supple, no JVD, trachea midline LUNGS: Clear breath sounds bilaterally. No wheezes HEART: Regular rate and rhythm. Normal S1 and S2, without murmurs ABD: Abdomen soft, RUQ tender. Bowel sounds present EXT: No clubbing cyanosis or edema NEURO: Alert and oriented to person, follows commands Vital Signs (last 8hr) Date Time Temp Pulse Resp B/P (MAP) Pulse Ox O2 Delivery O2 Flow Rate FiO2 08/15/24 11:00 97.9 64 17 167/65 97 Room Air 08/15/24 10:13 97 Room Air* 0 21 08/15/24 07:00 97.7 66 18 169/67 98 Room Air LABS: Hematology Labs: Test 08/15/24 05:28 Range/Units White Blood Count 7.1 4.8-10.8 K/uL Red Blood Count 3.23 L 4.00-5.50 MIL/uL Hemoglobin 9.6 L 12.0-16.0 g/dL Hematocrit 30.1 L 36-48 % Mean Corpuscular Volume 93.2 79-99 fL Mean Corpuscular Hemoglobin 29.7 27.0-33.0 pg Mean Corpuscular Hemoglobin Concent 31.9 L 32.0-36.0 g/dL Red Cell Distribution Width 15.3 11.0-15.5 % Platelet Count 185 130-400 K/uL Mean Platelet Volume 12.2 H 7.5-10.5 fL Nucleated Red Blood Cells 0.0 0.0-0.19 % Chemistry Labs: Test 08/15/24 10:59 08/15/24 05:28 Range/Units Whole Blood Glucose 191 H 70-110 MG/DL Sodium Level 142 136-145 mmol/L Potassium Level 3.4 L 3.5-5.1 mmol/L Chloride Level 111 101-111 mmol/L Carbon Dioxide Level 22 21-32 mmol/L Blood Urea Nitrogen 35 H 7-18 mg/dL Creatinine 0.9 0.5-1.0 mg/dL Glomerular Filtration Rate Calc 71 >90 mL/min Random Glucose 165 H 70-105 mg/dL Total Calcium 7.9 L 8.5-10.1 mg/dL Total Bilirubin 0.3 0.2-1.0 mg/dL Aspartate Amino Transf (AST/SGOT) 18 10-37 U/L Alanine Aminotransferase (ALT/SGPT) 21 12-78 U/L Alkaline Phosphatase 152 H 50-136 U/L B-Type Natriuretic Peptide 632 H 0-100 pg/mL Total Protein 5.1 L 6.0-8.3 g/dL Albumin 1.8 L 3.5-5.0 g/dL DIAGNOSTICS / RADIOLOGY RESULTS: [ ] PLAN Continue Rocephin, continue Flagyl Continue amiodarone infusion, transition to oral amiodarone per cardio guidance Pending cardiology clearance for surgery Pending ERCP once cleared Disposition TBD NEURO: Minimize central acting medications as possible. Maintain fall precautions, adequate lighting during the day PULMONARY: Supplemental 02 as needed. Maintain aspiration precautions at all times CARDIOVASCULAR: Follow hemodynamics. Vital signs per facility protocol GI & NUTRITION: Continue with nutritional support. Continue stool softeners and laxatives as needed. KIDNEYS & ELECTROLYTES: Strict monitoring of intake, output and overall fluid balance. Avoid nephrotoxic medications to the extent possible. Medications to be dosed according to renal function. Monitor electrolytes and replace as needed ENDOCRINE: Maintain blood glucose between 100-180 at all times. Hypoglycemia protocol in place INFECTIOUS DISEASE: Trend temperature, WBC and procalcitonin level Follow cultures, deescalate antibiotics as soon as possible. Panculture if new onset fever ONCOLOGY/HEMATOLOGY/COAGULATION: Monitor for s/s of bleeding Monitor hemoglobin, coagulation studies as needed SKIN: Pressure ulcer prevention per facility protocol Specialty mattress ORTHO/REHAB: Continue PT/OT Prophylaxis: Continue GI and DVT prophylaxis Code Status: Full Resuscitation Disposition: Med/Surg Other: Total patient care time exceeds 52 minutes excluding all procedures. JULIANNE RICO August 15, 2024 12:44
[2024-08-15] MEDS: furoSEMIDE 20MG VIAL IV ONE (15:46)
[2024-08-15] MEDS: amLODIPine 5 MG TAB PO SCH (15:46)
[2024-08-15] MEDS: 0.9%NACL 1000ML 1,000 ML IV SCH (15:54)
[2024-08-15] MEDS ORDERED: PoTASSium chl 10% ELIXIR 20MEQ 20 MEQ/15 ML UDCUP PO PRN (18:30)
[2024-08-15] MEDS: PoTASSium chloRIDE 20MEQ ER 20 MEQ ERTAB PO PRN (20:37)
--- NOTE | 2024-08-16 02:13 | NUR ---
nurse note patient alert and oriented times 3. patient is legally blind. plan of care discussed with her and she verbalized understanding. patient is on a purewick. her urine is dark brown. She has not had any pain tonight. She has slept about 6 hours tonight. She calls for assistance to turn off the tv or to drink water or when she wants us to move her on her sides. Call light within reach, bed alarm on, 2 side rails up. will continue to monitor patient.
[2024-08-16 04:00] VITALS: BP 141/59; PULSE 61; RESP 18; TEMP 98.6
[2024-08-16 04:18] VITALS: BP 141/59; PULSE 61; RESP 18; TEMP 98.2
[2024-08-16 04:25] LABS: HEMATOCRIT 28.9 % (36-48); MEAN CORPUSCULAR HGB CONC 32.9 g/dL (32.0-36.0); MEAN CORPUSCULAR VOLUME 91.2 fL (79-99); RED BLOOD CELL COUNT(AUTO) 3.17 MIL/uL (4.00-5.50); RED CELL DISTRIBUTION WIDTH 15.2 % (11.0-15.5); WHITE BLOOD COUNT (AUTO) 9.9 K/uL (4.8-10.8)
[2024-08-16 04:37] LABS: ALBUMIN 1.8 g/dL (3.5-5.0); BILIRUBIN,DIRECT 0.1 mg/dL (0.0-0.3); BILIRUBIN,TOTAL 0.2 mg/dL (0.2-1.0); POTASSIUM 4.1 mmol/L (3.5-5.1)
[2024-08-16 08:00] VITALS: BP 159/70; PULSE 62; RESP 16; TEMP 97.8
[2024-08-16] MEDS ORDERED: amLODIPine 5 MG TAB PO SCH (09:00)
[2024-08-16 12:00] VITALS: BP 123/56; PULSE 66; RESP 16; TEMP 98.4
--- NOTE | 2024-08-16 12:25 | PN ---
[facility] Cardiology Progress Note Cardiology progress note dictated for Fabian Ariza MD Date of service 08/16/2024 Problem list: Paroxysmal atrial fibrillation rapid ventricular response Status post laparoscopic cholecystectomy 08/11/2024 Anticoagulated with Xarelto (currently on hold) Hypertension 2D echocardiogram April 23, 2024 left ventricular ejection fraction 60% with grade 3 diastolic dysfunction, mild mitral stenosis and trivial aortic stenosis CAD s/p CABG x4 vessels 11/10/2009 with sequential saphenous vein graft to the diagonal-2 and LAD, curtis graft to the OM1, and radial graft to the PDA. Left heart catheterization [id number] grafts patent and minimal aortic stenosis Type 2 diabetes mellitus Stage II chronic renal insufficiency Blindness Obesity status post remote gastric bypass Review of blood work: CBC with hemoglobin of 9.5 hematocrit 28.9 white blood cells of nine, platelets of 217. Basic metabolic panel with a sodium of 144, potassium 4.1 BUN of 30 creatinine of 1.0 and a GFR of 62. Review of current medications: Amlodipine 5 mg daily, amiodarone 200 mg p.o. daily, atorvastatin 20 mg daily, IV antibiotics. Assessment/plan: 68-year-old female presented for cholecystectomy which she underwent 08/11/2024. Cardiology consult was requested due to atrial fibrillation with rapid ventricular response. Patient has a history of atrial fibrillation and on anticoagulation at home with Xarelto. She was given IV amiodarone and converted to a sinus rhythm. She is now on amiodarone 200 mg p.o. daily. Blood pressure 159/70 heart rate of 62 beats per minute, BBS clear. Telemetry sinus rhythm. Cardiac quigley she can be discharged when approved by PMD. She can follow up with Dr Gannon in 7-10 days. As there are no current plans for ERCP the patient can resume her home dose of Xarelto he will need a prescription for amiodarone 200 mg daily. ATTESTATION BY PHYSICIAN I have seen and examined the patient. I reviewed the documentation, medical decision making, and treatment plan as noted by the mid-level provider above. I agree with the findings and plan of care. FABIAN ARIZA MD, MARTINA [facility] August 16, 2024 12:25 FABIAN ARIZA MD August 16, 2024 12:38
[2024-08-16] MEDS ORDERED: AMIO200T68 PO (12:40)
--- NOTE | 2024-08-16 13:20 | DS ---
[facility] DISCHARGE SUMMARY Date Patient Seen: August 16, 2024 Time of Visit: 13:19 Supervising Physician: Dr. Alan Salgado Primary Care Physician: Dr. Ryley Worley Outpatient Specialists: [ ] Inpatient Consults: [ ] HOSPITAL COURSE: HPI (per admitting provider) This is a 68-year-old female with a history of HTN, HDL, anxiety, depression, legally blind and vertigo. She also has a history of gallbladder disease and was being worked up in the outpatient setting undergo cholecystectomy at a later date by Dr. Villagran. Unfortunately, the patient began experiencing severe mid epigastric pain with associated nausea and vomiting approximately 8 hours prior to her admission reason why she decided to come into the emergency department for further evaluation and management of her condition. Upon initial workup in the emergency department, initial vital signs did not show any febrile events. Blood pressure reading was significantly elevated on entry 206/70 and is on room air. Laboratory data showed no significant changes of concern. Urinalysis was not concerning for urinary tract infection. Imaging showed a abdominal ultrasound that was significant for sled material in the gallbladder, common duct measuring 9 mm and tiny pericholecystic fluid. There was no hydronephrosis seen. The patient was medicated overnight receiving Dilaudid for a total of 3 mg and was now very obtunded during my visit and minimally interactive. Per the staff nurse, no acute events since admission. The general surgeon was contacted by the ER physician. No other complaint. The patient was treated for the following problems: Patient evaluated upon admission for acute cholecystitis, with cholecystectomy performed on 08/11. Patient was unable to receive ERCP on this admission due to history of gastric bypass. As well patient was evaluated by Cardiology throughout this admission for new onset atrial fibrillation with which she was discharged a new prescription for amiodarone as well as follow up with Cardiology, surgery as well as GI. Patient advised of the course of her current treatment plan once she is discharged in expressed understanding and agreement. ACTIVE PROBLEM LIST FOR THE HOSPITALIZATION: New onset Atrial fibrillation Hypertensive emergency POA, resolved Acute cholecystitis POA. s/p lap puja 5/6 CHRONIC PROBLEMS: continue previous management per PCP unless otherwise indicated CAD with remote CABG Hyperlipidemia. Hypertension. Anxiety. Depression. Legally blind. 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 PCP notified of patients admission, hospital course and discharge. PHYSICAL EXAM: GENERAL: Alert, weak, awake oriented x 3 HEENT: EOMI, Sclera non icteric, moist mucosa NECK: Supple, no JVD, trachea midline LUNGS: Clear breath sounds bilaterally. No wheezes HEART: Regular rate and rhythm. Normal S1 and S2, without murmurs ABD: Abdomen soft, RUQ tender. Bowel sounds present EXT: No clubbing cyanosis or edema NEURO: Alert and oriented to person, follows commands FOLLOW-UP: Follow-up with PCP in 2-3 days RECOMMENDATIONS: See Discharge Instructions This case was seen and discussed with my supervising physician. More than 30 minutes spent on discharge process, including evaluation of the patient, discussion with nursing staff, medication reconciliation and follow-up appointments JULIANNE RICO August 16, 2024 13:20
[2024-08-17] MEDS ORDERED: RIVAROXABAN 20 MG TABLET PO SCH (09:00)
== END 2024-08-16 16:56 | disposition home or self-care (01) | DRG 417 ==
LOC: EDH 00:29 → EDHIP 09:45 → 3AH 12:52 → 2DH 08-12 20:47
PROVIDERS: ADMIT Internal Medicine Critical Care Medicine; ATTEND Internal Medicine Critical Care Medicine
PROC: BF131ZZ Fluoroscopy of Gallbladder and Bile Ducts using Low Osmolar Contrast (ICD-10-PCS; 2024-08-11)
PROC: 0FT44ZZ Resection of Gallbladder, Percutaneous Endoscopic Approach (ICD-10-PCS; principal; 2024-08-11 16:40)
DX: K80.62 Calculus of gallbladder and bile duct with acute cholecystitis without obstruction (principal); J96.01 Acute respiratory failure with hypoxia; I16.1 Hypertensive emergency; N17.9 Acute kidney failure, unspecified; I48.0 Paroxysmal atrial fibrillation; F32.A Depression, unspecified; F41.9 Anxiety disorder, unspecified; H54.8 Legal blindness, as defined in USA; I10 Essential (primary) hypertension; E78.00 Pure hypercholesterolemia, unspecified; G47.33 Obstructive sleep apnea (adult) (pediatric); E66.9 Obesity, unspecified; D64.9 Anemia, unspecified; I12.9 Hypertensive chronic kidney disease with stage 1 through stage 4 chronic kidney disease, or unspecified chronic kidney disease; E11.22 Type 2 diabetes mellitus with diabetic chronic kidney disease; N18.2 Chronic kidney disease, stage 2 (mild); I25.10 Atherosclerotic heart disease of native coronary artery without angina pectoris; Z90.710 Acquired absence of both cervix and uterus; Z95.1 Presence of aortocoronary bypass graft; Z88.0 Allergy status to penicillin; Z90.721 Acquired absence of ovaries, unilateral; Z98.84 Bariatric surgery status; Z87.11 Personal history of peptic ulcer disease; Z83.3 Family history of diabetes mellitus; Z82.49 Family history of ischemic heart disease and other diseases of the circulatory system; Z79.01 Long term (current) use of anticoagulants; Z79.899 Other long term (current) drug therapy; Z88.8 Allergy status to other drugs, medicaments and biological substances; Z68.24 Body mass index [BMI] 24.0-24.9, adult
CPT/HCPCS: 36415; 71045; 74176; 74300; 76705; 80048; 80053; 80076; 80305; 81001; 82948; 83690; 83735; 83880; 84484; 85025; 85027; 93005; 99285; C1758; G0378; J0282; J0330; J0696; J1100; J1171; J1610; J1815; J1940; J1956; J2003; J2250; J2270; J2405; J2704; J2710; J3010; J3480; J3490; J7030; J7060; J7070; J7120; Q9967; A4649; A4930; J0283

== ENCOUNTER 2024-11-18 05:48 | Day surgery (SDC) | payer OTHER ==
[2024-11-16 13:18] LABS: IMMATURE GRANULOCYTE ABSOLUTE 0.02 K/uL (0-1); NUCLEATED RED BLOOD CELLS 0.0 % (0.0-0.19); PLATELET COUNT (AUTO) 205 K/uL (130-400); RED BLOOD CELL COUNT(AUTO) 3.21 MIL/uL (4.00-5.50); RED CELL DISTRIBUTION WIDTH 16.3 % (11.0-15.5); WHITE BLOOD COUNT (AUTO) 5.7 K/uL (4.8-10.8)
[2024-11-16 13:27] LABS: INR 1.05 (0.85-1.15)
[2024-11-16 13:30] LABS: ASPARTATE AMINOTRANSFERASE 30.0 U/L (10-37); CREATININE 1.6 mg/dL (0.5-1.0); GLOMERULAR FILTR. RATE CALC 35.0 mL/min (>90); GLUCOSE,RANDOM 67.0 mg/dL (70-105); SODIUM SERUM 139.0 mmol/L (136-145); TOTAL PROTEIN, SERUM 6.5 g/dL (6.0-8.3); UREA NITROGEN, BLOOD 31.0 mg/dL (7-18)
--- NOTE | 2024-11-16 13:47 | EKG ---
[facility] Test Date: 2024-11-16 Test Time: 13:06:48 Pat Name: PROMISE AUSTIN Department: [facility] Room: Gender: F Track Manager: [id number] : 1955 Requested By: STAR FRANCO Order Number: [id number] Reading MD: Zuhair Lockhart Measurements Intervals [place] Rate: 41 P: 16 IN: 236 QRS: 60 QRSD: 127 T: -15 QT: 533 QTc: 441 Interpretive Statements Sinus bradycardia Prolonged IN interval Probable left ventricular hypertrophy Inferior infarct, old Anterior Q waves, possibly due to LVH Electronically Signed On 11-16-2024 18:39:12 CDT by Zuhair Lockhart Please click the below link to view image of tracing.
[2024-11-16 13:50] VITALS: BP 124/66; PULSE 42; RESP 18; TEMP 97.6
[2024-11-18] VITALS (17 sets, daily range): BP systolic 122–141; BP diastolic 50–73; PULSE 49–93; RESP 15–20; TEMP 97–97.2
[~2024-11-18] VITALS: Ht 160 cm; Wt 70.8 kg
[~2024-11-18 05:48] MED LIST changes: +AMIO200T73 PO; +BUSP10TA3 PO; -BUSP15TA3 PO; -ESCI-8 PO; +ESCI20TA38 PO; +FURO20TA4 PO; -HYDR25 PO; +HYDR25TA67 PO; +PRAV40TA62 PO; -PRAV80TA21 PO
--- NOTE | 2024-11-18 06:30 | NUR ---
DEXTROSE SUGAR RESULT 46 AT 0623. GIVEN DEXTROSE 25G/50ML AT 0639. RECHECKED SUGAR AT [id number] RESULT.
[2024-11-18] MEDS: 0.9%NACL 1000ML 1,000 ML IV ONE (06:57)
[2024-11-18] MEDS: DEXTROSE 50%-WATER 50 ML DISP.SYRIN IV ONE ×2 (06:57→12:06)
[2024-11-18] MEDS ORDERED: MIDAZOLAM HCL 1 MG/ML 2ML VIAL ONE (07:04)
[2024-11-18] MEDS: INVANZ 1GM+NS 50ML IVPB 50 ML IV ONE (07:40)
[2024-11-18] MEDS ORDERED: IOHEXOL-350 50ML VIAL IV ONE (09:11)
[2024-11-18] MEDS ORDERED: INDOMETHACIN 100 MG SUPP.RECT RC ONE (10:30)
[2024-11-18] MEDS ORDERED: NEOSTIGMINE METHYLSULFATE 1MG/ML IV ONE (11:27)
[2024-11-18] MEDS ORDERED: GLYCOPYRROLATE 0.2 MG/ML 5 ML VIAL ONE (11:27)
--- NOTE | 2024-11-18 13:25 | NUR ---
Full and complete discharge instructions given to Patient and Family both verbally and in writing. Explained Surgical procedure precautions and follow up. Lap [place] incision sites clean dry and intact. No evidence of bleeding, bruising or hematoma. All questions answered. PIV removed with catheter tip intact. Family at bedside appearing supportive. W/C to POV with Family to home
--- NOTE | 2024-11-18 13:25 | OP ---
Operative Note: DATE OF PROCEDURE: 11/18/24 SURGEON: STAR FRANCO MD OFFSET PRESS ASSISTANT: [Please review operative record] ANESTHESIA: [General and local] ANESTHESIOLOGIST/HAND CARVER: [Please review operative record] PREOPERATIVE DIAGNOSIS: [Choledocholithiasis] POSTOPERATIVE DIAGNOSIS: [Same] SYNOPSIS: [Laparoscopic assisted ERCP, combo case with GI] PROCEDURE: [1. Diagnostic laparoscopy, lysis of adhesions, gastrostomy creation in order to create a window for ERCP, gastrostomy primary closure ] ESTIMATED BLOOD LOSS: [15 cc] INDICATIONS: [Patient is 68-year-old female with history of Nia-en-Y gastric bypass who was found to have choledocholithiasis. Recommendation was given for ERCP. Diagnostic laparoscopy was recommended in order to create a window through the gastric remnant and axis the 2nd portion of duodenum in order to perform an ERCP. This was planned in combination with gastroenterology. Risks, benefits, alternatives were discussed with the patient. All questions were answered. Patient agreed to proceed.] DESCRIPTION OF PROCEDURE: [After appropriate consent was obtained, the patient was transferred to the operating room and placed in supine position on the operating table. SCDs were placed, preop antibiotics were given. Patient then underwent induction of general anesthesia, endotracheal intubation. Patient was then prepped and draped in usual sterile fashion. Time-out was performed. Through a left subcostal incision, Veress needle was inserted the peritoneal ca vity. Insufflation was allowed to 15 mmHg. Through a supraumbilical 5 mm incision, trocar and laparoscope were inserted into the peritoneal cavity using Optiview. Veress needle and this vicinity were examined and no signs of injury. Rest of my trocars were all placed under direct visualization. Few intra-abdominal adhesions were present, these were taken down using Harmonic scalpel. The gastric remnant was identified. A gastrostomy was created on the large curvature of the fundus using Harmonic scalpel. A couple of retention sutures of 2-0 silk were placed at the corners of the gastrostomy. Through a supraumbilical incision 15 mm trocar was placed and advanced into the gastrostomy. Using the retention sutures the stomach was pulled towards the abdominal wall. At this time the pipeline systems operator, Dr. Suggs was called and he performed a laparoscopic-assisted ERCP through the 15 mm trocar. Please see his separate dictation. In summary he was able to create a sphincterotomy and removed a large common bile duct stone. Once the portion of gastroenterology, Dr. Suggs, was finalized, we redraped the area of the 15 mm port. This port was exchanged to a new one. The gastrostomy was then identified. It was closed primarily using 3-0 V lock absorbable suture in two layers. The 15 mm trocar site fascia was closed with two 2-0 Vicryl sutures through a suture Passer. Final inspection revealed adequate hemostasis, no concerns for leakage. Final counts were correct at the end of the case. All instruments were removed. Skin incisions were closed with 4-0 Monocryl. Dermabond was applied over the incisions. Patient tolerated the procedure well. Transferred to recovery in a good condition. This concluded the surgery.] STAR FRANCO MD Nov 18, 2024 13:25
--- NOTE | 2024-11-18 13:29 | DS ---
Discharge Summary Hospital Course Patient is a 68-year-old female with choledocholithiasis and history of gastric bypass who was admitted from the outpatient setting on 11/18/2024 for elective laparoscopic-assisted ERCP. No issues during the procedure. Patient tolerated the procedure well. Patient with no major concerns at this time. Remains hem odynamically stable, afebrile. Normal sinus rhythm, aerating well on room air. Abdomen is benign. Incisions clean dry and intact. No rebound or guarding. Appropriately tender to palpation. Patient will be discharged home today once cleared per anesthesia protocol. She will advance diet as tolerated. Clear liquids for 24 hours. Postop meds have been submitted to the patient's pharmacy. Postop follow up already in place. Return precautions given including fevers of 101.5 or higher, worsening abdomina l pain, intractable nausea or vomiting. Patient to avoid lifting more than 20 lb for a month. Okay to shower 24 hours after the procedure. STAR FRANCO MD Nov 18, 2024 13:29
--- NOTE | 2024-11-27 16:35 | HMCIMG ---
X-RAY BILIARY DUCT ENDOSCOPY HISTORY: ERCP TECHNIQUE: X-RAY BILIARY DUCT ENDOSCOPY FINDINGS/IMPRESSION: Fluoroscopic image/s obtained for procedure documentation. Fluoroscopy time 22 seconds. Please see operative report for more details. ERCP performed.
== END 2024-11-18 13:20 | disposition home or self-care (01) ==
LOC: DAH 05:48
PROVIDERS: ATTEND Surgery
DX: K80.50 Calculus of bile duct without cholangitis or cholecystitis without obstruction (principal); I10 Essential (primary) hypertension; I25.10 Atherosclerotic heart disease of native coronary artery without angina pectoris; I25.2 Old myocardial infarction; E78.5 Hyperlipidemia, unspecified; R93.2 Abnormal findings on diagnostic imaging of liver and biliary tract; D50.9 Iron deficiency anemia, unspecified; R19.7 Diarrhea, unspecified; F41.9 Anxiety disorder, unspecified; F32.A Depression, unspecified; E11.9 Type 2 diabetes mellitus without complications; Z86.0100 Personal history of colon polyps, unspecified; Z95.5 Presence of coronary angioplasty implant and graft; Z98.84 Bariatric surgery status; Z95.1 Presence of aortocoronary bypass graft; Z88.0 Allergy status to penicillin; Z79.01 Long term (current) use of anticoagulants; Z88.6 Allergy status to analgesic agent; Z88.8 Allergy status to other drugs, medicaments and biological substances; Z90.49 Acquired absence of other specified parts of digestive tract; Z79.899 Other long term (current) drug therapy
CPT/HCPCS: 80053; 85025; 85610; 85730; 86850; 86900; 86901; 36415; 93005; 47579; 82948 ×5; A6260; A4663; J7030 ×2; A4606; A4215 ×2; J3010 ×2; J7070 ×2; J3490 ×3; J2250; J2704; J2710; J0665; Q9967; J1335; C1769 ×3; A4649; A4223; A4222; A4221; A4216; C1773; A4600; 43262; 43264; 74328

== ENCOUNTER 2024-12-07 08:54 | Inpatient (IN) | payer OTHER ==
[~2024-12-07] VITALS: Ht 157.5 cm; Wt 73.5 kg
[2024-12-07] VITALS (34 sets, daily range): BP systolic 81–139; BP diastolic 27–92; PULSE 43–53; RESP 9–23; TEMP 97.6–98; O2SAT 99–100
--- NOTE | 2024-12-07 09:10 | EKG ---
[facility] Test Date: 2024-12-07 Test Time: 09:05:49 Pat Name: PROMISE AUSTIN Department: ED Room: 216 Gender: F Exercise Equipment Specialist: [id number] : [id number] Requested By: CARLOS COLLADO Order Number: [id number] Reading MD: Huyen Callahan Measurements Intervals [place] Rate: 52 P: 36 WA: 208 QRS: 42 QRSD: 126 T: 158 QT: 509 QTc: 475 Interpretive Statements Sinus rhythm Nonspecific intraventricular conduction delay Inferior infarct, old Probable anterior infarct, age indeterminate Compared to ECG 11/16/2024 13:06:48 Intraventricular conduction delay now present Sinus bradycardia no longer present First degree AV block no longer present Left ventricular hypertrophy no longer present Q waves no longer present Myocardial infarct finding still present Electronically Signed On 12-07-2024 15:07:40 CDT by Huyen Callahan Please click the below link to view image of tracing.
[2024-12-07 09:18] LABS: IMMATURE GRANULOCYTE ABSOLUTE 0.05 K/uL (0-1); NUCLEATED RED BLOOD CELLS 0.4 % (0.0-0.19); PLATELET COUNT (AUTO) 280 K/uL (130-400); RED BLOOD CELL COUNT(AUTO) 1.47 MIL/uL (4.00-5.50); RED CELL DISTRIBUTION WIDTH 20.9 % (11.0-15.5); WHITE BLOOD COUNT (AUTO) 6.8 K/uL (4.8-10.8)
[2024-12-07] MEDS: FAMOTIDINE 20MG VIAL IV ONE (09:28)
[2024-12-07] MEDS: 0.9%NACL 1000ML 1,000 ML IV ONE (09:28)
[2024-12-07 09:29] LABS: INR 1.47 (0.85-1.15)
--- NOTE | 2024-12-07 09:36 | ERN ---
General Chief Complaint: Weakness Stated Complaint: WEAKNESS Time Seen by MD: 08:59 History of Present Illness Initial Comments A 69-year-old woman presents to the emergency department accompanied by her , with a chief complaint of vomiting for two days, diarrhea for three days, generalized weakness, disorientation, and mild shortness of breath when lying down. She reports eating only ice chips for the past 30 days due to fear of vomiting. Her surgical history is notable for a cholecystectomy performed few months ago and a repeat procedure to remove retained bile duct gallstones two weeks prior to presentation. Patient reports that she has dark-colored stools and that she has lost appetite. Patient denies fever, chills. Severity: moderate Associated Symptoms: loss of appetite, nausea/vomiting, weakness Allergies: Coded Allergies: Captopril (Unverified Allergy, ANAPHYLAXIS, 03/07/12) Penicillin V (Unverified Allergy, SWELLING, 03/07/12) tramadol (Unverified Adverse Reaction, Severe, VIOLENT HALLUCINATIONS, 03/07/12) Home Meds Active Scripts Amiodarone HCl (Amiodarone HCl) 200 Mg Tablet, 1 TAB PO DAILY for 30 Days, #30 TAB 3 Refills Prov:REGINA STEINER SENIOR SUPPLIER QUALITY ENGINEER 08/16/24 Reported Medications Mirtazapine (Mirtazapine) 45 Mg Tablet, 45 MG PO HS, TAB 11/16/24 Buspirone HCl (Buspirone HCl) 10 Mg Tablet, 10 MG PO HS, TAB 11/16/24 Furosemide (Furosemide) 20 Mg Tablet, 20 MG PO DAILY, TAB 09/08/24 Amlodipine Besylate (Amlodipine Besylate) 5 Mg Tablet, 5 MG PO HS, TAB 08/10/24 Gabapentin (Gabapentin) 100 Mg Capsule, 100 MG PO HS, CAP 08/10/24 Hydralazine HCl (Hydralazine HCl) 25 Mg Tablet, 1 TAB PO DAILY, 0 Refills 08/10/24 Rivaroxaban (Xarelto) 20 Mg Tablet, 1 TAB PO DAILY for 30 Days, #30 TAB 0 Refills with food 08/10/24 Pravastatin Sodium (Pravastatin Sodium) 40 Mg Tablet, 80 MG PO DAILY, TAB 08/10/24 Escitalopram Oxalate (Escitalopram Oxalate) 20 Mg Tablet, 1 TAB PO DAILY for 30 Days, #30 TAB 0 Refills 08/10/24 Past Medical History Past Medical History: Anxiety, Depression, Diabetes-Type II, High Cholesterol, Heart Disease, Hypertension Medical History Other: BLIND, VERTIGO Past Surgical History: Hysterectomy, Cholecystectomy, CABG, Bariatric Surgery Social History Social History: Negative, Lives with family Constitutional: (+) weakness EENTM: (+) other documentation (Patient mentions that she is blind and hard of hearing.) Respiratory: (+) short of breath Cardiovascular: (-) chest pain, (-) edema, (-) palpitations, (-) syncope, (-) dyspnea on exertion, (-) other documentation Gastrointestinal/Abdominal: (+) nausea, (+) vomiting, (+) diarrhea Genitourinary: (-) vaginal discharge, (-) vaginal bleeding, (-) dysuria, (-) frequency, (-) hematuria, (-) pain, (-) other documentation Musculoskeletal: (-) Neck pain, (-) back pain, (-) Flank Pain, (-) joint pain, (-) joint swelling, (-) muscle pain, (-) muscle stiffness, (-) gout, (-) other documentation Skin: (-) laceration, (-) contusion, (-) abrasion, (-) abscess, (-) rash, (-) change in color, (-) change in hair, (-) change in nails, (-) diaphoresis, (-) dryness, (-) other documentation Neuro: (-) altered mental status, (-) headache, (-) syncope, (-) paralysis, (-) numbness, (-) seizure, (-) pre-existing deficit, (-) tremors, (-) weakness, (-) dizziness, (-) slurred speech, (-) vertigo, (-) other documentation Physical Exam General Appearance: (+) apparent distress Orientation: (+) alert Head/Face Trauma: No Ear, Nose, Throat: (+) other documentation (Hardf of hearing) Neck: (+) normal inspection, (+) supple Respiratory: (+) chest non-tender, (+) lungs clear Heart: (+) regular Vascular: (+) no edema, (+) normal peripheral pulse Gastrointestinal: (+) soft, (+) non-tender Skin: (+) pallor Results Laboratory and Microbiology Lab and Micro Result Laboratory Tests Test 12/07/24 09:09 12/07/24 09:17 White Blood Count 6.8 K/uL (4.8-10.8) Red Blood Count 1.47 MIL/uL (4.00-5.50) L Hemoglobin 4.7 g/dL (12.0-16.0) *L Hematocrit 15.5 % (36-48) *L Mean Corpuscular Volume 105.4 fL (79-99) H Mean Corpuscular Hemoglobin 32.0 pg (27.0-33.0) Mean Corpuscular Hemoglobin Concent 30.3 g/dL (32.0-36.0) L Red Cell Distribution Width 20.9 % (11.0-15.5) H Platelet Count 280 K/uL (130-400) Mean Platelet Volume 11.4 fL (7.5-10.5) H Immature Granulocyte % (Auto) 0.7 % (0-1) Neutrophils (%) (Auto) 79.8 % (40.0-77.0) H Lymphocytes (%) (Auto) 14.0 % (21.0-51.0) L Monocytes (%) (Auto) 4.8 % (3.0-13.0) Eosinophils (%) (Auto) 0.3 % (0.0-8.0) Basophils (%) (Auto) 0.4 % (0.0-5.0) Neutrophils # (Auto) 5.5 K/uL (1.8-7.7) Lymphocytes # (Auto) 1.0 K/uL (1.0-4.8) Monocytes # (Auto) 0.3 K/uL (0.1-1.0) Eosinophils # (Auto) 0.02 K/uL (0.00-0.70) Basophils # (Auto) 0.03 K/uL (0.00-0.20) Absolute Immature Granulocyte (auto 0.05 K/uL (0-1) Nucleated Red Blood Cells 0.4 % (0.0-0.19) H Prothrombin Time 15.0 SEC (9.6-11.6) H Prothromb Time International Ratio 1.47 (0.85-1.15) H Activated Partial Thromboplast Time 28.7 SEC (26.3-35.5) Sodium Level 139 mmol/L (136-145) Potassium Level 4.7 mmol/L (3.5-5.1) Chloride Level 105 mmol/L (101-111) Carbon Dioxide Level 24 mmol/L (21-32) Blood Urea Nitrogen 57 mg/dL (7-18) H Creatinine 2.4 mg/dL (0.5-1.0) H Glomerular Filtration Rate Calc 22 mL/min (>90) Random Glucose 118 mg/dL (70-105) H Lactic Acid Level 3.7 mmol/L (0.8-2.5) H Total Calcium 7.9 mg/dL (8.5-10.1) L Total Bilirubin 0.4 mg/dL (0.2-1.0) Direct Bilirubin 0.2 mg/dL (0.0-0.3) Aspartate Amino Transf (AST/SGOT) 61 U/L (10-37) H Alanine Aminotransferase (ALT/SGPT) 40 U/L (12-78) Alkaline Phosphatase 101 U/L (50-136) Troponin I High Sensitivity 1055 ng/L (4-50) *H Total Protein 5.8 g/dL (6.0-8.3) L Albumin 2.7 g/dL (3.5-5.0) L Lipase 37 U/L (16-77) Influenza Type A Antigen Negative For Type A Influenza Type B Antigen Negative For Type B SARS-CoV-2, RNA, NAAT NEGATIVE SARS CoV-2 MDM MDM: Differential diagnosis: , Rationale: Tests considered and ordered secondary to shared decision making include: labs, ECG and radiology Previous outside records reviewed: Old ER visits. Risk of complication and/or morbidity or mortality of patient management: None Medications-Per medication reconciliation Need for hospitalization: Patient does meet criteria for hospitalization. Need for emergency major/minor surgery: No There are no social concerns with this patient. Prescription drug management Prescriptions will include symptomatic care Patient's prior external medical records from other ER visits were reviewed by me as indicated. Prior testing and results from previous visits were reviewed. Prior tests were taken into account with medical decision making and resource utilization, independent historian/historians were used to obtain complete medical history. I independently interpreted the test that were performed, results were reviewed by me and considered findings on radiology if ordered. Medical management and examination interpretation discussions were had by me with other qualified healthcare professionals as indicated for the patient's care. ED Course Orders Procedure Category Date Status Time 12 Lead Ekg Tracing- EKG 12/07/24 Complete Technical 08:59 Cbc With Differential LAB 12/07/24 In Process 08:59 Basic Metabolic Panel LAB 12/07/24 Complete 08:59 Covid Rna Naat LAB 12/07/24 Complete 08:59 Hepatic Function Panel LAB 12/07/24 Complete 08:59 Influenza Type A & B, LAB 12/07/24 Complete Rapid 08:59 Lactic Acid LAB 12/07/24 Complete 08:59 Lipase LAB 12/07/24 Complete 08:59 Procalcitonin LAB 12/07/24 In Process 08:59 Pt And Ptt LAB 12/07/24 Complete 08:59 Troponin I High LAB 12/07/24 Complete Sensitivity 08:59 Urinalysis LAB 12/07/24 Logged W/Microscopic 08:59 Chest 1vw RAD 12/07/24 Taken 08:59 Famotidine 20mg Vial PHA 12/07/24 Complete (Pepcid 20mg Vial) 09:30 Ondansetron 4mg Inj PHA 12/07/24 Complete (Zofran 4mg Inj) 09:30 0.9%Nacl 1000ml (Ns PHA 12/07/24 Complete 1000ml) 09:30 Occult Blood Stool LAB 12/07/24 Logged Single Only 09:17 Vancomycin 1g/250ml PHA 12/07/24 Complete Kit (Vancomycin 1g/2 09:30 Aztreonam (Azactam) PHA 12/07/24 Complete 09:30 Ct Abdomen/Pelvis W/O CT 12/07/24 Logged Contrast 09:27 Type And Screen BBK 12/07/24 In Process 09:29 Rbc-No Active Bleeding BBK 12/07/24 In Process 09:29 Rbc-No Active Bleeding BBK 12/07/24 In Process 09:30 Daily Weights CPOE 12/07/24 Transmitted 09:41 Intake And Output CPOE 12/07/24 Transmitted Every 1 Hour 09:41 Npo Except For Meds CPOE 12/07/24 Transmitted 09:41 Cbc With Differential LAB 12/08/24 Verified 04:00 Basic Metabolic Panel LAB 12/08/24 Verified 04:00 Magnesium LAB 12/08/24 Verified 04:00 Phosphorus LAB 12/08/24 Verified 04:00 Procalcitonin LAB 12/08/24 Verified 04:00 D-Dimer LAB 12/08/24 Verified 04:00 Prothrombin Time With LAB 12/07/24 Logged INR 09:41 Urinalysis Profile LAB 12/07/24 Logged 09:41 Culture Urine GILBERT 12/07/24 Logged 09:41 Cardiac Panel LAB 12/07/24 Logged 09:41 Cardiac Panel LAB 12/07/24 Logged 15:41 Cardiac Panel LAB 12/07/24 Logged 21:41 Hemoglobin And LAB 12/07/24 Logged Hematocrit 12:00 Hemoglobin And LAB 12/07/24 Logged Hematocrit 18:00 Hemoglobin And LAB 12/08/24 Verified Hematocrit 00:00 Hemoglobin And LAB 12/08/24 Verified Hematocrit 06:00 Thyroid Stimulating LAB 12/08/24 Verified Hormone 04:00 Folic Acid 1 Mg PHA 12/08/24 In Process Tablet (Folic Acid 1 09:00 Thiamine Hcl (Vitamin PHA 12/08/24 In Process B-1) 09:00 Polyethylene Glycol PHA 12/08/24 In Process 3350 (Miralax 3350 1 09:00 Ferrous Sulfate PHA 12/08/24 In Process (Ferrous Sulfate) 09:00 Acetaminophen 325 Tab PHA 12/07/24 In Process (Tylenol 325mg Tab 10:00 Acetaminophen 650mg PHA 12/07/24 In Process Supp (Tylenol 650mg 10:00 Admit Orders ADM 12/07/24 Transmitted 09:41 Initiate GAVI 12/07/24 In Process Hyperglycemia Protoco 09:41 Pantoprazole 40mg Inj PHA 12/07/24 In Process (Protonix 40mg Inj 10:00 Octreotide Acetate PHA 12/07/24 In Process (Sandostatin) 10:00 Nm Gi Blood Loss Imag NM 12/07/24 Logged 09:41 Current Medications Medications (Trade) Dose Ordered Sig/Stephen Route PRN Reason Start Time Stop Time Status Last Admin Dose Admin Acetaminophen (TYLenol 325MG TAB) 650 mg Q6H PRN PO FEVER/MILD PAIN LEVEL 1-3 12/07/24 10:00 01/06/25 09:59 Acetaminophen (TYLenol 650MG SUPPOSITORY) 650 mg Q6H PRN RC FEVER / MILD PAIN 1-3 IF NPO 12/07/24 10:00 01/06/25 09:59 Aztreonam (Azactam) 1 gm ONCE ONCE IVPB 12/07/24 09:30 12/07/24 09:33 DC 12/07/24 09:55 Famotidine (Pepcid 20mg Vial) 20 mg ONCE ONCE IV 12/07/24 09:30 12/07/24 09:31 DC 12/07/24 09:28 Ferrous Sulfate (Ferrous Sulfate) 325 mg DAILY PO 12/08/24 09:00 01/07/25 08:59 Folic Acid (FOLic ACID 1 MG TABLET) 1 mg DAILY PO 12/08/24 09:00 01/07/25 08:59 Octreotide Acetate 1250 mcg/ Sodium Chloride 250 ml @ 0 mls/hr PROTOCOL IV 12/07/24 10:00 01/06/25 09:59 Ondansetron HCl (zoFRAN 4MG INJ) 4 mg ONCE ONCE IVP 12/07/24 09:30 12/07/24 09:31 DC 12/07/24 09:28 Pantoprazole Sodium 80 mg/ Sodium Chloride 100 ml @ 10 mls/hr Q10H IV 12/07/24 10:00 01/06/25 09:59 Polyethylene Glycol (MIRalax 3350 17 GM POWD.PACK) 17 gm DAILY PO 12/08/24 09:00 01/07/25 08:59 Sodium Chloride 1,000 ml @ 0 mls/hr ONCE ONCE IV 12/07/24 09:30 12/07/24 09:31 DC 12/07/24 09:28 Thiamine HCl (Vitamin B-1) 100 mg DAILY PO 12/08/24 09:00 01/07/25 08:59 Vancomycin HCl (Vancomycin 1g/ 250ml Kit) 1 gm ONCE ONCE IV 12/07/24 09:30 12/07/24 09:33 DC Vital Signs Date Time Temp Pulse Resp B/P (MAP) Pulse Ox O2 Delivery O2 Flow Rate FiO2 12/07/24 09:22 98.6 51 16 99/25 100 Nasal Cannula* 2 28 12/07/24 08:55 98.2 56 16 106/23 97 Room Air 0 DX & DISP Disposition: Inpatient Departure Impression: Primary Impression: GI bleed Additional Impressions: Elevated troponin, Anemia, Weakness, GENNA (acute kidney injury) Condition: Stable Referrals: JIMENA BEARD MD (PCP) JOSE ENRIQUE PEARCE MD Dec 07, 2024 09:36 CARLOS COLLADO MD Dec 07, 2024 10:10
[2024-12-07 09:37] LABS: SARS-CoV-2, RNA, NAAT NEGATIVE SARS CoV-2 (NEGATIVE)
[2024-12-07 09:43] LABS: CREATININE 2.4 mg/dL (0.5-1.0); GLOMERULAR FILTR. RATE CALC 22.0 mL/min (>90); GLUCOSE,RANDOM 118.0 mg/dL (70-105); SODIUM SERUM 139.0 mmol/L (136-145); UREA NITROGEN, BLOOD 57.0 mg/dL (7-18)
[2024-12-07 09:45] LABS: INFLUENZA TYPE A Negative For Type A (NEGATIVE); INFLUENZA TYPE B Negative For Type B (NEGATIVE)
[2024-12-07 09:48] LABS: ASPARTATE AMINOTRANSFERASE 61.0 U/L (10-37); TOTAL PROTEIN, SERUM 5.8 g/dL (6.0-8.3)
[2024-12-07] MEDS: AZTREONAM 1 GM VIAL IVPB ONE (09:55)
--- NOTE | 2024-12-07 10:33 | HMCIMG ---
EXAM: CR Chest, 2 View. CLINICAL HISTORY: Shortness of breath COMPARISON: Radiograph dated September 12, 2024 FINDINGS: AP view of the chest is submitted. Left basilar/retrocardiac airspace disease may reflect atelectasis and/or an infectious/inflammatory process. Heart size is stable. Pulmonary vessels are within normal limits. IMPRESSION: 1. Left basilar/retrocardiac airspace disease, possibly representing atelectasis or infectious/inflammatory process. /[place]
[2024-12-07] MEDS: VANCOMYCIN KIT 1 GM/250 ML IV.KIT IV ONE (10:53)
--- NOTE | 2024-12-07 10:58 | NUR ---
GAVE REPORT TO PAKO AT THIS TIME.
--- NOTE | 2024-12-07 11:39 | HMCIMG ---
EXAM: CT Abdomen and Pelvis without IV contrast CLINICAL HISTORY: Abdominal pain. TECHNIQUE: Thin collimated axial CT images of the abdomen and pelvis were obtained with sagittal and coronal reformatted images also submitted. CT scan is done according to ALARA (As Low As Reasonably Achievable). CONTRAST: None. COMPARISON: Prior CT abdomen and pelvis dated 09/08/24. FINDINGS: Mild left pleural effusion. Minimal right pleural effusion. No focal abnormality within the liver, pancreas, spleen, or adrenals. A 3.6 cm cortical cyst at the lower pole of the left kidney. Status post cholecystectomy. Mild diffuse circumferential wall thickening of the bowel loops. Bowel loops are normal in caliber without evidence of obstruction or ileus. No acute appendicitis. There is no abnormality within the urinary bladder. Status post hysterectomy. Extensive atherosclerotic wall calcifications in the abdominal aorta and its branches. No lymphadenopathy. Mild ascites. Diffuse anasarca. There is no acute osseous abnormality. IMPRESSIONS: Stable mild circumferential wall thickening of the bowel loops, suggesting enterocolitis. There is interval absence of the fluid collection in the gallbladder fossa. Stable left renal cortical cyst. Mild interval increase in the ascites. Stable mild left pleural effusion with minimal right pleural effusion. /[place]
[2024-12-07] MEDS: PHYTONADIONE 10 MG in 0.9%NACL 50ML 50 ML IVPB SCH (14:37)
[2024-12-07 19:40] LABS: CREATINE KINASE, TOTAL 196 U/L (21-232)
--- NOTE | 2024-12-07 20:22 | HP ---
[facility] HISTORY & PHYSICAL Date Patient Seen: Dec 07, 2024 Time of Visit: 12:00 Supervising Physician: Jose Palencia MD Primary Care Physician: Ryley Worley MD Outpatient Specialists: Inpatient Consults: DESTINEE PROBLEM LIST: Acute on chronic microcytic anemia, POA GENNA POA NSTEMI type 2 POA Acute hypoxemic respiratory failure, POA Hypovolemia 2/2 acute anemia, POA Lactic acidosis, POA, resolved Hyperglycemia in the presence of type 2 diabetes mellitus Moderate hypoalbuminemia Mild hypoproteinemia Chronic anticoagulants with Xarelto for AFib, POA Transaminitis Ascites Comorbidities: Gastric Bypass surgery in 2002 Type 2 diabetes mellitus Essential hypertension Hyperlipidemia History of atrial fibrillation on Xarelto last dose on 12/02/24 Gastritis Reason ERCP on 11/18/24 with findings of choledocholithiasis with complete removal accomplished by biliary sphincterotomy HPI: This ia 69Yr old female with a past medical History of Blindness, gastric bypass, recent ERCP procedure with finding of choledocholithiasis with complete removal accomplished by biliary sphincterotomy on 11/18/24, Gastritis, type 2 diabetes mellitus, essential hypertension, hyperlipidemia, AFib on Xarelto with last dose three days ago, and external hemorrhoids who presented to the ED for chief complaint of vomiting x2 days, diarrhea and generalized weakness. She did report some mild shortness for breath on arrival and only eating eyes in the last 30 days due to fear of vomiting. Patient did report some dark colored stools and appetite has decreased per proximally a month. She denies any fever or chills. work up done in ED show: Initial hemoglobin of 4.7 15.5 platelet count of 280 K. chemistry BUN 57 creatinine 2.4 GFR of 22 with a glucose of 118 mg/dL lactic acid of 3.7 and total calcium of 7.9 initial sensitive troponin showed 1055 on repeat 1119. Likely from NSTEMI type 2 from demand supply mismatch from acute anemia. CT of the abdomen and pelvis with the contrast shows stable mild circumferential wall thickening of the bowel loops suggesting of the enterocolitis. There is interval abscess of the fluid collection of the gallbladder fossa. Stable left renal cortical cyst. Mild interval increase in the ascites. Stable mild left pleural effusion with minimal right pleural effusion. Chest x-ray shows left basilar retrocardiac airspace disease possibly representing atelectasis or infectious inflammatory process. On assessment patient appears pale awake alert and oriented x3. Reports generalized body weakness. Hemodynamically stable although blood pressure has been marginal and EKG showing sinus bradycardia with a heart rate in the 50s nonspecific interventricular conduction delay. Blood pressure 101/72 respiratory rate of 15 saturating 92% on room air. She is pending 2 units of PRBCs blood transfusion. We will add vitamin K order thiamine 300 mg IV q.day x3 days and folic acid 1 mg daily. We will continue to monitor H&H q.6 hours and admitted to the ICU due to high-risk for decompensation. GI has been consulted. Informed patient and of current findings Both agree with plan of care. PAST MEDICAL HX: see above PAST SURGICAL HX: noncontributory SOCIAL HISTORY: No tobacco, ETOH, or illicit drug use Coded Allergies: Captopril (Unverified Allergy, ANAPHYLAXIS, 03/07/12) Penicillin V (Unverified Allergy, SWELLING, 03/07/12) tramadol (Unverified Adverse Reaction, Severe, VIOLENT HALLUCINATIONS, 03/07/12) REVIEW OF SYSTEMS: Const: Positive for fatigue Eyes: no recent vision problems ENT: No congestion, ear pain, or sore throat C/V: no chest pain, palpitations or edema Resp: No cough, congestion, wheezing , or Shortness of breath GI: Positive for [Nausea no constipation or diarrhea. : No incontinence of or dyuria M/S: No joint or pain swelling Skin: No rash Neuro: no headache, focal numbness, or weakness, dizziness or seizures Psych: no depression or anxiety Heme: no abnormal bruising or bleeding Lymph: no swollen glands PHYSICAL EXAM: GENERAL: alert, weak, awake oriented x 3 HEENT: EOMI, Sclera non icteric, moist mucosa NECK: Supple, no JVD, trachea midline LUNGS: Clear breath sounds bilaterally. No wheezes HEART: Regular rate and rhythm. Normal S1 and S2, without murmurs ABD: Abdomen soft, nontender. Bowel sounds present EXT: No clubbing cyanosis or edema NEURO: Alert and oriented to person, follows commands Vital Signs (last 8hr) Date Time Temp Pulse Resp B/P (MAP) Pulse Ox O2 Delivery O2 Flow Rate FiO2 12/07/24 17:45 43 13 115/54 100 Nasal Cannula 2.0 12/07/24 17:15 44 11 119/53 100 Nasal Cannula 2.0 12/07/24 16:45 44 12 131/52 100 Nasal Cannula 2.0 12/07/24 16:15 45 13 130/60 100 Nasal Cannula 2.0 12/07/24 15:45 97.7 45 18 137/58 100 Nasal Cannula 2.0 12/07/24 15:30 43 13 136/53 100 Nasal Cannula 2.0 12/07/24 15:15 44 13 122/63 100 Nasal Cannula 2.0 12/07/24 15:00 44 17 126/48 98 Nasal Cannula 2.0 12/07/24 15:00 100 Nasal Cannula* 2 28 12/07/24 14:45 43 12 106/48 98 Nasal Cannula 2.0 12/07/24 14:30 44 14 106/61 96 Nasal Cannula 2.0 12/07/24 14:15 45 17 136/92 100 Nasal Cannula 2.0 12/07/24 14:00 46 19 102/73 100 Nasal Cannula 2.0 12/07/24 13:45 48 16 109/66 98 Nasal Cannula 2.0 12/07/24 13:30 49 12 126/55 100 Nasal Cannula 2.0 12/07/24 13:15 49 11 116/41 100 Nasal Cannula 2.0 12/07/24 13:00 50 15 100/42 93 Room Air 12/07/24 12:45 52 15 101/72 92 Room Air 12/07/24 12:30 52 13 93/54 91 Room Air 12/07/24 12:15 51 22 81/38 90 Room Air 12/07/24 12:00 97.5 48 13 101/41 100 Nasal Cannula 2.0 LABS: Hematology Labs: Test 12/07/24 19:17 12/07/24 09:09 Range/Units Hemoglobin 7.4 #L 12.0-16.0 g/dL Hematocrit 23.1 #L 36-48 % White Blood Count 6.8 4.8-10.8 K/uL Red Blood Count 1.47 L 4.00-5.50 MIL/uL Mean Corpuscular Volume 105.4 H 79-99 fL Mean Corpuscular Hemoglobin 32.0 27.0-33.0 pg Mean Corpuscular Hemoglobin Concent 30.3 L 32.0-36.0 g/dL Red Cell Distribution Width 20.9 H 11.0-15.5 % Platelet Count 280 130-400 K/uL Mean Platelet Volume 11.4 H 7.5-10.5 fL Immature Granulocyte % (Auto) 0.7 0-1 % Neutrophils (%) (Auto) 79.8 H 40.0-77.0 % Lymphocytes (%) (Auto) 14.0 L 21.0-51.0 % Monocytes (%) (Auto) 4.8 3.0-13.0 % Eosinophils (%) (Auto) 0.3 0.0-8.0 % Basophils (%) (Auto) 0.4 0.0-5.0 % Neutrophils # (Auto) 5.5 1.8-7.7 K/uL Lymphocytes # (Auto) 1.0 1.0-4.8 K/uL Monocytes # (Auto) 0.3 0.1-1.0 K/uL Eosinophils # (Auto) 0.02 0.00-0.70 K/uL Basophils # (Auto) 0.03 0.00-0.20 K/uL Absolute Immature Granulocyte (auto 0.05 0-1 K/uL Nucleated Red Blood Cells 0.4 H 0.0-0.19 % Red Blood Cell Morphology See comments Chemistry Labs: Test 12/07/24 19:17 12/07/24 09:09 Range/Units Lactic Acid Level 1.1 0.8-2.5 mmol/L Total Creatine Kinase 196 # 21-232 U/L Troponin I High Sensitivity 1119 *H 4-50 ng/L Sodium Level 139 136-145 mmol/L Potassium Level 4.7 3.5-5.1 mmol/L Chloride Level 105 101-111 mmol/L Carbon Dioxide Level 24 21-32 mmol/L Blood Urea Nitrogen 57 H 7-18 mg/dL Creatinine 2.4 H 0.5-1.0 mg/dL Glomerular Filtration Rate Calc 22 >90 mL/min Random Glucose 118 H 70-105 mg/dL Total Calcium 7.9 L 8.5-10.1 mg/dL Total Bilirubin 0.4 0.2-1.0 mg/dL Direct Bilirubin 0.2 0.0-0.3 mg/dL Aspartate Amino Transf (AST/SGOT) 61 H 10-37 U/L Alanine Aminotransferase (ALT/SGPT) 40 12-78 U/L Alkaline Phosphatase 101 50-136 U/L Total Protein 5.8 L 6.0-8.3 g/dL Albumin 2.7 L 3.5-5.0 g/dL Lipase 37 16-77 U/L Procalcitonin < 0.05 L 0.05-0.5 ng/mL Coagulation Labs: Test 12/07/24 09:09 Range/Units Prothrombin Time 15.0 H 9.6-11.6 SEC Prothromb Time International Ratio 1.47 H 0.85-1.15 Activated Partial Thromboplast Time 28.7 26.3-35.5 SEC DIAGNOSTICS / RADIOLOGY RESULTS: [ [facility] [address] [place] [address] IMAGING REPORT Signed PATIENT: PROMISE AUSTIN MR#: [id number] : 1955 SEX: F AGE: 69 LOCATION: [facility] ORDER 8 STATUS: ADM IN REPORT#: [id number] SERVICE 6 REASON: Abdominal pain ORDERING PHYSICIAN: CARLOS COLLADO MD PROCEDURE: ABD PEL WO - CT ABDOMEN/PELVIS W/O CONTRAST EXAM: CT Abdomen and Pelvis without IV contrast CLINICAL HISTORY: Abdominal pain. TECHNIQUE: Thin collimated axial CT images of the abdomen and pelvis were obtained with sagittal and coronal reformatted images also submitted. CT scan is done according to ALARA (As Low As Reasonably Achievable). CONTRAST: None. COMPARISON: Prior CT abdomen and pelvis dated 09/08/24. FINDINGS: Mild left pleural effusion. Minimal right pleural effusion. No focal abnormality within the liver, pancreas, spleen, or adrenals. A 3.6 cm cortical cyst at the lower pole of the left kidney. Status post cholecystectomy. Mild diffuse circumferential wall thickening of the bowel loops. Bowel loops are normal in caliber without evidence of obstruction or ileus. No acute appendicitis. There is no abnormality within the urinary bladder. Status post hysterectomy. Extensive atherosclerotic wall calcifications in the abdominal aorta and its branches. No lymphadenopathy. Mild ascites. Diffuse anasarca. There is no acute osseous abnormality. IMPRESSIONS: Stable mild circumferential wall thickening of the bowel loops, suggesting enterocolitis. There is interval absence of the fluid collection in the gallbladder fossa. Stable left renal cortical cyst. Mild interval increase in the ascites. Stable mild left pleural effusion with minimal right pleural effusion. /[facility] DICTATED BY: EUGENIE CHOUDHURY Jr., MD DATE: 12/07/241237 ELECTRONICALLY SIGNED BY: EUGENIE CHOUDHURY Jr., MD DATE: 12/07/24 1238 ] PLAN Monitor for airway compromise monitor hemodynamics GI consult Hgb goal of 7-8 g/dl consider platelets if <50K and active bleed plasma if INR >1.5 cryoprecipitate if fibrinogen <100 mg/dl continuous cardiac monitoring strict herminia Sandostatin gtt PPI w/ Protonix gtt 8mg/hr prophylactic abx with Ceftriaxone 1g daily x 7 days NPO until bleeding controlled per GI recs Daily labs: CBC, CMP, LFTs, coagulation panel, ammonia. Monitor for rebleeding (repeat hematemesis, drop in Hgb). NEURO: Minimize central acting medications as possible. Fall Precautions. Well lighted room through the day and minimize interruptions through the night to prevent acute delirium. PULMONARY: Supplemental 02 as needed Titrate Fio2 to keep Spo2 > or = 90% DuoNebs and CPT as needed IS hourly while awake for pulmonary hygiene Out of bed to chair as tolerated CARDIOVASCULAR: Follow hemodynamics. Titrate vasopressor to keep MAP >65 or systolic blood pressure >95mmHg DRIPS: protonix and sandostatin LINES: PIV GI & NUTRITION: Continue nutritional support Aspirations precautions Prokinetic agents and laxatives as needed KIDNEYS & ELECTROLYTES: Strict monitoring of intake and output Daily weights Avoid nephrotoxic agents Monitor electrolytes and replace as needed Goal urine output of 30mL/hr or 0.5mL/kg/hr Urine output: [ ] Fluid Balance: [ ] ENDOCRINE: Maintain blood glucose between 100-180 at all times. Insulin sliding scale for blood glucose management INFECTIOUS DISEASE: Trend temperature. Main-culture if febrile. Micro: [ ] Antibiotics: [ ] Rocephin HEMATOLOGY & COAGULATION: Monitor H&H. Keep Hgb > 7 Transfuse 1 unit of PRBC for Hgb < 7 Transfuse 1 pack of platelets of platelets < 20, 000 Watch for any signs and symptoms of bleeding SKIN: Pressure ulcer prevention per facility protocol Rehab: PT/OT Prophylaxis: GI: Protonix DVT: SCDs Code Status: Full Resuscitation Disposition: ICU Other: Total patient care time exceeds 35 minutes excluding all procedures. Case was discussed and seen with my supervising physician. The above plan was formulated and agreed upon. ATTESTATION BY PHYSICIAN I attest that I reviewed and discussed the case with the Physician Aerobics Instructor as well as agree with the Physician Aerobics Instructor's findings, plans of care, and documentation above. Jose Turner MD, [facility] Dec 07, 2024 20:22
--- NOTE | 2024-12-07 23:12 | NUR ---
GI bleed was not done because nurse was not able to go down with the patient due to shortage of staff.
[2024-12-07 23:47] LABS: CREATINE KINASE, TOTAL 187.0 U/L (21-232)
[2024-12-08] VITALS (47 sets, daily range): BP systolic 114–165; BP diastolic 43–101; PULSE 45–58; RESP 10–22; TEMP 97.5–98.4; O2SAT 98–100
[2024-12-08 04:39] LABS: IMMATURE GRANULOCYTE ABSOLUTE 0.04 K/uL (0-1); NUCLEATED RED BLOOD CELLS 0.8 % (0.0-0.19); PLATELET COUNT (AUTO) 194 K/uL (130-400); RED BLOOD CELL COUNT(AUTO) 2.37 MIL/uL (4.00-5.50); RED CELL DISTRIBUTION WIDTH 20.2 % (11.0-15.5); WHITE BLOOD COUNT (AUTO) 6.1 K/uL (4.8-10.8)
[2024-12-08 04:57] LABS: CREATININE 2.2 mg/dL (0.5-1.0); GLOMERULAR FILTR. RATE CALC 24 mL/min (>90); GLUCOSE,RANDOM 104 mg/dL (70-105); PHOSPHORUS 4.7 mg/dL (2.5-4.9); SODIUM SERUM 143 mmol/L (136-145); UREA NITROGEN, BLOOD 55 mg/dL (7-18)
[2024-12-08 05:13] LABS: ASPARTATE AMINOTRANSFERASE 77 U/L (10-37); TOTAL PROTEIN, SERUM 4.9 g/dL (6.0-8.3)
--- NOTE | 2024-12-08 08:00 | NUR ---
Report received from Yasmin Colin RN, charge nurse. Care endorsed to myself. Patient voices no complaints of pain or other discomfort at this time. Respirations are even, unlabored, rate of 18.
[2024-12-08] MEDS ORDERED: THIAMINE HCL 100 MG TABLET PO SCH (09:00)
[2024-12-08] MEDS: FERROUS SULFATE 325 MG TABLET.DR PO SCH (09:54)
[2024-12-08] MEDS ORDERED: COMPOUND IV MISC 1 EACH IVSOLN MISC PRN (12:00)
[2024-12-08] MEDS ORDERED: COMPOUND IV REFRIGERATED 1 EACH IVSOLN MISC PRN (12:00)
[2024-12-08] MEDS ORDERED: ACET-2079 PO (12:23)
[2024-12-08] MEDS ORDERED: PHYTONADIONE 10 MG in 0.9%NACL 50ML 50 ML IVPB SCH (14:00)
--- NOTE | 2024-12-08 15:03 | NUR ---
DCP: HOME with current HH (?) Liv met with pt's Richard Hardy [phone]. Per , pt is blind, but is very independent. Pt is able to complete her ADLS ( assists if needed ) pt uses a cane, shower chair and grab bars. pt was discharged from [facility] 3 weeks ago and states "a nurse from [facility] comes 2x a week for wound care". Asked if pt has HH services, states [facility] arranged nurse at discharge. PCP is Irene Worley and uses Abe [facility]ins [facility] for rx needs. Pt to return home at [facility] to follow and assist as needed Addendum: 12/08/24 at 1511 by RAMESH GALVAN Amended: Links added.
--- NOTE | 2024-12-08 15:30 | CONS ---
GASTROENTEROLOGY CONSULTATION NOTE Date of Consultation: Dec 08, 2024 Time of Consultation: 15:30 History of Present Illness: [69-year-old female patient presents to the emergency room with complaints of vomiting for two days, diarrhea for three days, weakness, shortness of breath, and disorientation. Per ER report patient also reported having dark colored stools. We were consulted for GI bleed. Patient with history of having choledocholithiasis and underwent an ERCP on 11/18/2024 and had one stone removed from biliary tree. On admission patient's WBC was 6.8, hemoglobin 4.7, platelets 280. Patient received 1 unit of RBCs transfused hemoglobin today is at 7.2, platelets 184, WBCs 6.1. Chemistries significant for BUN of 55, creatinine 2.2, calcium 7.3, total bilirubin 0.5, AST 77, ALT 45, alkaline phos 79, Total protein 4.9, albumin 2.1, folic acid greater than 20. Troponin 1034.7. Lactic acid 1.1. PT 15, INR 1.47. D-dimer 238. CT of abdomen and pelvis without IV contrast significant for stable mild circumferential wall thickening of the bowel loops suggesting enterocolitis. There is interval absence of the fluid collection in the gallbladder fossa. Stable left renal cortical cysts. Mild interval increase in the ascites. Stable mild left pleural effusion with minimal right pleural effusion. GI bleed scan completed but results are pending. Chest x-ray significant for left basilar retrocardiac airspace disease possibly representing atelectasis or infectious/ inflammatory process. On exam, patient is resting in SF in no acute distress. Her respirations are unlabored. BBS are clear. Abdomen is soft and not distended. Active BS present. Poc discussed with patient and patient's daughter and recommendations for EGD. d/t melena and episodes of emesis. All their questions were answered to their satisfaction. Patient and daughter agreed to proceed with exam. ] Review of Systems: CONSTITUTIONAL: No malaise or change in sensation of wellbeing. ENMT: No rhinorrhea, otorrhea, sinus pain, ear ache. CARDIOVASCULAR: No angina, palpitations, orthopnea or paroxysmal dyspnea. RESPIRATORY: No SOB. GASTROINTESTINAL: No abdominal pain, nausea, vomiting, diarrhea, hematemesis, melena or change in the patient's habitual bowel movements consistency/number. GENITOURINARY: No dysuria, hematuria or change in bladder continence. MUSCULOSKELETAL: No new muscle pain or decrease in muscular strength. No new joint swelling, redness or tenderness. SKIN: No new rash. Past Medical History: Anxiety, Depression, Diabetes-Type II, High Cholesterol, Heart Disease, Hypertension Medical History Other: BLIND, VERTIGO Past Surgical History: Hysterectomy, Cholecystectomy, CABG, Bariatric Surgery Coded Allergies: Captopril (Unverified Allergy, ANAPHYLAXIS, 03/07/12) Penicillin V (Unverified Allergy, SWELLING, 03/07/12) tramadol (Unverified Adverse Reaction, Severe, VIOLENT HALLUCINATIONS, 03/07/12) Physical Exam: GEN: Awake, alert, oriented in person, time and place, and in no acute distress. HEENT: No rhinorrhea. Oral pharyngeal mucosa is pink, moist and within normal limits. CHEST: Inspection, and palpation of the chest were unremarkable. Lung auscultation revealed normal breath sounds bilaterally. CARDIAC: PMI is within normal limits. Heart sounds are regular. ABD: Soft, non-tender and not distended. No peritoneal signs on palpation. No organomegaly. Normal bowel sounds. Last bm 12/07/24. EXT: No cyanosis or clubbing. No edema. SKIN: Intact. No rashes. JOINTS: No evidence of synovitis or acute arthritis. NEURO: Alert and oriented to name, place and person. No focal motor deficits. Normal speech. Strength is normal. Vital Sign (Last 24 Hours) 12/08/24 12/08/24 12/08/24 12/08/24 00:00 02:30 04:00 14:28 Temp 98.1 Pulse 58 Resp 20 B/P (MAP) 132/61 Pulse Ox 100 O2 Delivery N/Cannula Low lpm O2 Flow Rate 2.0 FiO2 28 Intake & Output (last 24hrs) 12/07/24 12/07/24 12/08/24 15:00 23:00 07:00 Intake Total 1278.0 ml 626.0 ml 126.0 ml Output Total 550 ml Balance 1278.0 ml 626.0 ml -424.0 ml Laboratory: [ ] Laboratory: Test 12/08/24 04:15 12/07/24 22:21 12/07/24 19:17 12/07/24 09:17 Range/Units White Blood Count 6.1 4.8-10.8 K/uL Red Blood Count 2.37 #L 4.00-5.50 MIL/uL Hemoglobin 7.2 L 12.0-16.0 g/dL Hematocrit 23.0 L 36-48 % Mean Corpuscular Volume 97.0 79-99 fL Mean Corpuscular Hemoglobin 30.4 27.0-33.0 pg Mean Corpuscular Hemoglobin Concent 31.3 L 32.0-36.0 g/dL Red Cell Distribution Width 20.2 H 11.0-15.5 % Platelet Count 194 # 130-400 K/uL Mean Platelet Volume 11.6 H 7.5-10.5 fL Immature Granulocyte % (Auto) 0.7 0-1 % Neutrophils (%) (Auto) 83.7 H 40.0-77.0 % Lymphocytes (%) (Auto) 7.4 L 21.0-51.0 % Monocytes (%) (Auto) 6.1 3.0-13.0 % Eosinophils (%) (Auto) 1.8 0.0-8.0 % Basophils (%) (Auto) 0.3 0.0-5.0 % Neutrophils # (Auto) 5.1 1.8-7.7 K/uL Lymphocytes # (Auto) 0.5 L 1.0-4.8 K/uL Monocytes # (Auto) 0.4 0.1-1.0 K/uL Eosinophils # (Auto) 0.11 0.00-0.70 K/uL Basophils # (Auto) 0.02 0.00-0.20 K/uL Absolute Immature Granulocyte (auto 0.04 0-1 K/uL Nucleated Red Blood Cells 0.8 H 0.0-0.19 % White Cell Morphology Comment See comments D-Dimer Quantitative (PE/DVT) 2380 *H 0-500 ng/mL Sodium Level 143 136-145 mmol/L Potassium Level 4.3 3.5-5.1 mmol/L Chloride Level 111 101-111 mmol/L Carbon Dioxide Level 21 21-32 mmol/L Blood Urea Nitrogen 55 H 7-18 mg/dL Creatinine 2.2 H 0.5-1.0 mg/dL Glomerular Filtration Rate Calc 24 >90 mL/min Random Glucose 104 70-105 mg/dL Total Calcium 7.3 L 8.5-10.1 mg/dL Phosphorus Level 4.7 2.5-4.9 mg/dL Magnesium Level 2.00 1.80-2.40 mg/dL Total Bilirubin 0.5 # 0.2-1.0 mg/dL Aspartate Amino Transf (AST/SGOT) 77 H 10-37 U/L Alanine Aminotransferase (ALT/SGPT) 45 12-78 U/L Alkaline Phosphatase 79 50-136 U/L Total Protein 4.9 L 6.0-8.3 g/dL Albumin 2.1 #L 3.5-5.0 g/dL Folic Acid (LAB) > 20.00 H 2-20 ng/mL Procalcitonin < 0.05 L 0.05-0.5 ng/mL Thyroid Stimulating Hormone (TSH) 1.54 0.36-3.74 uIU/mL Total Creatine Kinase 187 21-232 U/L Troponin I High Sensitivity 1034.7 *H 4-50 ng/L Lactic Acid Level 1.1 0.8-2.5 mmol/L Influenza Type A Antigen Negative For Type A NEGATIVE Influenza Type B Antigen Negative For Type B NEGATIVE SARS-CoV-2, RNA, NAAT NEGATIVE SARS CoV-2 NEGATIVE Test 12/07/24 09:09 Range/Units Red Blood Cell Morphology See comments Prothrombin Time 15.0 H 9.6-11.6 SEC Prothromb Time International Ratio 1.47 H 0.85-1.15 Activated Partial Thromboplast Time 28.7 26.3-35.5 SEC Direct Bilirubin 0.2 0.0-0.3 mg/dL Lipase 37 16-77 U/L Current Medications Medications (Trade) Dose Ordered Sig/Stephen Route PRN Reason Start Time Stop Time Status Last Admin Dose Admin Acetaminophen (TYLenol 325MG TAB) 650 mg Q6H PRN PO FEVER/MILD PAIN LEVEL 1-3 12/07/24 10:00 01/06/25 09:59 Acetaminophen (TYLenol 650MG SUPPOSITORY) 650 mg Q6H PRN RC FEVER / MILD PAIN 1-3 IF NPO 12/07/24 10:00 01/06/25 09:59 Ferrous Sulfate (Ferrous Sulfate) 325 mg DAILY PO 12/08/24 09:00 01/07/25 08:59 12/08/24 09:54 325 MG Folic Acid (FOLic ACID 1 MG TABLET) 1 mg DAILY PO 12/08/24 09:00 12/07/24 13:29 DC Folic Acid (FolVITE 5 MG/ML VIAL) 1 mg DAILY IV 12/08/24 14:00 01/07/25 13:59 Levofloxacin/ Dextrose 100 ml @ 100 mls/hr Q48H IV 12/07/24 13:00 12/17/24 12:59 12/07/24 12:52 100 MLS/HR Octreotide Acetate 1250 mcg/ Sodium Chloride 250 ml @ 0 mls/hr PROTOCOL IV 12/07/24 10:00 01/06/25 09:59 12/07/24 10:46 5 MLS/HR Ondansetron HCl (zoFRAN 4MG INJ) 4 mg Q6H PRN IVP NAUSEA/VOMITING 12/07/24 12:00 01/06/25 11:59 12/07/24 11:45 4 MG Pantoprazole Sodium 80 mg/ Sodium Chloride 100 ml @ 10 mls/hr Q10H IV 12/07/24 10:00 01/06/25 09:59 12/08/24 04:26 10 MLS/HR Phytonadione 10 mg/Sodium Chloride 51 ml @ 100 mls/hr Q24H IVPB 12/07/24 14:30 01/06/25 14:29 12/07/24 14:37 100 MLS/HR Phytonadione 10 mg/Sodium Chloride 51 ml @ 100 mls/hr Q24H IVPB 12/08/24 14:00 12/07/24 14:28 DC Polyethylene Glycol (MIRalax 3350 17 GM POWD.PACK) 17 gm DAILY PO 12/08/24 09:00 01/07/25 08:59 12/08/24 09:54 17 GM Thiamine HCl (Vitamin B-1) 100 mg DAILY PO 12/08/24 09:00 12/07/24 13:27 DC Thiamine HCl (Vitamin B-1) 300 mg DAILY IVP 12/08/24 14:00 12/11/24 13:59 Diagnostics / Radiology: [COPY/PASTE HERE IF NO REPORTS PLEASE DELETE SECTION] Assessment: [Melena Concern for GI bleed Anemia hx CABG ] Plan: Case discussed with Dr. Diego [NPo after midnight Plan for EGD in am Recommend trending HGB every 6 hours and transfuse as needed to goal HGB>7 Please call with questions, concerns,change in clinical status, any s/s of overt GI bleeding. Thank you for this consult. ] EMILIANO MANCIA NP Dec 08, 2024 15:30
--- NOTE | 2024-12-08 15:50 | NUR ---
I gave report to MARIPOSA Arteaga and transferred patient to room 220. patient voiced no discomfort and denies pain at this time.
[2024-12-08] MEDS: THIAMINE HCL 100 MG/ML 2ML VIAL IVP SCH (15:54)
--- NOTE | 2024-12-08 16:34 | CONS ---
[facility] CARDIOLOGY CONSULTATION REPORT Cardiology consultation note dictated for Zuhair Lockhart MD Primary skidder runner: Nataliia Gannon MD Date Patient Seen: Dec 08, 2024 Requesting Physician: PAVITHRA Diop Reason for Consultation: Suspected Cardiomyopathy History of Present Illness: This is a 69-year-old female with a past medical history of blindness, hypertension, diabetes mellitus type 2, chronic kidney disease stage II, paroxysmal atrial fibrillation on chronic anticoagulation with Xarelto, sinus bradycardia, pulmonary hypertension, coronary artery disease status post CABG x 4 in 11/2009, Lexiscan stress test in 03/26/2024 revealed large zones of rever sible anterior, apical, inferior, and lateral wall ischemia, C/coronary angiogram on 07/23/2024 demonstrated severe three-vessel CAD, patent 4/4 grafts LI-OM, SVG-LAD, SVG-D1, radial graft to PLVB, patent radial artery stent, and bilateral nonobstructive renal artery stenosis, 2D echo on 04/23/2024 with an LVEF of 60%, grade 3 diastolic dysfunction, [id number]-[id number] aortic stenosis with APRIL 1.3 cm2, AV peak of 22.3 mmHg, AV mean of 10.9 mmHg, severe posterior MAC with mild MR, rphf-uk-ilzymdgg calcific nonrheumatic mitral stenosis with a MVA of 1.4cm2, MV peak of 13.2 mmHg, and MV mean of 3 mmHg, moderate TR, and RVSP of 50-60 mmHg, anxiety, depression, obesity status post gastric bypass in 2021 and ERCP on 11/18/2024 with stone removed from the biliary tree who presented to the ED with complaints of vomiting, diarrhea, general body weakness, disorientation, and shortness of breath for approximately 1 month. HGB on admission of 4.7 with an HCT of 15.5. (Hgb of 10.1 on 11/16/2024). The patient's admitted to black stools but attributed it to Pepto-Bismol. The patient is status post blood transfusion. Repeat HGB of 7.2 and HCT of 23.0. CT of the abdomen pelvis on 12/07/2024 revealed enterocolitis. Pending an occult stool sample and bleeding scan. She was also found to have an GENNA on CKD stage II. D-dimer was elevated at 2380. Cardiology has been consulted for suspected cardiomyopathy. Troponin of 1055, 1119, and 1034. EKG on admission demonstrated sinus bradycardia with a heart rate of 52 bpm, no acute ischemia noted. The patient denied chest pain, chest pressure, palpitations, dizziness, or shortness of breath. Pending 2D echocardiogram. Past Medical History: PER HPI AND SUMMARIZED BELOW Past Surgical History: HYSTERECTOMY BARIATRIC SURGERY CHOLECYSTECTOMY CABG X4 IN 11/2009 Family History: NONCONTRIBUTORY Social History: The patient lives with her . Habits: The patient denies alcohol, tobacco, or illicit drug use. Home Meds: GABAPENTIN 100 MG Q.H.S. TYLENOL NO. 3 EVERY 4 HOURS P.R.N. BUSPIRONE 10 MG Q.H.S. MIRTAZAPINE 45 MG Q.H.S. ESCITALOPRAM 10 MG DAILY LASIX 20 MG DAILY AMIODARONE 200 MG DAILY AMLODIPINE 5 MG Q.H.S. HYDRALAZINE 25 MG DAILY PRAVASTATIN 80 MG DAILY XARELTO 20 MG DAILY WITH DINNER Current Meds: Medications Dose Ordered Sig/Stephen Start Time Stop Time Status Last Admin Polyethylene Glycol 17 gm DAILY 12/08/24 09:00 01/07/25 08:59 12/08/24 09:54 Ferrous Sulfate 325 mg DAILY 12/08/24 09:00 01/07/25 08:59 12/08/24 09:54 Acetaminophen 650 mg Q6H PRN 12/07/24 10:00 01/06/25 09:59 Acetaminophen 650 mg Q6H PRN 12/07/24 10:00 01/06/25 09:59 Pantoprazole Sodium 80 mg/ Sodium Chloride 100 ml @ 10 mls/hr Q10H 12/07/24 10:00 01/06/25 09:59 12/08/24 04:26 Octreotide Acetate 1250 mcg/ Sodium Chloride 250 ml @ 0 mls/hr PROTOCOL 12/07/24 10:00 01/06/25 09:59 12/07/24 10:46 Ondansetron HCl 4 mg Q6H PRN 12/07/24 12:00 01/06/25 11:59 12/07/24 11:45 Levofloxacin/ Dextrose 100 ml @ 100 mls/hr Q48H 12/07/24 13:00 12/17/24 12:59 12/07/24 12:52 Folic Acid 1 mg DAILY 12/08/24 14:00 01/07/25 13:59 12/08/24 15:54 Thiamine HCl 300 mg DAILY 12/08/24 14:00 12/11/24 13:59 12/08/24 15:54 Phytonadione 10 mg/Sodium Chloride 51 ml @ 100 mls/hr Q24H 12/07/24 14:30 01/06/25 14:29 12/08/24 15:54 Acetaminophen/ Codeine Phosphate 1 tab Q4H 12/08/24 16:30 01/07/25 16:29 UNV Amlodipine Besylate 5 mg HS 12/08/24 21:00 01/07/25 20:59 Furosemide 20 mg DAILY 12/09/24 09:00 01/08/25 08:59 Gabapentin 100 mg HS 12/08/24 21:00 01/07/25 20:59 Buspirone HCl 10 mg HS 12/08/24 21:00 01/07/25 20:59 Citalopram Hydrobromide 40 mg DAILY 12/09/24 09:00 01/08/25 08:59 Mirtazapine 45 mg HS 12/08/24 21:00 01/07/25 20:59 Atorvastatin Calcium 20 mg DAILY 12/09/24 09:00 01/08/25 08:59 Review of Systems: CONST: No fever, fatigue, or weight changes. EYES: No recent vision problems. ENT: No congestion, ear pain, or sore throat. C/V: No chest pain, palpitations, or edema. RESP: No cough, congestion, wheezing or shortness of breath. GI: No abdominal pain, nausea, vomiting, constipation, or diarrhea. : No incontinence or dysuria. SKIN: No rash. NEURO: No headache, focal numbness or weakness, dizziness, or seizures. PSYCH: No depression or anxiety. HEME: No abnormal bruising or bleeding. LYMPH: No swollen glands. Physical Examination: GENERAL: No acute distress. Pallor noted. HEAD: Normal with no signs of head trauma. EYES: PERRLA, EOMI, conjunctiva and sclera normal. ENT: Hearing grossly intact, normal oropharynx. NECK: Supple without JVD. There is no tenderness, lymphadenopathy, or masses. No thyromegaly. Normal carotid upstrokes without bruits. LUNGS: Clear breath sounds bilaterally. No wheezes, or rhonchi. HEART: Normal rate and rhythm. Normal S1 and S2 without gallop or rub. 2/6 HEATHER to the RUSB that radiates to the carotids. VASC: Peripheral pulses +2 bilaterally. ABD: Bowel sounds normal, soft, nontender, no masses, no organomegaly. No audible bruits. : Not examined LYMPH: No lymphadenopathy noted. EXT: No clubbing, cyanosis or edema. SKIN: No rashes or lesions noted. NEURO: Awake, alert, and oriented x3. No focal sensory or strength deficits noted. Vital Signs (last 8hr) Date Time Temp Pulse Resp B/P (MAP) Pulse Ox O2 Delivery O2 Flow Rate FiO2 12/08/24 15:58 100 Nasal Cannula* 2 28 12/08/24 15:11 46 12 143/56 100 12/08/24 15:00 46 17 97 12/08/24 14:45 46 16 99 12/08/24 14:41 47 17 156/64 99 12/08/24 14:30 46 17 99 12/08/24 14:28 58 20 N/Cannula Low lpm 2.0 28 12/08/24 14:15 48 14 100 12/08/24 14:11 50 14 161/69 99 12/08/24 14:00 48 14 100 12/08/24 13:45 48 14 98 12/08/24 13:41 48 14 138/54 99 12/08/24 13:30 50 14 100 12/08/24 13:15 45 12 100 12/08/24 13:11 46 12 153/51 100 12/08/24 13:00 46 12 100 12/08/24 12:45 47 13 100 12/08/24 12:41 47 12 148/64 100 12/08/24 12:30 47 15 99 12/08/24 12:15 48 16 99 12/08/24 12:15 48 16 99 12/08/24 12:11 47 19 151/61 100 12/08/24 12:00 48 19 100 12/08/24 10:15 49 12 98 12/08/24 10:12 49 15 137/101 99 12/08/24 10:00 50 19 100 12/08/24 09:45 50 19 100 12/08/24 09:41 48 19 142/53 99 12/08/24 09:30 47 22 99 12/08/24 09:15 47 11 99 Nasal Cannula 2.0 12/08/24 09:11 47 12 136/51 100 Nasal Cannula 2.0 12/08/24 09:00 47 10 100 Nasal Cannula 2.0 12/08/24 08:45 48 13 100 Nasal Cannula 2.0 12/08/24 08:41 48 15 150/53 100 Nasal Cannula 2.0 12/08/24 08:30 48 14 100 Nasal Cannula 2.0 Laboratory: Hematology Labs: Test 12/08/24 04:15 12/07/24 09:09 Range/Units White Blood Count 6.1 4.8-10.8 K/uL Red Blood Count 2.37 #L 4.00-5.50 MIL/uL Hemoglobin 7.2 L 12.0-16.0 g/dL Hematocrit 23.0 L 36-48 % Mean Corpuscular Volume 97.0 79-99 fL Mean Corpuscular Hemoglobin 30.4 27.0-33.0 pg Mean Corpuscular Hemoglobin Concent 31.3 L 32.0-36.0 g/dL Red Cell Distribution Width 20.2 H 11.0-15.5 % Platelet Count 194 # 130-400 K/uL Mean Platelet Volume 11.6 H 7.5-10.5 fL Immature Granulocyte % (Auto) 0.7 0-1 % Neutrophils (%) (Auto) 83.7 H 40.0-77.0 % Lymphocytes (%) (Auto) 7.4 L 21.0-51.0 % Monocytes (%) (Auto) 6.1 3.0-13.0 % Eosinophils (%) (Auto) 1.8 0.0-8.0 % Basophils (%) (Auto) 0.3 0.0-5.0 % Neutrophils # (Auto) 5.1 1.8-7.7 K/uL Lymphocytes # (Auto) 0.5 L 1.0-4.8 K/uL Monocytes # (Auto) 0.4 0.1-1.0 K/uL Eosinophils # (Auto) 0.11 0.00-0.70 K/uL Basophils # (Auto) 0.02 0.00-0.20 K/uL Absolute Immature Granulocyte (auto 0.04 0-1 K/uL Nucleated Red Blood Cells 0.8 H 0.0-0.19 % White Cell Morphology Comment See comments Red Blood Cell Morphology See comments Chemistry Labs: Test 12/08/24 04:15 12/07/24 22:21 12/07/24 19:17 12/07/24 09:09 Range/Units Sodium Level 143 136-145 mmol/L Potassium Level 4.3 3.5-5.1 mmol/L Chloride Level 111 101-111 mmol/L Carbon Dioxide Level 21 21-32 mmol/L Blood Urea Nitrogen 55 H 7-18 mg/dL Creatinine 2.2 H 0.5-1.0 mg/dL Glomerular Filtration Rate Calc 24 >90 mL/min Random Glucose 104 70-105 mg/dL Total Calcium 7.3 L 8.5-10.1 mg/dL Phosphorus Level 4.7 2.5-4.9 mg/dL Magnesium Level 2.00 1.80-2.40 mg/dL Total Bilirubin 0.5 # 0.2-1.0 mg/dL Aspartate Amino Transf (AST/SGOT) 77 H 10-37 U/L Alanine Aminotransferase (ALT/SGPT) 45 12-78 U/L Alkaline Phosphatase 79 50-136 U/L Total Protein 4.9 L 6.0-8.3 g/dL Albumin 2.1 #L 3.5-5.0 g/dL Folic Acid (LAB) > 20.00 H 2-20 ng/mL Procalcitonin < 0.05 L 0.05-0.5 ng/mL Thyroid Stimulating Hormone (TSH) 1.54 0.36-3.74 uIU/mL Total Creatine Kinase 187 21-232 U/L Troponin I High Sensitivity 1034.7 *H 4-50 ng/L Lactic Acid Level 1.1 0.8-2.5 mmol/L Direct Bilirubin 0.2 0.0-0.3 mg/dL Lipase 37 16-77 U/L Coagulation Labs: Test 12/08/24 04:15 12/07/24 09:09 Range/Units D-Dimer Quantitative (PE/DVT) 2380 *H 0-500 ng/mL Prothrombin Time 15.0 H 9.6-11.6 SEC Prothromb Time International Ratio 1.47 H 0.85-1.15 Activated Partial Thromboplast Time 28.7 26.3-35.5 SEC Diagnostics / Radiology: Impression and Plan: GI bleed Acute blood loss anemia Enterocolitis via CT of the abd/pelvis on 12/07/2024 GENNA on CKD stage 2 NSTEMI, Type II Paroxysmal atrial fibrillation on chronic anticoagulation with Xarelto Hypertension Diabetes mellitus type 2 Pulmonary hypertension CAD s/p CABG x 4 in 11/2009 Lexiscan stress test in 03/26/2024 revealed large zones of reversible anterior, apical, inferior, and lateral wall ischemia LHC/coronary angiogram on 07/23/2024 demonstrated severe three-vessel CAD, patent 4/4 grafts LI-OM, SVG-LAD, SVG-D1, radial graft to PLVB, patent radial artery stent, and bilateral nonobstructive renal artery stenosis 2D echo on 04/23/2024 with an LVEF of 60%, grade 3 diastolic dysfunction, wwga-xj-hqkpzlmr aortic stenosis with APRIL 1.3 cm2, AV peak of 22.3 mmHg, AV mean of 10.9 mmHg, severe posterior MAC with mild MR, ywny-jv-tnbnddqm calcific nonrheumatic mitral stenosis with a MVA of 1.4cm2, MV peak of 13.2 mmHg, and MV mean of 3 mmHg, moderate TR, and RVSP of 50-60 mmHg Anxiety Depression Obesity status post gastric bypass in 2021 ERCP on 11/18/2024 with stone removed from the biliary tree NSTEMI, Type II Troponin of 1055, 1119, and 1034 LHC/coronary angiogram on 07/23/2024 demonstrated severe three-vessel CAD, patent 4/4 grafts LI-OM, SVG-LAD, SVG-D1, radial graft to PLVB, and a patent radial artery stent -The patient is not a candidate for beta mulu therapy due to resting bradycardia with heart rates in the 40s. Do not continue Amiodarone upon discharge. -Recommend medical management, continue Statin -Pending 2D echocardiogram. Paroxysmal atrial fibrillation Currently sinus bradycardia hr 40's -No AV archie blocking agents -Hold Xarelto -If patient converts to Afib with RVR, may utilize PRN IV Lopressor Patient is seen and examined. Currently continue to hold Xarelto. Echo mainly to document preserved LVEF as non-STEMI was likely type 2 infarct secondary to severe anemia. In regards to valvular heart disease for review echo and continue with conservative management. ROSEANNE SCHERER LINE DEPARTMENT SUPERVISOR Dec 08, 2024 16:34 ZUHAIR LOCKHART MD Dec 08, 2024 18:32
--- NOTE | 2024-12-08 18:41 | PN ---
[facility] PROGRESS NOTE Date Patient Seen: Dec 08, 2024 Time of Visit: 18:39 Supervising Physician: Dr Palencia Primary Care Physician: Ryley Worley MD Outpatient Specialists: Inpatient Consults: [place] PROBLEM LIST: Acute on chronic microcytic anemia, POA GENNA POA NSTEMI type 2 POA Acute hypoxemic respiratory failure, POA Hypovolemia 2/2 acute anemia, POA Lactic acidosis, POA, resolved Hyperglycemia in the presence of type 2 diabetes mellitus Moderate hypoalbuminemia Mild hypoproteinemia Chronic anticoagulants with Xarelto for AFib, POA Transaminitis Ascites Comorbidities: Gastric Bypass surgery in 2002 Type 2 diabetes mellitus Essential hypertension Hyperlipidemia History of atrial fibrillation on Xarelto last dose on 12/02/24 Gastritis Reason ERCP on 11/18/24 with findings of choledocholithiasis with complete removal accomplished by biliary sphincterotomy INTERVAL HISTORY: Patient has been seen and examined, nursing reports no acute events overnight. Patient is alert and oriented x3. Patient's hemoglobin 7.2 this morning, platelets are 194. Pending a bleeding scan. She is off any pressors. Her vital signs have been stable and hemoglobin stable for 24 hours. Currently NPO for the bleeding scan. Good saturations on room air. Continues on Protonix and Sandostatin. Plan: We will continue with telemetry. We are pending Cardiology consultation. We are following her troponin levels that remained elevated. We have added statin, pending echocardiogram and cardiology consult Holding beta blockers due to her bradycardia Follow post bleeding scan Follow GI recs Monitoring for any signs of bleeding, transfusions if needed. REVIEW OF SYSTEMS: Const: Positive for fatigue Eyes: no recent vision problems ENT: No congestion, ear pain, or sore throat C/V: no chest pain, palpitations or edema Resp: No cough, congestion, wheezing , or Shortness of breath GI: Positive for [Nausea no constipation or diarrhea. : No incontinence of or dyuria M/S: No joint or pain swelling Skin: No rash Neuro: no headache, focal numbness, or weakness, dizziness or seizures Psych: no depression or anxiety Heme: no abnormal bruising or bleeding Lymph: no swollen glands PHYSICAL EXAM: GENERAL: alert, weak, awake oriented x 3 HEENT: EOMI, Sclera non icteric, moist mucosa NECK: Supple, no JVD, trachea midline LUNGS: Clear breath sounds bilaterally. No wheezes HEART: Regular rate and rhythm. Normal S1 and S2, without murmurs ABD: Abdomen soft, nontender. Bowel sounds present EXT: No clubbing cyanosis or edema NEURO: Alert and oriented to person, follows commands Vital Signs (last 8hr) Date Time Temp Pulse Resp B/P (MAP) Pulse Ox O2 Delivery O2 Flow Rate FiO2 12/08/24 16:00 98.1 47 18 124/54 98 Nasal Cannula 2.0 12/08/24 15:58 100 Nasal Cannula* 2 28 12/08/24 15:11 46 12 143/56 100 12/08/24 15:00 46 17 97 12/08/24 14:45 46 16 99 12/08/24 14:41 47 17 156/64 99 12/08/24 14:30 46 17 99 12/08/24 14:28 58 20 N/Cannula Low lpm 2.0 12/08/24 14:15 48 14 100 12/08/24 14:11 50 14 161/69 99 12/08/24 14:00 48 14 100 12/08/24 13:45 48 14 98 12/08/24 13:41 48 14 138/54 99 12/08/24 13:30 50 14 100 12/08/24 13:15 45 12 100 12/08/24 13:11 46 12 153/51 100 12/08/24 13:00 46 12 100 12/08/24 12:45 47 13 100 12/08/24 12:41 47 12 148/64 100 12/08/24 12:30 47 15 99 12/08/24 12:15 48 16 99 12/08/24 12:15 48 16 99 12/08/24 12:11 47 19 151/61 100 12/08/24 12:00 48 19 100 12/08/24 12:00 98.4 LABS: Hematology Labs: Test 12/08/24 04:15 12/07/24 09:09 Range/Units White Blood Count 6.1 4.8-10.8 K/uL Red Blood Count 2.37 #L 4.00-5.50 MIL/uL Hemoglobin 7.2 L 12.0-16.0 g/dL Hematocrit 23.0 L 36-48 % Mean Corpuscular Volume 97.0 79-99 fL Mean Corpuscular Hemoglobin 30.4 27.0-33.0 pg Mean Corpuscular Hemoglobin Concent 31.3 L 32.0-36.0 g/dL Red Cell Distribution Width 20.2 H 11.0-15.5 % Platelet Count 194 # 130-400 K/uL Mean Platelet Volume 11.6 H 7.5-10.5 fL Immature Granulocyte % (Auto) 0.7 0-1 % Neutrophils (%) (Auto) 83.7 H 40.0-77.0 % Lymphocytes (%) (Auto) 7.4 L 21.0-51.0 % Monocytes (%) (Auto) 6.1 3.0-13.0 % Eosinophils (%) (Auto) 1.8 0.0-8.0 % Basophils (%) (Auto) 0.3 0.0-5.0 % Neutrophils # (Auto) 5.1 1.8-7.7 K/uL Lymphocytes # (Auto) 0.5 L 1.0-4.8 K/uL Monocytes # (Auto) 0.4 0.1-1.0 K/uL Eosinophils # (Auto) 0.11 0.00-0.70 K/uL Basophils # (Auto) 0.02 0.00-0.20 K/uL Absolute Immature Granulocyte (auto 0.04 0-1 K/uL Nucleated Red Blood Cells 0.8 H 0.0-0.19 % White Cell Morphology Comment See comments Red Blood Cell Morphology See comments Chemistry Labs: Test 12/08/24 04:15 12/07/24 22:21 12/07/24 19:17 12/07/24 09:09 Range/Units Sodium Level 143 136-145 mmol/L Potassium Level 4.3 3.5-5.1 mmol/L Chloride Level 111 101-111 mmol/L Carbon Dioxide Level 21 21-32 mmol/L Blood Urea Nitrogen 55 H 7-18 mg/dL Creatinine 2.2 H 0.5-1.0 mg/dL Glomerular Filtration Rate Calc 24 >90 mL/min Random Glucose 104 70-105 mg/dL Total Calcium 7.3 L 8.5-10.1 mg/dL Phosphorus Level 4.7 2.5-4.9 mg/dL Magnesium Level 2.00 1.80-2.40 mg/dL Total Bilirubin 0.5 # 0.2-1.0 mg/dL Aspartate Amino Transf (AST/SGOT) 77 H 10-37 U/L Alanine Aminotransferase (ALT/SGPT) 45 12-78 U/L Alkaline Phosphatase 79 50-136 U/L Total Protein 4.9 L 6.0-8.3 g/dL Albumin 2.1 #L 3.5-5.0 g/dL Folic Acid (LAB) > 20.00 H 2-20 ng/mL Procalcitonin < 0.05 L 0.05-0.5 ng/mL Thyroid Stimulating Hormone (TSH) 1.54 0.36-3.74 uIU/mL Total Creatine Kinase 187 21-232 U/L Troponin I High Sensitivity 1034.7 *H 4-50 ng/L Lactic Acid Level 1.1 0.8-2.5 mmol/L Direct Bilirubin 0.2 0.0-0.3 mg/dL Lipase 37 16-77 U/L Coagulation Labs: Test 12/08/24 04:15 12/07/24 09:09 Range/Units D-Dimer Quantitative (PE/DVT) 2380 *H 0-500 ng/mL Prothrombin Time 15.0 H 9.6-11.6 SEC Prothromb Time International Ratio 1.47 H 0.85-1.15 Activated Partial Thromboplast Time 28.7 26.3-35.5 SEC DIAGNOSTICS / RADIOLOGY RESULTS: [ ] PLAN NEURO: Minimize central acting medications as possible. Fall Precautions. Well lighted room through the day and minimize interruptions through the night to prevent acute delirium. PULMONARY: Supplemental 02 as needed Titrate Fio2 to keep Spo2 > or = 90% DuoNebs and CPT as needed IS hourly while awake for pulmonary hygiene Out of bed to chair as tolerated CARDIOVASCULAR: Follow hemodynamics. Titrate vasopressor to keep MAP >65 or systolic blood pressure >95mmHg DRIPS: protonix and sandostatin LINES: PIV GI & NUTRITION: Continue nutritional support Aspirations precautions Prokinetic agents and laxatives as needed KIDNEYS & ELECTROLYTES: Strict monitoring of intake and output Daily weights Avoid nephrotoxic agents Monitor electrolytes and replace as needed Goal urine output of 30mL/hr or 0.5mL/kg/hr Urine output: [ ] Fluid Balance: [ ] ENDOCRINE: Maintain blood glucose between 100-180 at all times. Insulin sliding scale for blood glucose management INFECTIOUS DISEASE: Trend temperature. Main-culture if febrile. Micro: [ ] Antibiotics: [ ] Rocephin HEMATOLOGY & COAGULATION: Monitor H&H. Keep Hgb > 7 Transfuse 1 unit of PRBC for Hgb < 7 Transfuse 1 pack of platelets of platelets < 20, 000 Watch for any signs and symptoms of bleeding SKIN: Pressure ulcer prevention per facility protocol Rehab: PT/OT Prophylaxis: GI: Protonix DVT: SCDs Code Status: Full Resuscitation Disposition: ICU Other: Total patient critical care time 42 minutes excluding all procedures. Case was discussedwith my supervising physician. The above plan was formulated and agreed upon. FABIAN WARD Dec 08, 2024 18:41
[2024-12-08] MEDS: amLODIPine 5 MG TAB PO SCH (20:50)
[2024-12-09] VITALS (22 sets, daily range): BP systolic 124–154; BP diastolic 48–78; PULSE 47–78; RESP 12–20; TEMP 97.3–98.7; O2SAT 98–100
[2024-12-09 07:27] LABS: NUCLEATED RED BLOOD CELLS 0.8 % (0.0-0.19); PLATELET COUNT (AUTO) 180.0 K/uL (130-400); RED BLOOD CELL COUNT(AUTO) 2.53 MIL/uL (4.00-5.50); RED CELL DISTRIBUTION WIDTH 20.7 % (11.0-15.5); WHITE BLOOD COUNT (AUTO) 6.0 K/uL (4.8-10.8)
[2024-12-09 07:39] LABS: CREATININE 1.4 mg/dL (0.5-1.0); GLOMERULAR FILTR. RATE CALC 41.0 mL/min (>90); GLUCOSE,RANDOM 62.0 mg/dL (70-105); SODIUM SERUM 143.0 mmol/L (136-145); UREA NITROGEN, BLOOD 36.0 mg/dL (7-18)
--- NOTE | 2024-12-09 07:42 | PN ---
PROBLEM LIST: * Severe anemia, hemoglobin of less than 5 with GI bleeding. * History of enterocolitis by CT scan of the abdomen and pelvis, 12/07/2024. * Acute kidney injury. 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 * Legal blindness. * History of paroxysmal atrial fibrillation, on full chronic anticoagulation with Xarelto, currently on hold. * Hypertension. * Pulmonary hypertension. * Status post coronary artery bypass graft surgery x 4 in 2009. * Abnormal Lexiscan, 03/2024, revealing large zones of reversible ischemia. * Cardiac catheterization in 07/2024 demonstrated severe coronary artery disease with patent 4/4 grafts, LI to the OM, saphenous vein graft to the LAD, saphenous vein graft to the first diagonal, and a radial artery bypass to the posterior left ventricular branch and a patent radial artery stent with no other significant stenotic lesions. * History of nonobstructive bilateral renal artery stenosis. Echocardiography in 04/2024 documenting preserved LV systolic function with grade 3 diastolic dysfunction with jpgs-zb-qukfyogu aortic stenosis with a valve area of 1.3 cm2 and a peak gradient of 22.3 mmHg and a mean gradient of 11 mmHg with zlft-lj-tetvilwq mitral stenosis with a mitral valve area of 1.4 cm2 and a right ventricular systolic pressure of 55 mmHg. * History of anxiety. * History of depression. * History of obesity, status post remote gastric bypass surgery. * Status post ERCP-guided removal of a biliary tree stone in 11/2024. 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 SUBJECTIVE: This patient has been hospitalized predominantly because of marked weakness and fatigue. Her initial hemoglobin was 4.7. She has been managed with transfusion and stabilization. Currently, the patient is comfortable, has no complaints. Her vital signs have been stable. She is afebrile. Her heart rate is in the 40s and 50s. Blood pressure is in the 125-140 systolic range. She is saturating at 99%-100% on 2 L of nasal cannula. Laboratory studies this morning have revealed a sodium of 143 and a potassium of 4.3. The patient's chloride is 111, CO2 is 21, her BUN is 55 with a creatinine of 2.2, and a GFR of 24. The patient's random glucose is 104. The total calcium is 7.3; however, the albumin is also low at 2.1, commensurate with that degree of calcium reduction. The patient's folic acid is more than 20. TSH is 1.54. The AST is mildly elevated at 77 with a normal ALT and a normal alkaline phosphatase. White count of 6.1, H and H are up to 7.2 and 23.0 from 4.7 and 15.5 on admission. The patient's platelet count is 194,000. This patient is currently maintained on atorvastatin, citalopram, furosemide, mirtazapine, buspirone, gabapentin, amlodipine, thiamine, folic acid, iron, MiraLax, levothyroxine, and p.r.n. medications. PLAN: From a cardiac standpoint, the patient will be managed medically. We will continue to observe her. I am concerned about her renal status. I will obtain urine chemistries, and I will also obtain an ultrasound duplex of the renal arteries. The patient had a GI bleeding scan, the results of which are pending. She is scheduled to undergo an endoscopy by the GI team today. We will continue to hold Xarelto to redefine the source of bleeding until the patient's status stabilizes. The patient may benefit from a Nephrology assessment given her deteriorating renal function. Her laboratory studies will be repeated again tomorrow. TID: [id number] RECEIPT: [id number]
--- NOTE | 2024-12-09 10:45 | NUR ---
PT HAS BEEN NPO FOR EGD PROCEDURE AND WAS TAKEN TO GI LAB BY GI LAB STAFF.
[2024-12-09] MEDS: DEXTROSE 50%-WATER 50 ML DISP.SYRIN IV ONE (11:04)
--- NOTE | 2024-12-09 19:32 | PN ---
[facility] PROGRESS NOTE Date Patient Seen: Dec 09, 2024 Time of Visit: 19:29 Supervising Physician: Dr Palencia Primary Care Physician: Ryley Worley MD Outpatient Specialists: Inpatient Consults: BIS PROBLEM LIST: Acute on chronic microcytic anemia, POA GENNA POA NSTEMI type 2 POA Acute hypoxemic respiratory failure, POA Hypovolemia 2/2 acute anemia, POA Lactic acidosis, POA, resolved Hyperglycemia in the presence of type 2 diabetes mellitus Moderate hypoalbuminemia Mild hypoproteinemia Chronic anticoagulants with Xarelto for AFib, POA Transaminitis Ascites Comorbidities: Gastric Bypass surgery in 2002 Type 2 diabetes mellitus Essential hypertension Hyperlipidemia History of atrial fibrillation on Xarelto last dose on 12/02/24 Gastritis Reason ERCP on 11/18/24 with findings of choledocholithiasis with complete removal accomplished by biliary sphincterotomy INTERVAL HISTORY: Patient has been seen and examined, nursing reports no acute events overnight. Patient is alert and oriented, sitting comfortably in bed, she is NPO for EGD plan for this morning. Patient was seen evaluated by Cardiology, pending a renal artery ultrasound, along with urinary analysis in a.m.. Echocardiogram is pending. Patient reporting no pain or discomfort. Vital signs are stable Afebrile Plan: Follow GI recs, we will follow post EGD Follow cardiology recs Telemetry Monitoring for signs of bleeding, transfuse if needed Follow echo REVIEW OF SYSTEMS: Const: Positive for fatigue Eyes: no recent vision problems ENT: No congestion, ear pain, or sore throat C/V: no chest pain, palpitations or edema Resp: No cough, congestion, wheezing , or Shortness of breath GI: Positive for [Nausea no constipation or diarrhea. : No incontinence of or dyuria M/S: No joint or pain swelling Skin: No rash Neuro: no headache, focal numbness, or weakness, dizziness or seizures Psych: no depression or anxiety Heme: no abnormal bruising or bleeding Lymph: no swollen glands PHYSICAL EXAM: GENERAL: alert, weak, awake oriented x 3 HEENT: EOMI, Sclera non icteric, moist mucosa NECK: Supple, no JVD, trachea midline LUNGS: Clear breath sounds bilaterally. No wheezes HEART: Regular rate and rhythm. Normal S1 and S2, without murmurs ABD: Abdomen soft, nontender. Bowel sounds present EXT: No clubbing cyanosis or edema NEURO: Alert and oriented to person, follows commands Vital Signs (last 8hr) Date Time Temp Pulse Resp B/P (MAP) Pulse Ox O2 Delivery O2 Flow Rate FiO2 12/09/24 19:03 98.4 68 20 137/64 98 Nasal Cannula 2.0 12/09/24 17:00 78 20 132/68 97 Nasal Cannula 2.0 12/09/24 16:54 62 20 N/Cannula Low lpm 2.0 28 12/09/24 16:00 97.9 77 126/57 Nasal Cannula 2.0 12/09/24 15:00 72 18 131/66 98 Nasal Cannula 2.0 12/09/24 14:30 70 18 124/62 98 Nasal Cannula 2.0 12/09/24 14:00 53 18 138/57 96 Nasal Cannula 2.0 12/09/24 13:45 55 18 135/64 99 Nasal Cannula 2.0 12/09/24 13:30 55 16 130/65 98 Nasal Cannula 2.0 12/09/24 13:15 53 18 138/52 95 Nasal Cannula 2.0 12/09/24 13:10 97.3 55 18 126/56 96 Nasal Cannula 2.0 12/09/24 12:55 97.3 49 13 140/50 97 Nasal Cannula 2.0 12/09/24 12:50 50 12 154/53 96 Nasal Cannula 2.0 12/09/24 12:45 51 12 151/56 99 Nasal Cannula 2.0 12/09/24 12:40 50 13 143/55 100 Nasal Cannula 3.0 12/09/24 12:35 49 12 139/54 100 Nasal Cannula 3.0 12/09/24 12:30 50 13 135/53 100 Nasal Cannula 3.0 12/09/24 12:25 97.5 52 12 126/48 100 Nasal Cannula 3.0 12/09/24 11:57 Mask 10.0 12/09/24 11:57 Mask LABS: Hematology Labs: Test 12/09/24 07:03 12/08/24 04:15 Range/Units White Blood Count 6.0 4.8-10.8 K/uL Red Blood Count 2.53 L 4.00-5.50 MIL/uL Hemoglobin 7.8 L 12.0-16.0 g/dL Hematocrit 25.2 L 36-48 % Mean Corpuscular Volume 99.6 H 79-99 fL Mean Corpuscular Hemoglobin 30.8 27.0-33.0 pg Mean Corpuscular Hemoglobin Concent 31.0 L 32.0-36.0 g/dL Red Cell Distribution Width 20.7 H 11.0-15.5 % Platelet Count 180 130-400 K/uL Mean Platelet Volume 11.7 H 7.5-10.5 fL Nucleated Red Blood Cells 0.8 H 0.0-0.19 % Immature Granulocyte % (Auto) 0.7 0-1 % Neutrophils (%) (Auto) 83.7 H 40.0-77.0 % Lymphocytes (%) (Auto) 7.4 L 21.0-51.0 % Monocytes (%) (Auto) 6.1 3.0-13.0 % Eosinophils (%) (Auto) 1.8 0.0-8.0 % Basophils (%) (Auto) 0.3 0.0-5.0 % Neutrophils # (Auto) 5.1 1.8-7.7 K/uL Lymphocytes # (Auto) 0.5 L 1.0-4.8 K/uL Monocytes # (Auto) 0.4 0.1-1.0 K/uL Eosinophils # (Auto) 0.11 0.00-0.70 K/uL Basophils # (Auto) 0.02 0.00-0.20 K/uL Absolute Immature Granulocyte (auto 0.04 0-1 K/uL White Cell Morphology Comment See comments Chemistry Labs: Test 12/09/24 12:58 12/09/24 07:03 12/08/24 04:15 12/07/24 22:21 Range/Units Whole Blood Glucose 79 70-110 MG/DL Sodium Level 143 136-145 mmol/L Potassium Level 3.9 3.5-5.1 mmol/L Chloride Level 111 101-111 mmol/L Carbon Dioxide Level 25 21-32 mmol/L Blood Urea Nitrogen 36 H 7-18 mg/dL Creatinine 1.4 H 0.5-1.0 mg/dL Glomerular Filtration Rate Calc 41 >90 mL/min Random Glucose 62 L 70-105 mg/dL Total Calcium 7.4 L 8.5-10.1 mg/dL Phosphorus Level 4.7 2.5-4.9 mg/dL Magnesium Level 2.00 1.80-2.40 mg/dL Total Bilirubin 0.5 # 0.2-1.0 mg/dL Aspartate Amino Transf (AST/SGOT) 77 H 10-37 U/L Alanine Aminotransferase (ALT/SGPT) 45 12-78 U/L Alkaline Phosphatase 79 50-136 U/L Total Protein 4.9 L 6.0-8.3 g/dL Albumin 2.1 #L 3.5-5.0 g/dL Folic Acid (LAB) > 20.00 H 2-20 ng/mL Procalcitonin < 0.05 L 0.05-0.5 ng/mL Thyroid Stimulating Hormone (TSH) 1.54 0.36-3.74 uIU/mL Total Creatine Kinase 187 21-232 U/L Troponin I High Sensitivity 1034.7 *H 4-50 ng/L Coagulation Labs: Test 12/08/24 04:15 Range/Units D-Dimer Quantitative (PE/DVT) 2380 *H 0-500 ng/mL DIAGNOSTICS / RADIOLOGY RESULTS: [ ] PLAN NEURO: Minimize central acting medications as possible. Maintain fall precautions, adequate lighting during the day PULMONARY: Supplemental 02 as needed. Maintain aspiration precautions at all times CARDIOVASCULAR: Follow hemodynamics. Vital signs per facility protocol GI & NUTRITION: Continue with nutritional support. Continue stool softeners and laxatives as needed. KIDNEYS & ELECTROLYTES: Strict monitoring of intake, output and overall fluid balance. Avoid nephrotoxic medications to the extent possible. Medications to be dosed according to renal function. Monitor electrolytes and replace as needed ENDOCRINE: Maintain blood glucose between 100-180 at all times. Hypoglycemia protocol in place INFECTIOUS DISEASE: Trend temperature, WBC and procalcitonin level Follow cultures, deescalate antibiotics as soon as possible. Panculture if new onset fever ONCOLOGY/HEMATOLOGY/COAGULATION: Monitor for s/s of bleeding Monitor hemoglobin, coagulation studies as needed SKIN: Pressure ulcer prevention per facility protocol Specialty mattress ORTHO/REHAB: Continue PT/OT Prophylaxis: Continue GI and DVT prophylaxis Code Status: Full Resuscitation Disposition: TBD Other: Total patient care time 39 minutes, excludes all procedures and educational FABIAN WARD Dec 09, 2024 19:32
--- NOTE | 2024-12-09 21:24 | HMCSR ---
APPROVED REPORT EXAM: Two-dimensional and M-mode echocardiogram with Doppler and color Doppler. INDICATION ICD: suspected cardiomyopathy 2D Dimensions RVDd3.8 cmLVEF(%)70.5 (>50%)LVED Vol(simp.)97.2 mL IVSd0.7 (0.7-1.1cm)FS(%)40 %LVES Vol(simp.)34.4 mL LVDd4.4 (3.8-5.6cm)LA (2D)4.2 (1.6-4.0cm)LVEF(%, simp.)65 % PWd1.2 (0.7-1.1cm)Ao Root(2D)2.8 (2.0-3.7cm)LA ESV INDEX (BP)57.04 mL/m2 LVDs2.7 (2.5-4.0cm)LVOT diam1.8 (1.8-2.4cm) IVC diam2.2 cm M-Mode Dimensions EPSS0.6 cm LA (MM)4.5 (1.6-4.0cm) Ao Root(MM)3.3 (2.0-3.7cm) Aortic Valve AoV Vmax2.1 m/[place]elin Peak GR17.2 mmHgLVOT Vmax1.1 m/s AoV VTI0.6 mAo Mean GR9.4 mmHgLVOT VTI0.31 m APRIL (VMAX)1.37 cm2AVA (VTI) 1.5 cm2 Mitral Valve MV E Vmax58.2 cm/sDECEL Rong595 ms MV A Vmax57.9 cm/sP 1/2 T66 ms E/A ratio1.0MVA (PHT)3.3 cm2 TDI E/E' Medial9.9E/E' Lateral8.6 Medial E' Peak V5.87 cm/sLateral E' Peak V6.78 cm/s Pulmonary Valve PV Vmax1.0 m/sPV VTI0.29 mPV Mean GR2.6 mmHg PV Peak GR4.0 mmHgPI End Amy. Tariq 128.6 cm/s Tricuspid Valve TR Vmax3.9 m/sRAP (EST) 8 qzFjHIDN37.6 mmHg TR Peak GR62.6 mmHg Left Ventricle The left ventricle is normal size. Anteroapical hypokinesis. Mild concentric left ventricular hypertr ophy. LVEF is 60-65%. Stage II diastolic dysfunction. Right Ventricle The right ventricle is normal size. Right ventricular systolic function is mildly reduced. Atria The left atrium is severely dilated, with the LV ESV of 57 mL/m2. The right atrium size is normal. Aortic Valve The left and non-coronary aortic valve cusps are heavily calcified with mildly restricted opening. No aortic regurgitation is present. There was mild aortic stenosis with aortic valve area of 1.5 cm2. A ortic valve peak gradient 17 mm Hg; aortic valve mean gradient 9 mm Hg. Mitral Valve The mitral valve is normal in structure. Mitral regurgitation is mild. There is no mitral valve steno sis. Tricuspid Valve The tricuspid valve is normal in structure. There is moderate tricuspid valve regurgitation noted, RV SP 70mmhg. Pulmonic Valve The pulmonary valve is normal in structure. There is mild pulmonic valvular regurgitation. Great Vessels The aortic root is normal in size. The IVC is normal in size and collapses >50% with inspiration. Pericardium There is no pericardial effusion. Conclusion Mild concentric left ventricular hypertrophy. Anteroapical hypokinesis. LVEF is 60-65%. Stage II diastolic dysfunction. The left atrium is severely dilated, with the LV ESV of 57 mL/m2. The left and non-coronary aortic valve cusps are heavily calcified with mildly restricted opening. There was mild aortic stenosis with aortic valve area of 1.5 cm2. Aortic valve peak gradient 17 mm Hg; aortic valve mean gradient 9 mm Hg. Mitral regurgitation is mild. There is moderate tricuspid valve regurgitation noted, RVSP 70mmhg.
[2024-12-10] VITALS (12 sets, daily range): BP systolic 113–150; BP diastolic 51–78; PULSE 51–87; RESP 16–19; TEMP 97–98.9; O2SAT 95–100
[2024-12-10 04:50] LABS: NUCLEATED RED BLOOD CELLS 0.4 % (0.0-0.19); PLATELET COUNT (AUTO) 171.0 K/uL (130-400); RED BLOOD CELL COUNT(AUTO) 2.89 MIL/uL (4.00-5.50); RED CELL DISTRIBUTION WIDTH 19.8 % (11.0-15.5); WHITE BLOOD COUNT (AUTO) 4.5 K/uL (4.8-10.8)
[2024-12-10 05:14] LABS: ASPARTATE AMINOTRANSFERASE 34.0 U/L (10-37); CREATININE 0.9 mg/dL (0.5-1.0); GLOMERULAR FILTR. RATE CALC 70.0 mL/min (>90); GLUCOSE,RANDOM 111.0 mg/dL (70-105); SODIUM SERUM 140.0 mmol/L (136-145); TOTAL PROTEIN, SERUM 4.5 g/dL (6.0-8.3); UREA NITROGEN, BLOOD 16.0 mg/dL (7-18)
--- NOTE | 2024-12-10 06:25 | HMCIMG ---
EXAM: Tc-99m RBC scan for GI bleeding. INDICATION: GI bleed. REFERENCE EXAMINATION: CT chest/abdomen/pelvis dated 12/07/2024. TECHNIQUE: 25.2 mCi of technetium 99m labelled RBC were administered intravenously, and dynamic images were acquired for 60 minutes. FINDINGS: Physiological uptake noted in the heart, liver, and renal parenchyma. Dynamic images show no abnormal activity in the abdomen during the period of study. IMPRESSION: Findings show no evidence of GI bleed during the period of study. /[place]
--- NOTE | 2024-12-10 07:32 | PN ---
PROBLEM LIST: * Severe anemia with hemoglobin of 4.9, with presumed GI bleeding on presentation. * History of enteric colitis by CT scan of the abdomen and pelvis, 12/07/2024. * Acute kidney injury, improved. * Diabetes mellitus with renal manifestation, retinopathy, and neuropathy. * Legal blindness, secondary to diabetic retinopathy. * History of paroxysmal atrial fibrillation, on chronic anticoagulation with Xarelto, currently on hold. * Hypertension. * History of pulmonary hypertension of questionable etiology. * History of severe 3-vessel coronary artery disease, status post coronary artery bypass cataract surgery x 4 in 2009. * Cardiac catheterization in 07/2024 demonstrates severe [place] 3-vessel coronary artery disease with patent 4 of 4 grafts, LI to the OM, saphenous vein graft to the LAD, saphenous vein graft to the first diagonal and a radial artery bypass to the posterior left ventricular branch with a patent stent within the radial artery bypass, with no other significant lesions. * History of nonobstructive bilateral renal artery stenosis. * Preserved LV systolic function with grade 3 diastolic dysfunction, [id number] aortic stenosis with a valve area of 1.3 cm2, with [id number] mitral stenosis with mitral valve area of 1.4 cm2 and moderate pulmonary hypertension with similar findings on repeat echocardiography on this admission. * History of anxiety and depression. * History of obesity, status post remote gastric bypass surgery. * Status post ERCP guided extraction of biliary stone in 11/2024. * Nontransmural MO, type 2 in the setting of severe anemia. * Negative upper endoscopy for active source of GI bleeding. This patient has been stable and has had no active cardiac complaints. She has been afebrile and had one measurement of 99 degrees. She is currently saturating at 100% on 1 liter of nasal cannula. Blood pressures have been in the 115-150 systolic range. This patient underwent an upper endoscopy yesterday, which was reportedly benign, with no obvious evidence of bleeding. As of now, there are no other plans to define whether or not the patient will require a colonoscopy. The patient is maintained on pantoprazole, which has been switched from oral to IV. She is also on atorvastatin, citalopram, furosemide, mirtazapine, buspirone, gabapentin, amlodipine, thiamine, folic acid, ferrous sulfate, MiraLax, Levaquin, and p.r.n. medications. The patient's antiplatelet and anticoagulation medications have been suspended as per the GI recommendations. These will be started whenever it is felt to be okay from the GI standpoint. Laboratory studies this morning revealed a sodium of 140 and a potassium of 3.3, being managed per protocol. Chloride is 108, CO2 is 28. The BUN is down to 16 with a creatinine down to 0.9 from 36 and 1.4 yesterday. The GFR is up to 70 from 41 yesterday. The patient's random glucose is 111. Total calcium is 7.1; however, the albumin is markedly diminished at 1.8, consistent with protein malnutrition. This degree of hypocalcemia is commensurate with the current degree of hypoalbuminemia. The patient's white count is 4.5. H and H have been stable at 8.9 and 27.9 respectively. The platelet count is 171,000. The patient did have a transfusion initially. From the cardiac standpoint, the plan is to continue the current management. I am awaiting recommendations from the GI team in regards to whether or not we are going to have any evaluation for colonoscopy to address any source of bleeding. I will also proceed with fecal occult blood assessment. We will await the initiation of anticoagulation after additional recommendations from GI. TID: [id number] RECEIPT: [id number]
--- NOTE | 2024-12-10 08:41 | HMCIMG ---
EXAMINATION: ULTRASOUND EXAMINATION OF THE KIDNEYS WITH SPECTRAL DOPPLER OF THE RENAL VESSELS. CLINICAL HISTORY: Back pain. COMPARISON: CT abdomen and pelvis without contrast dated 12/07/2024. TECHNIQUE: Grayscale and color ultrasound images of the kidneys, and spectral Doppler of the renal arteries are submitted. FINDINGS: The kidneys are normal in caliber, the right kidney measures 9.0 x 4.7 x 4.3 cm and the left kidney measures 9.2 x 3.8 x 4.1 cm in craniocaudal, AP, and transverse dimensions respectively. There is normal renal cortical thickness, and increased cortical echogenicity. There is no renal calculus, mass, or hydronephrosis. There is a simple cortical cyst that measures 2.7 x 2.5 x 2.7 cm in the left renal lower pole. Right Peak systolic velocities within the proximal, mid, and distal main right renal artery are 123, 136, and 135 cm/s respectively (resistive index of 0.8, 1.1, and 1.1). Peak systolic velocities within the right intrarenal upper, mid, and lower pole arteries are 42, 38, and 38 cm/s respectively (resistive index of 1.0, 1.0, and 0.6). Left Peak systolic velocities within the proximal, mid, and distal main left renal artery are 169, 78, and 64 cm/s respectively (resistive index of 0.9, 1.3, and 0.7). Peak systolic velocities within the left intrarenal upper, mid, and lower pole arteries are 46, 49, and 39 cm/s respectively (resistive index of 0.7, 1.0, and 0.9). Peak systolic velocity within the abdominal aorta at the level of the renal arteries is 134 cm/s and resistive index is 0.8 Right renal to aortic ratio: 1.1 Left renal to aortic ratio: 1.1 IMPRESSION: There is no renal arterial stenosis by measurement criteria. Increased echogenicity of both the kidneys may reflect renal parenchymal disease. Recommend clinical correlation and with laboratory parameters. Left renal simple cortical cyst. No significant interval change. /[place]
--- NOTE | 2024-12-10 10:08 | NUR ---
EMOTIONAL SUPPORT Per nurse KRISTOPHER, p was informed yesterday that her mother had . sw visited with pt who reports that her mother who had Alzheimer's, was on hospice when she . Services are scheduled for Tu and pt is hoping to be discharged before then to attend he services. Emotional support provided. Nurse KRISTOPHER informed.
[2024-12-10 18:41] LABS: APPEARANCE,URINE CLOUDY (CLEAR); GLUCOSE, URINE (UA) NEGATIVE (NEGATIVE); LEUKOCYTE ESTERASE ,URINE 500 Leu/uL (NEGATIVE); NITRATE,URINE NEGATIVE (NEGATIVE); OCCULT BLOOD,URINE LARGE (NEGATIVE)
[2024-12-10 18:46] LABS: SQUAMOUS EPITHELIAL CELL,UR RARE /HPF (0-2)
--- NOTE | 2024-12-10 19:58 | PN ---
[facility] PROGRESS NOTE Date Patient Seen: Dec 10, 2024 Time of Visit: 19:51 Supervising Physician: Dr Salgado Primary Care Physician: Ryley Worley MD Outpatient Specialists: Inpatient Consults: [place] PROBLEM LIST: Acute on chronic microcytic anemia, POA GENNA POA NSTEMI type 2 POA Acute hypoxemic respiratory failure, POA Hypovolemia 2/2 acute anemia, POA Lactic acidosis, POA, resolved Hyperglycemia in the presence of type 2 diabetes mellitus Moderate hypoalbuminemia Mild hypoproteinemia Chronic anticoagulants with Xarelto for AFib, POA Transaminitis Ascites Comorbidities: Gastric Bypass surgery in 2002 Type 2 diabetes mellitus Essential hypertension Hyperlipidemia History of atrial fibrillation on Xarelto last dose on 12/02/24 Gastritis Reason ERCP on 11/18/24 with findings of choledocholithiasis with complete removal accomplished by biliary sphincterotomy INTERVAL HISTORY: Patient has been seen and examined, nursing reports no acute events overnight. Patient is alert and oriented, sitting comfortably in bed, TOlerating DIet Patient got news today that her mother passed and would like to be discharged tomorrow. Vital signs are stable Afebrile Bleeding scan - neg for bleeding Renal US no occlusion Echo - Mild concentric left ventricular hypertrophy. Anteroapical hypokinesis. LVEF is 60-65%. Stage II diastolic dysfunction. There is moderate tricuspid valve regurgitation noted, RVSP 70mmhg. EGD - Plan: Hgb remained stable, pending final GI recs, whether Colonoscopy is pending for initiation of ANtiplt therapy. Follow cardiology recs Telemetry Monitoring for signs of bleeding, transfuse if needed Poss discharge in tomorrow, PT eval REVIEW OF SYSTEMS: Const: Positive for fatigue Eyes: no recent vision problems ENT: No congestion, ear pain, or sore throat C/V: no chest pain, palpitations or edema Resp: No cough, congestion, wheezing , or Shortness of breath GI: Positive for [Nausea no constipation or diarrhea. : No incontinence of or dyuria M/S: No joint or pain swelling Skin: No rash Neuro: no headache, focal numbness, or weakness, dizziness or seizures Psych: no depression or anxiety Heme: no abnormal bruising or bleeding Lymph: no swollen glands PHYSICAL EXAM: GENERAL: alert, weak, awake oriented x 3 HEENT: EOMI, Sclera non icteric, moist mucosa NECK: Supple, no JVD, trachea midline LUNGS: Clear breath sounds bilaterally. No wheezes HEART: Regular rate and rhythm. Normal S1 and S2, without murmurs ABD: Abdomen soft, nontender. Bowel sounds present EXT: No clubbing cyanosis or edema NEURO: Alert and oriented to person, follows commands Vital Signs (last 8hr) Date Time Temp Pulse Resp B/P (MAP) Pulse Ox O2 Delivery O2 Flow Rate FiO2 12/10/24 19:03 98.1 53 18 114/53 98 Nasal Cannula 12/10/24 16:00 98.1 55 16 120/59 99 Nasal Cannula 1.0 LABS: Hematology Labs: Test 12/10/24 03:34 Range/Units White Blood Count 4.5 L 4.8-10.8 K/uL Red Blood Count 2.89 L 4.00-5.50 MIL/uL Hemoglobin 8.9 L 12.0-16.0 g/dL Hematocrit 27.9 L 36-48 % Mean Corpuscular Volume 96.5 79-99 fL Mean Corpuscular Hemoglobin 30.8 27.0-33.0 pg Mean Corpuscular Hemoglobin Concent 31.9 L 32.0-36.0 g/dL Red Cell Distribution Width 19.8 H 11.0-15.5 % Platelet Count 171 130-400 K/uL Mean Platelet Volume 11.7 H 7.5-10.5 fL Nucleated Red Blood Cells 0.4 H 0.0-0.19 % Chemistry Labs: Test 12/10/24 03:34 12/09/24 12:58 Range/Units Sodium Level 140 136-145 mmol/L Potassium Level 3.3 L 3.5-5.1 mmol/L Chloride Level 108 101-111 mmol/L Carbon Dioxide Level 28 21-32 mmol/L Blood Urea Nitrogen 16 # 7-18 mg/dL Creatinine 0.9 0.5-1.0 mg/dL Glomerular Filtration Rate Calc 70 >90 mL/min Random Glucose 111 #H 70-105 mg/dL Total Calcium 7.1 L 8.5-10.1 mg/dL Total Bilirubin 0.6 0.2-1.0 mg/dL Aspartate Amino Transf (AST/SGOT) 34 10-37 U/L Alanine Aminotransferase (ALT/SGPT) 34 12-78 U/L Alkaline Phosphatase 80 50-136 U/L Total Protein 4.5 L 6.0-8.3 g/dL Albumin 1.8 L 3.5-5.0 g/dL Whole Blood Glucose 79 70-110 MG/DL DIAGNOSTICS / RADIOLOGY RESULTS: [ ] PLAN NEURO: Minimize central acting medications as possible. Maintain fall precautions, adequate lighting during the day PULMONARY: Supplemental 02 as needed. Maintain aspiration precautions at all times CARDIOVASCULAR: Follow hemodynamics. Vital signs per facility protocol GI & NUTRITION: Continue with nutritional support. Continue stool softeners and laxatives as needed. KIDNEYS & ELECTROLYTES: Strict monitoring of intake, output and overall fluid balance. Avoid nephrotoxic medications to the extent possible. Medications to be dosed according to renal function. Monitor electrolytes and replace as needed ENDOCRINE: Maintain blood glucose between 100-180 at all times. Hypoglycemia protocol in place INFECTIOUS DISEASE: Trend temperature, WBC and procalcitonin level Follow cultures, deescalate antibiotics as soon as possible. Panculture if new onset fever ONCOLOGY/HEMATOLOGY/COAGULATION: Monitor for s/s of bleeding Monitor hemoglobin, coagulation studies as needed SKIN: Pressure ulcer prevention per facility protocol Specialty mattress ORTHO/REHAB: Continue PT/OT Prophylaxis: Continue GI and DVT prophylaxis Code Status: Full Resuscitation Disposition: TBD Other: Total patient care time 36 minutes, excludes all procedures and educational FABIAN WARD Dec 10, 2024 19:58
[2024-12-11] VITALS (8 sets, daily range): BP systolic 101–149; BP diastolic 50–65; PULSE 47–65; RESP 16–20; TEMP 97.6–98.7; O2SAT 97–100
[2024-12-11 04:12] LABS: IMMATURE GRANULOCYTE ABSOLUTE 0.02 K/uL (0-1); NUCLEATED RED BLOOD CELLS 0.5 % (0.0-0.19); PLATELET COUNT (AUTO) 144 K/uL (130-400); RED BLOOD CELL COUNT(AUTO) 2.43 MIL/uL (4.00-5.50); RED CELL DISTRIBUTION WIDTH 19.2 % (11.0-15.5); WHITE BLOOD COUNT (AUTO) 3.8 K/uL (4.8-10.8)
[2024-12-11 04:35] LABS: ASPARTATE AMINOTRANSFERASE 25.0 U/L (10-37); CREATININE 0.7 mg/dL (0.5-1.0); GLOMERULAR FILTR. RATE CALC 95.0 mL/min (>90); GLUCOSE,RANDOM 100.0 mg/dL (70-105); SODIUM SERUM 141.0 mmol/L (136-145); TOTAL PROTEIN, SERUM 4.3 g/dL (6.0-8.3); UREA NITROGEN, BLOOD 9.0 mg/dL (7-18)
--- NOTE | 2024-12-11 07:26 | PN ---
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 She also has neuropathy. She is legally blind secondary to diabetic retinopathy. The patient has a history of paroxysmal atrial fibrillation for which she had been managed with chronic anticoagulation on Xarelto. She has a history of hypertension and history of pulmonary hypertension of questionable etiology. She has had a longstanding history of coronary artery disease with remote coronary artery bypass graft surgery x 4 in 2009. She underwent a cardiac catheterization in 07/2024, which demonstrated [place] severe 3-vessel coronary artery disease with 4 of 4 grafts to be patent. She also had a stent that had been deployed in the past in a radial artery bypass, which was also patent. She had been evaluated in the past with renal artery duplex that was fairly benign and this was also noted on this admission. The patient has preserved LV systolic function with qasc-vd-ptzikpdc aortic stenosis and moderate pulmonary hypertension with aoch-ei-sqvsvyhe mitral stenosis by prior echocardiography. She has a history of anxiety and depression. She has remote history of gastric bypass surgery for obesity. Most recently, she underwent an ERCP-guided extraction of biliary stone. She had severe anemia on presentation, which was felt to be secondary to bleeding. The patient did have a minor troponin bump in the setting of severe anemia consistent with type 2 myocardial infarction. The patient underwent an endoscopy during this hospitalization, which was apparently fairly benign. Yesterday, we obtained fecal occult blood testing, which was unfortunately positive. The patient is currently comfortable and her only complaint now is the fact that she has had some vertigo. She had some abdominal discomfort that has been vague. The vital signs are stable this morning. She is afebrile. Her heart rate is in the 40s-60s. Blood pressure is 120-140 systolic range. She is saturating at 100% on 1 L of nasal cannula. Laboratory studies this morning have revealed a positive stool for occult blood. Her white count is low at 3.8 with an H and H that has fallen to 7.4 and 23.4 from 8.9 and 27.9 yesterday. The patient's platelet count is 144,000. Her chemistries have been stable. Her sodium is 141, potassium 3.2 being managed per protocol. Chloride is 108, CO2 is 33, BUN 9, creatinine 0.7 with a GFR of 95. The patient's random glucose is 100. Her total calcium is low at 7.4; however, her albumin is markedly diminished at 1.7 consistent with significant protein malnutrition. Liver enzymes are normal. The patient is currently maintained on pantoprazole, atorvastatin, citalopram, furosemide, mirtazapine, buspirone, gabapentin, amlodipine, thiamine, folic acid, ferrous sulfate, MiraLax, Levaquin, and p.r.n. medications. From the cardiac standpoint, it is difficult to initiate therapy with anticoagulation again in the setting of severe anemia, particularly in the setting of positive stool for occult blood. The patient has had an upper endoscopy; however, she may benefit from a colonoscopy. We will communicate with the GI team to try and evaluate her bleeding. I will not make any additional recommendations from the cardiac standpoint. TID: [id number] RECEIPT: [id number]
--- NOTE | 2024-12-11 14:51 | NUR ---
CM NOTE/GI RECS CM spoke to Nubia Elliott [employer] regarding plan and recs about restarting anticoagulation. She clarified with Dr. Gil that no further endoscopies were planned and received orders to restart xarelto now. CM updated Tong ARSHAD and entered orders.
--- NOTE | 2024-12-11 17:41 | PN ---
[facility] PROGRESS NOTE Date Patient Seen: Dec 11, 2024 Time of Visit: 17:39 Supervising Physician: Dr Hoover Primary Care Physician: Ryley Worley MD Outpatient Specialists: Inpatient Consults: DESTINEE PROBLEM LIST: Acute on chronic microcytic anemia, POA GENNA POA NSTEMI type 2 POA Acute hypoxemic respiratory failure, POA Hypovolemia 2/2 acute anemia, POA Lactic acidosis, POA, resolved Hyperglycemia in the presence of type 2 diabetes mellitus Moderate hypoalbuminemia Mild hypoproteinemia Chronic anticoagulants with Xarelto for AFib, POA Transaminitis Ascites Comorbidities: Gastric Bypass surgery in 2002 Type 2 diabetes mellitus Essential hypertension Hyperlipidemia History of atrial fibrillation on Xarelto last dose on 12/02/24 Gastritis Reason ERCP on 11/18/24 with findings of choledocholithiasis with complete removal accomplished by biliary sphincterotomy INTERVAL HISTORY: Patient is seen and examined, patient is sitting comfortably in bed, at bedside, Nursing reports no acute events overnight. No bleeding. Patient is alert and oriented. Tolerating her diet. Her vitals are stable Afebrile Bleeding scan - neg for bleeding Renal US no occlusion Echo - Mild concentric left ventricular hypertrophy. Anteroapical hypokinesis. LVEF is 60-65%. Stage II diastolic dysfunction. There is moderate tricuspid valve regurgitation noted, RVSP 70mmhg. Plan: GI plans no further intervention and has cleared patient to resume Xarelto 20 mg q.p.m.. We are following cardiology recs We will monitor for signs of bleeding. If patient remains asymptomatic we will plan discharge in a.m.. PT in a.m.. REVIEW OF SYSTEMS: Const: Positive for fatigue Eyes: no recent vision problems ENT: No congestion, ear pain, or sore throat C/V: no chest pain, palpitations or edema Resp: No cough, congestion, wheezing , or Shortness of breath GI: Positive for [Nausea no constipation or diarrhea. : No incontinence of or dyuria M/S: No joint or pain swelling Skin: No rash Neuro: no headache, focal numbness, or weakness, dizziness or seizures Psych: no depression or anxiety Heme: no abnormal bruising or bleeding Lymph: no swollen glands PHYSICAL EXAM: GENERAL: alert, weak, awake oriented x 3 HEENT: EOMI, Sclera non icteric, moist mucosa NECK: Supple, no JVD, trachea midline LUNGS: Clear breath sounds bilaterally. No wheezes HEART: Regular rate and rhythm. Normal S1 and S2, without murmurs ABD: Abdomen soft, nontender. Bowel sounds present EXT: No clubbing cyanosis or edema NEURO: Alert and oriented to person, follows commands Vital Signs (last 8hr) Date Time Temp Pulse Resp B/P (MAP) Pulse Ox O2 Delivery O2 Flow Rate FiO2 12/11/24 16:00 97.9 65 20 131/55 100 Room Air 12/11/24 11:30 98.8 55 20 130/65 100 Room Air LABS: Hematology Labs: Test 12/11/24 03:42 Range/Units White Blood Count 3.8 L 4.8-10.8 K/uL Red Blood Count 2.43 L 4.00-5.50 MIL/uL Hemoglobin 7.4 L 12.0-16.0 g/dL Hematocrit 23.4 L 36-48 % Mean Corpuscular Volume 96.3 79-99 fL Mean Corpuscular Hemoglobin 30.5 27.0-33.0 pg Mean Corpuscular Hemoglobin Concent 31.6 L 32.0-36.0 g/dL Red Cell Distribution Width 19.2 H 11.0-15.5 % Platelet Count 144 130-400 K/uL Mean Platelet Volume 11.3 H 7.5-10.5 fL Immature Granulocyte % (Auto) 0.5 0-1 % Neutrophils (%) (Auto) 58.6 40.0-77.0 % Lymphocytes (%) (Auto) 22.3 21.0-51.0 % Monocytes (%) (Auto) 10.1 3.0-13.0 % Eosinophils (%) (Auto) 8.2 H 0.0-8.0 % Basophils (%) (Auto) 0.3 0.0-5.0 % Neutrophils # (Auto) 2.2 1.8-7.7 K/uL Lymphocytes # (Auto) 0.8 L 1.0-4.8 K/uL Monocytes # (Auto) 0.4 0.1-1.0 K/uL Eosinophils # (Auto) 0.31 0.00-0.70 K/uL Basophils # (Auto) 0.01 0.00-0.20 K/uL Absolute Immature Granulocyte (auto 0.02 0-1 K/uL Nucleated Red Blood Cells 0.5 H 0.0-0.19 % Chemistry Labs: Test 12/11/24 03:42 Range/Units Sodium Level 141 136-145 mmol/L Potassium Level 3.2 L 3.5-5.1 mmol/L Chloride Level 108 101-111 mmol/L Carbon Dioxide Level 33 H 21-32 mmol/L Blood Urea Nitrogen 9 7-18 mg/dL Creatinine 0.7 0.5-1.0 mg/dL Glomerular Filtration Rate Calc 95 >90 mL/min Random Glucose 100 70-105 mg/dL Total Calcium 7.4 L 8.5-10.1 mg/dL Total Bilirubin 0.5 0.2-1.0 mg/dL Aspartate Amino Transf (AST/SGOT) 25 10-37 U/L Alanine Aminotransferase (ALT/SGPT) 27 12-78 U/L Alkaline Phosphatase 71 50-136 U/L Total Protein 4.3 L 6.0-8.3 g/dL Albumin 1.7 L 3.5-5.0 g/dL DIAGNOSTICS / RADIOLOGY RESULTS: [ ] PLAN NEURO: Minimize central acting medications as possible. Maintain fall precautions, adequate lighting during the day PULMONARY: Supplemental 02 as needed. Maintain aspiration precautions at all times CARDIOVASCULAR: Follow hemodynamics. Vital signs per facility protocol GI & NUTRITION: Continue with nutritional support. Continue stool softeners and laxatives as needed. KIDNEYS & ELECTROLYTES: Strict monitoring of intake, output and overall fluid balance. Avoid nephrotoxic medications to the extent possible. Medications to be dosed according to renal function. Monitor electrolytes and replace as needed ENDOCRINE: Maintain blood glucose between 100-180 at all times. Hypoglycemia protocol in place INFECTIOUS DISEASE: Trend temperature, WBC and procalcitonin level Follow cultures, deescalate antibiotics as soon as possible. Panculture if new onset fever ONCOLOGY/HEMATOLOGY/COAGULATION: Monitor for s/s of bleeding Monitor hemoglobin, coagulation studies as needed SKIN: Pressure ulcer prevention per facility protocol Specialty mattress ORTHO/REHAB: Continue PT/OT Prophylaxis: Continue GI and DVT prophylaxis Code Status: Full Resuscitation Disposition: TBD Other: Total patient care time 44 minutes, excludes all procedures and educational FABIAN WADR Dec 11, 2024 17:41
[2024-12-11] MEDS: RIVAROXABAN 20 MG TABLET PO SCH (19:46)
[2024-12-12 03:20] VITALS: BP 139/62; PULSE 49; RESP 16; TEMP 97.5
[2024-12-12 04:41] LABS: IMMATURE GRANULOCYTE ABSOLUTE 0.01 K/uL (0-1); NUCLEATED RED BLOOD CELLS 0.0 % (0.0-0.19); PLATELET COUNT (AUTO) 146 K/uL (130-400); RED BLOOD CELL COUNT(AUTO) 2.34 MIL/uL (4.00-5.50); RED CELL DISTRIBUTION WIDTH 19.4 % (11.0-15.5); WHITE BLOOD COUNT (AUTO) 3.4 K/uL (4.8-10.8)
[2024-12-12 05:11] LABS: ASPARTATE AMINOTRANSFERASE 23.0 U/L (10-37); CREATININE 0.7 mg/dL (0.5-1.0); GLOMERULAR FILTR. RATE CALC 95.0 mL/min (>90); GLUCOSE,RANDOM 82.0 mg/dL (70-105); SODIUM SERUM 141.0 mmol/L (136-145); TOTAL PROTEIN, SERUM 4.1 g/dL (6.0-8.3); UREA NITROGEN, BLOOD 7.0 mg/dL (7-18)
[2024-12-12 07:26] VITALS: BP 150/59; PULSE 51; RESP 18; TEMP 97.9
[2024-12-12 08:00] VITALS: O2SAT 94
[2024-12-12] MEDS: PoTASSium chloRIDE 20MEQ ER 20 MEQ ERTAB PO ONE (09:42)
--- NOTE | 2024-12-12 10:13 | DS ---
[facility] DISCHARGE SUMMARY Date Patient Seen: Dec 12, 2024 Time of Visit: 10:07 Supervising Physician: Dr Hoover Primary Care Physician: Ryley Worley MD Outpatient Specialists: Inpatient Consults: DESTINEE PROBLEM LIST: Acute on chronic microcytic anemia, POA GENNA POA NSTEMI type 2 POA Acute hypoxemic respiratory failure, POA Hypovolemia 2/2 acute anemia, POA Lactic acidosis, POA, resolved Hyperglycemia in the presence of type 2 diabetes mellitus Moderate hypoalbuminemia Mild hypoproteinemia Chronic anticoagulants with Xarelto for AFib, POA Transaminitis Ascites Comorbidities: Gastric Bypass surgery in 2002 Type 2 diabetes mellitus Essential hypertension Hyperlipidemia History of atrial fibrillation on Xarelto last dose on 12/02/24 Gastritis Reason ERCP on 11/18/24 with findings of choledocholithiasis with complete removal accomplished by biliary sphincterotomy HOSPITAL COURSE: HPI 69 Yr old female with a past medical History of Blindness, gastric bypass, recent ERCP procedure with finding of choledocholithiasis with complete removal accomplished by biliary sphincterotomy on 11/18/24, Gastritis, type 2 diabetes mellitus, essential hypertension, hyperlipidemia, AFib on Xarelto with last dose three days ago, and external hemorrhoids who presented to the ED for chief complaint of vomiting x2 days, diarrhea and generalized weakness. She did report some mild shortness for breath on arrival and only eating eyes in the last 30 days due to fear of vomiting. Patient did report some dark colored stools and appetite has decreased per proximally a month. She denies any fever or chills. work up done in ED show: Initial hemoglobin of 4.7 15.5 platelet count of 280 K. chemistry BUN 57 creatinine 2.4 GFR of 22 with a glucose of 118 mg/dL lactic acid of 3.7 and total calcium of 7.9 initial sensitive troponin showed 1055 on repeat 1119. Likely from NSTEMI type 2 from demand supply mismatch from acute anemia. CT of the abdomen and pelvis with the contrast shows stable mild circumferential wall thickening of the bowel loops suggesting of the enterocolitis. There is interval abscess of the fluid collection of the gallbladder fossa. Stable left renal cortical cyst. Mild interval increase in the ascites. Stable mild left pleural effusion with minimal right pleural effusion. Chest x-ray shows left basilar retrocardiac airspace disease possibly representing atelectasis or infectious inflammatory process. On assessment patient appears pale awake alert and oriented x3. Reports generalized body weakness. Hemodynamically stable although blood pressure has been marginal and EKG showing sinus bradycardia with a heart rate in the 50s nonspecific interventricular conduction delay. Blood pressure 101/72 respiratory rate of 15 saturating 92% on room air. She is pending 2 units of PRBCs blood transfusion. We will add vitamin K order thiamine 300 mg IV q.day x3 days and folic acid 1 mg daily. We will continue to monitor H&H q.6 hours and admitted to the ICU due to high-risk for decompensation. GI has been consulted. ACTIVE PROBLEM LIST FOR THE HOSPITALIZATION: Acute on chronic microcytic anemia, POA GENNA POA NSTEMI type 2 POA Acute hypoxemic respiratory failure, POA Hypovolemia 2/2 acute anemia, POA Lactic acidosis, POA, resolved Hyperglycemia in the presence of type 2 diabetes mellitus Moderate hypoalbuminemia Mild hypoproteinemia Chronic anticoagulants with Xarelto for AFib, POA Transaminitis Ascites CHRONIC PROBLEMS: continue previous management per PCP unless otherwise celeste cated Comorbidities: Gastric Bypass surgery in 2002 Type 2 diabetes mellitus Essential hypertension Hyperlipidemia History of atrial fibrillation on Xarelto last dose on 12/02/24 Gastritis [employer]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 DISCHARGE MEDICATIONS: Resume patient's antihypertensives and antiplatelet therapy. Pt hemodynamically stable and afebrile at time of discharge. PCP notified of patients admission, hospital course and discharge. PHYSICAL EXAM: GENERAL: alert, weak, awake oriented x 3 HEENT: EOMI, Sclera non icteric, moist mucosa NECK: Supple, no JVD, trachea midline LUNGS: Clear breath sounds bilaterally. No wheezes HEART: Regular rate and rhythm. Normal S1 and S2, without murmurs ABD: Abdomen soft, nontender. Bowel sounds present EXT: No clubbing cyanosis or edema NEURO: Alert and oriented to person, follows commands FOLLOW-UP: Follow-up with PCP in 2-3 days RECOMMENDATIONS: See Discharge Instructions Return precautions Follow-up appointment with GI for outpatient colonoscopy Follow-up appointment with Cardiology This case was seen and discussed with my supervising physician. More than 30 minutes spent on discharge process, including evaluation of the patient, discussion with nursing staff, medication reconciliation and follow-up appointments FABIAN WARD Dec 12, 2024 10:13
[2024-12-12 12:56] VITALS: BP 131/53; PULSE 50; RESP 18; TEMP 98.6
--- NOTE | 2024-12-12 13:45 | PN ---
[facility] CARDIOLOGY PROGRESS NOTE Date Patient Seen: Dec 12, 2024 Time of Visit: 13:40 Interval History: No acute events overnight. The patient's hemoglobin is currently 7.2 g, GI team has decided to initiate Xarelto 20 mg daily, LVEF of 60% with a grade diastolic dysfunction., the patient currently denies any cardiac symptoms of anginal equivalents Physical Examination: GENERAL: [No acute distress.] HEAD: [Normal with no signs of head trauma.] EYES: [PERRLA, EOMI, conjunctiva and sclera normal.] ENT: [Hearing grossly intact, normal oropharynx.] NECK: [Supple without JVD. There is no tenderness, lymphadenopathy, or masses. No thyromegaly. Normal carotid upstrokes without bruits.] LUNGS: [Clear breath sounds bilaterally. . No wheezes, or rhonchi.] HEART: [Normal rate and rhythm. Normal S1 and S2 without mumurs, gallop or rub.] VASC: [Peripheral pulses +2 bilaterally.] ABD: [Bowel sounds normal, soft, nontender, no masses, no organomegaly. No audible bruits.] : [Not examined] LYMPH: [No lymphadenopathy noted.] EXT: [No clubbing, cyanosis or edema.] SKIN: [No rashes or lesions noted.] NEURO: [Awake, alert, and oriented x3. No focal sensory or strength deficits noted.] Laboratory: [ ] Hematology Labs: Test 12/12/24 04:09 Range/Units White Blood Count 3.4 L 4.8-10.8 K/uL Red Blood Count 2.34 L 4.00-5.50 MIL/uL Hemoglobin 7.2 L 12.0-16.0 g/dL Hematocrit 22.8 L 36-48 % Mean Corpuscular Volume 97.4 79-99 fL Mean Corpuscular Hemoglobin 30.8 27.0-33.0 pg Mean Corpuscular Hemoglobin Concent 31.6 L 32.0-36.0 g/dL Red Cell Distribution Width 19.4 H 11.0-15.5 % Platelet Count 146 130-400 K/uL Mean Platelet Volume 11.2 H 7.5-10.5 fL Immature Granulocyte % (Auto) 0.3 0-1 % Neutrophils (%) (Auto) 54.9 40.0-77.0 % Lymphocytes (%) (Auto) 26.0 21.0-51.0 % Monocytes (%) (Auto) 10.1 3.0-13.0 % Eosinophils (%) (Auto) 8.1 H 0.0-8.0 % Basophils (%) (Auto) 0.6 0.0-5.0 % Neutrophils # (Auto) 1.8 1.8-7.7 K/uL Lymphocytes # (Auto) 0.9 L 1.0-4.8 K/uL Monocytes # (Auto) 0.3 0.1-1.0 K/uL Eosinophils # (Auto) 0.27 0.00-0.70 K/uL Basophils # (Auto) 0.02 0.00-0.20 K/uL Absolute Immature Granulocyte (auto 0.01 0-1 K/uL Nucleated Red Blood Cells 0.0 0.0-0.19 % Chemistry Labs: Test 12/12/24 04:09 Range/Units Sodium Level 141 136-145 mmol/L Potassium Level 3.4 L 3.5-5.1 mmol/L Chloride Level 107 101-111 mmol/L Carbon Dioxide Level 33 H 21-32 mmol/L Blood Urea Nitrogen 7 7-18 mg/dL Creatinine 0.7 0.5-1.0 mg/dL Glomerular Filtration Rate Calc 95 >90 mL/min Random Glucose 82 70-105 mg/dL Total Calcium 7.4 L 8.5-10.1 mg/dL Total Bilirubin 0.4 0.2-1.0 mg/dL Aspartate Amino Transf (AST/SGOT) 23 10-37 U/L Alanine Aminotransferase (ALT/SGPT) 25 12-78 U/L Alkaline Phosphatase 63 50-136 U/L Total Protein 4.1 L 6.0-8.3 g/dL Albumin 1.7 L 3.5-5.0 g/dL Diagnostics / Radiology: [Copy/Paste Echos/Imaging Report here] Impression and Plan: [[GI bleed Acute blood loss anemia Enterocolitis via CT of the abd/pelvis on 12/07/2024 GENNA on CKD stage 2 NSTEMI, Type II Paroxysmal atrial fibrillation on chronic anticoagulation with Xarelto Hypertension Diabetes mellitus type 2 Pulmonary hypertension CAD s/p CABG x 4 in 11/2009 Lexiscan stress test in 03/26/2024 revealed large zones of reversible anterior, apical, inferior, and lateral wall ischemia LHC/coronary angiogram on 07/23/2024 demonstrated severe three-vessel CAD, patent 4/4 grafts LI-OM, SVG-LAD, SVG-D1, radial graft to PLVB, patent radial artery stent, and bilateral nonobstructive renal artery stenosis 2D echo on 04/23/2024 with an LVEF of 60%, grade 3 diastolic dysfunction, [id number] aortic stenosis with APRIL 1.3 cm2, AV peak of 22.3 mmHg, AV mean of 10.9 mmHg, severe posterior MAC with mild MR, [id number] calcific nonrheumatic mitral stenosis with a MVA of 1.4cm2, MV peak of 13.2 mmHg, and MV mean of 3 mmHg, moderate TR, and RVSP of 50-60 mmHg Anxiety Depression Obesity status post gastric bypass in 2021 ERCP on 11/18/2024 with stone removed from the biliary tree #NSTEMI, Type II Troponin of 1055, 1119, and 1034 LHC/coronary angiogram on 07/23/2024 demonstrated severe three-vessel CAD, patent 4/4 grafts LI-OM, SVG-LAD, SVG-D1, radial graft to PLVB, and a patent radial artery stent -The patient is not a candidate for beta mulu therapy due to resting bradycardia with heart rates in the 40s. Do not continue Amiodarone upon discharge. -Recommend medical management, continue Statin -2D echocardiogram revealed LV EF 60%, grade 3 diastolic dysfunction -hemoglobin is now 7.2 g #Paroxysmal atrial fibrillation Currently sinus bradycardia hr 40's -No AV archie blocking agents -we have telemetry sinus rhythm with heart rate off75 beats per minute -if OB was positive. GI team recommended to initiate Xarelto 20 mg daily Thank you for this consult cardiology will sign off at this time the epidural follow up in clinic 1-2 weeks after discharge Richard barriga MD ] ATTESTATION BY PHYSICIAN I have seen and examined the patient, reviewed the above documentation, participated in medical decision making, made necessary modifications, and agree with the treatment plan as documented by my mid-level provider above. MD JOSE Estrada JAMES R MD Dec 12, 2024 13:44
--- NOTE | 2024-12-12 17:42 | NUR ---
DISCHARGE HOME IV, TELAPAK AND ID BANDS REMOVED. DISCHARGE INSTRUCTION GIVEN AND EXPLAINED TO PATIENT AND SPOUSE. BELONGINGS PACKED BY SPOUSE. PATIENT WHEELED DOWN TO PRIVATE CAR.
== END 2024-12-12 18:24 | disposition home or self-care (01) | DRG 377 ==
LOC: EDH 08:54 → EDHIP 09:41 → 2CH 10:36 → 2DH 12-08 16:00
PROVIDERS: ADMIT Internal Medicine Critical Care Medicine; ATTEND Internal Medicine Critical Care Medicine
PROC: 30233N1 Transfusion of Nonautologous Red Blood Cells into Peripheral Vein, Percutaneous Approach (ICD-10-PCS; 2024-12-07)
PROC: 0DJ08ZZ Inspection of Upper Intestinal Tract, Via Natural or Artificial Opening Endoscopic (ICD-10-PCS; principal; 2024-12-09)
DX: K29.01 Acute gastritis with bleeding (principal); I21.A1 Myocardial infarction type 2; J96.01 Acute respiratory failure with hypoxia; D62 Acute posthemorrhagic anemia; E87.20 Acidosis, unspecified; N17.9 Acute kidney failure, unspecified; R18.8 Other ascites; E46 Unspecified protein-calorie malnutrition; E11.65 Type 2 diabetes mellitus with hyperglycemia; E77.8 Other disorders of glycoprotein metabolism; E86.1 Hypovolemia; E88.09 Other disorders of plasma-protein metabolism, not elsewhere classified; Z98.84 Bariatric surgery status; E11.22 Type 2 diabetes mellitus with diabetic chronic kidney disease; E11.319 Type 2 diabetes mellitus with unspecified diabetic retinopathy without macular edema; E78.00 Pure hypercholesterolemia, unspecified; F32.A Depression, unspecified; I25.10 Atherosclerotic heart disease of native coronary artery without angina pectoris; I12.9 Hypertensive chronic kidney disease with stage 1 through stage 4 chronic kidney disease, or unspecified chronic kidney disease; H54.8 Legal blindness, as defined in USA; E83.51 Hypocalcemia; I08.3 Combined rheumatic disorders of mitral, aortic and tricuspid valves; F41.9 Anxiety disorder, unspecified; I48.0 Paroxysmal atrial fibrillation; N18.2 Chronic kidney disease, stage 2 (mild); Z79.01 Long term (current) use of anticoagulants; Z79.899 Other long term (current) drug therapy; Z90.710 Acquired absence of both cervix and uterus; Z95.1 Presence of aortocoronary bypass graft; Z68.29 Body mass index [BMI] 29.0-29.9, adult
CPT/HCPCS: 36415; 43235; 71045; 74176; 78278; 80048; 80051; 80053; 80076; 81001; 82270; 82550; 82746; 82948; 83605; 83690; 83735; 84100; 84145; 84425; 84443; 84484; 85014; 85018; 85025; 85027; 85378; 85610; 85730; 86850; 86900; 86901; 86923; 87635; 87804; 93005; 93306; 93975; 96374; 96375; 99285; A4606; A9512; G0378; J1956; J2354; J2405; J2470; J2704; J3411; J3430; J3490; J7030; J7050; J7070; P9016; A4215; A4221; A4222; A4223

== ENCOUNTER → 2025-01-28 | Outpatient (CLI) | payer OTHER ==
[~2025-01-28] MED LIST changes: -AMIO200T73 PO; -HYDR25TA67 PO; +IOHEXOL 350 MG/ML 100ML INFUS..BTL IV ONE
--- NOTE | 2025-02-01 18:25 | CARDIOLOGY ---
RAD REPORT: CORNARY CT ANGIO RADIOLOGY REPORT: CORONARY CT ANGIOGRAPHY DATE: Jan 28, 2025 QUALITY: Excellent CLINICAL HISTORY AND INDICATION: [ CABG ] TECHNIQUE: After obtaining a preliminary reception clerk image, contrast imaging performed on an [employer] [id number] scanner. A dedicated, limited window, coronary imaging protocol was used, with single breath-hold, retrospective ECG gating, and automated arrhythmia rejection. 100 cc of low osmolar contrast agent: Omnipaque 350 was delivered via a 18-gauge IV catheter in the right antecubital fossa, using a power injector and followed by 60 cc of normal saline bolus as a chaser. Collimated images were reformatted at 0.5 mm intervals, and sent to an offline independent workstation for interpretation, using 3D anatomic reconstructions: Curved multiplanar reconstructions, maximum intensity projections, and multiplanar imaging. No metoprolol was administered prior to scanning due to low baseline heart rate. 0.8 mg SL nitroglycerin was given. CORONARY ARTERY DESCRIPTIONS: The coronary arteries arise in normal position. Left main coronary artery: Normal caliber vessel that bifurcates into the LAD and LCx. Left main is subtotally occluded. Left anterior descending coronary artery: Normal caliber vessel and gives rise to diagonal and septal branches. Subtotally occluded ostial/proximal LAD. Left circumflex coronary artery: Normal caliber, nondominant and gives rise to a large OM branch. MOLDER SETTER proximal LCx. Right coronary artery: Large, dominant vessel giving rise to the PL and PDA branches. MOLDER SETTER proximal RCA. PL MOLDER SETTER. Patent LI to OM. Patent radial artery to R PL. Patent drug eluting stent in the proximal radial artery. Patent sequential SVG to LAD and D1. Thoracic Aorta: Normal diameter. Huyen Callahan MD Cardiovascular Disease [facility] [address] HUYEN CALLAHAN MD Feb 01, 2025 18:25
== END | disposition home or self-care (01) ==
LOC: RAH 07:26
PROVIDERS: ATTEND Internal Medicine Cardiovascular Disease
DX: I25.10 Atherosclerotic heart disease of native coronary artery without angina pectoris (principal); R07.9 Chest pain, unspecified; Z95.1 Presence of aortocoronary bypass graft
CPT/HCPCS: 75574; Q9967